=== PATIENT | male | born 1955 | race African-American/Black ===

== ENCOUNTER 2017-08-31 12:36 | Inpatient (IN) | payer MEDICARE, MEDICAID ==
[2017-08-31] MEDS ORDERED: Azithromycin 500 MG VIAL ONE (13:26)
[2017-08-31 13:29] LABS: #Lymphocytes 1.6 thou/uL (1.20-3.40); #Monocytes 0.4 thou/uL (0.11-0.59); #Neutrophils 2.7 thou/uL (1.40-6.50); %Eosinophils 0.8 % (0.0-10.0); %Lymphocytes 33.8 % (21.0-51.0); %Neutrophils 56.4 % (42.0-75.0); Hemoglobin 14.1 g/dL (14.0-18.0); Mean Corpuscular HGB CONC 33.1 g/dL (32.0-36.0); Mean Corpuscular Hemoglobin 27.5 pg (27.0-31.0); Mean Platelet Volume 7.3 fL (7.4-10.4); Platelet Count 216 thou/uL (130-400); RBC Distribution Width 12.9 % (11.5-14.5); Red Blood Cell (RBC) Count 5.12 mill/uL (4.70-6.10); White Blood Cell (WBC) Count 4.7 thou/uL (4.8-10.8)
[2017-08-31 13:46] LABS: ALT (SGPT) 8 U/L (8-55); AST (SGOT) 11 U/L (5-34); Alkaline Phosphatase 78 U/L (40-150); Anion Gap 12 mmol/L (10-20); BUN (Urea Nitrogen) 9 mg/dL (8.4-25.7); Bilirubin, Total 0.9 mg/dL (0.2-1.2); CK (CPK) 142 U/L (30-200); Calc. Creatinine Clearance 0 mL/min (70-130); Carbon Dioxide 27 mmol/L (23-31); Chloride 104 mmol/L (98-107); Estimated GFR-MDRD 77; Globulin 3.3 g/dL (2.4-3.5); Glucose 271 mg/dL (80-115); Potassium 3.8 mmol/L (3.5-5.1); Protein, Total 7.3 g/dL (5.8-8.1); Sodium 139 mmol/L (136-145)
[2017-08-31 13:48] LABS: CKMB 0.9 ng/mL (0-6.6); Troponin I Less than 0.010 ng/mL (< 0.028)
--- NOTE | 2017-08-31 13:55 | RAD ---
PORTABLE CHEST: Date: 08/31/17 HISTORY: Cough. Dyspnea. FINDINGS: Lungs appear well aerated and clear on portable projection. No infiltrate identified. Heart and media stinum unremarkable. No evidence of vascular congestion. IMPRESSION: No acute abnormality identified. POS: [facility]
[2017-08-31] MEDS ORDERED: Acetaminophen 325 MG TAB ONE (14:24)
[2017-08-31] MEDS ORDERED: methylPREDNISolone Sod Succ/PF 125 MG/2 ML VIAL ONE (14:24)
[2017-08-31] MEDS ORDERED: Calcium Carbonate 500 MG ChewTAB PO PRN (14:29)
[2017-08-31] MEDS ORDERED: Loratadine 10 MG TAB PO PRN (14:29)
[2017-08-31] MEDS ORDERED: Acetaminophen 325 MG TAB PO PRN (14:29)
[2017-08-31] MEDS ORDERED: Benzonatate 100 MG CAP PO PRN (14:29)
[2017-08-31] MEDS ORDERED: Mag-Al 1200 mg/1200 mg/30 ML UDCUP PO PRN (14:29)
[2017-08-31] MEDS ORDERED: Ondansetron HCl/PF 4 MG/2 ML Vial IVP PRN ×2 (14:29)
[2017-08-31] MEDS ORDERED: Nitroglycerin 0.4 MG TAB (25 Tab Bottle) SL PRN (14:29)
[2017-08-31] MEDS ORDERED: Bisacodyl 5 MG TAB PO PRN (14:29)
[2017-08-31] MEDS ORDERED: Senokot 8.6 MG TAB PO PRN (14:29)
[2017-08-31] MEDS ORDERED: hydrALAZINE 20 MG/ML VIAL SLOW IVP PRN (14:29)
[2017-08-31] MEDS ORDERED: cloNIDine 0.1 MG TAB PO PRN (14:29)
[2017-08-31] MEDS ORDERED: Dextrose 5% in Water 1,000 ML IV PRN (14:32)
[2017-08-31] MEDS ORDERED: Dextrose 50% Abboject 50 ML SYRINGE SLOW IVP PRN (14:32)
--- NOTE | 2017-08-31 16:03 | HP ---
DATE OF ADMISSION: 08/31/2017 PRIMARY CARE PHYSICIAN: Javier Mishra M.D. CHIEF COMPLAINT: Fever, chills, cough, shortness of breath, and malaise. HISTORY OF PRESENT ILLNESS: Mr. Mercado is a 61-year-old male with past medical history of diabetes m ellitus, tobacco abuse, as well as lower extremity DVT on chronic anticoagulation and hypertension, w ho presented to the ER with above-mentioned complaint. History is mainly obtained by the patient him self and case has been discussed with the admitting ER physician. Electronic medical records have be en reviewed. Mr. Mercado reports that he recently moved to the area about 1 month ago from [place] and has establis hed care with Dr. Mishra 1 month ago. He has been compliant with his medication, but continues to sm [place] a pack of cigarettes per day. He started to feel bad about 2 weeks ago with the above-mentioned symptoms. His nephew was sick around him. He has been having episodes of subjective fever with wors ening symptoms. He had 2 episodes of vomiting last night and got short of breath with fever, chills, and worsening cough, so he decided to present to the ER this morning. Upon presentation to the ER, he was tachycardic with heart rate of 115 and somewhat hypoxic with oxyg en saturation in low 90s on room air. Initial workup included a chest x-ray, which showed right lowe r lobe pneumonia, otherwise unremarkable. He received empiric IV antibiotics in the ER in the form o f Rocephin and azithromycin. He was also found to have significant wheezing for emergency room physi ricardo and was given IV steroids and nebulizers with improvement in his symptoms. He is now being admitted for pneumonia and acute COPD exacerbation. PAST MEDICAL HISTORY: 1. Multiple cerebrovascular accidents. According to the patient, he has had 4 strokes. 2. Diabetes mellitus type 2. 3. History of asthma versus chronic obstructive pulmonary disease. 4. Tobacco abuse. 5. Hypertension. 6. Lower extremity DVT, on anticoagulation for multiple years. 7. Dyslipidemia. 8. Gastroesophageal reflux disease. PAST SURGICAL HISTORY: 1. Lumbar spinal surgery. 2. IVC filter placement 4 years ago in [place]. ALLERGIES: No known medication allergies. CURRENT MEDICATIONS: As per the ER records: Xarelto 20 mg daily, Levemir 25 units b.i.d., amlodipin e 10 mg daily, and gabapentin 1200 mg b.i.d. SOCIAL HISTORY: He recently moved here from [place]. He needs a cane to ambulate. He continues to smoke a pack of cigarettes per day for multiple years. No history of alcohol or drug abuse. FAMILY HISTORY: Significant for stroke and diabetes in his brother. REVIEW OF SYSTEMS: The following complete review of systems was negative, unless otherwise mentioned in the HPI or below: Constitutional: Weight loss or gain, ability to conduct usual activities. Skin: Rash, itching. Eyes: Double vision, pain. ENT/Mouth: Nose bleeding, neck stiffness, pain, tenderness. Cardiovascular: Palpitations, dyspnea on exertion, orthopnea. Respiratory: Shortness of breath, wheezing, cough, hemoptysis, fever or night sweats. Gastrointestinal: Poor appetite, abdominal pain, heartburn, nausea, vomiting, constipation, or diarr hea. Genitourinary: Urgency, frequency, dysuria, nocturia. Musculoskeletal: Pain, swelling. Neurologic/Psychiatric: Anxiety, depression. Allergy/Immunologic: Skin rash, bleeding tendency. It is negative except for those mentioned in the history and physical. LABORATORY DATA: His CBC shows WBCs of 4.7, otherwise unremarkable. Serum chemistries are unremarka ble. Blood sugar is 271. Cardiac enzymes are normal. BNP is normal. Chest x-ray by my review has no evidence to suggest pleural edema. It is concerning for right lower lobe infiltrate. A 12-lead EKG by my review does not have any acute ST or T-wave changes. It shows normal sinus rhyth m at 111 beats per minute. PHYSICAL EXAMINATION: VITAL SIGNS: Upon presentation, blood pressure 131/81, pulse of 115, saturating 94% on room air, res pirations 20, temperature 99.9 with T-max of 100. GENERAL: No acute distress, awake, alert, oriented x3. He does appear somewhat ill and sweaty. HEENT: Mucous membrane is moist and pink. No oropharyngeal exudate or erythema. Head is normocepha lic, atraumatic. Pupils are equal, reactive to light and accommodation. Extraocular movements are i ntact. NECK: Supple without any lymphadenopathy, JVD or bruit. CHEST: Clear to auscultation except for faint wheezes bilaterally. CARDIOVASCULAR: Rate and rhythm is regular without any murmur, rubs or gallops. ABDOMEN: Soft, nontender, nondistended with positive bowel sounds. EXTREMITIES: Free of any cyanosis, clubbing, or edema. NEUROLOGIC: Nonfocal. SKIN: Free of any rashes or bruises. I feel warm and dry to touch. PSYCHIATRIC: Normal affect. IMPRESSION AND PLAN: 1. Right lower lobe pneumonia. The patient will be admitted and started on IV antibiotics and IV fl uids. Cultures have been obtained in the emergency room and we will follow the results. Add p.r.n. medications in the form of Mucinex, nebulizers, etc. Continue oxygen supplementation. 2. Acute chronic obstructive pulmonary disease exacerbation. We will continue with nebulizer schedu led and p.r.n. as well as IV steroids. Add Dulera scheduled basis until he is in the hospital. Cont inue oxygen supplementation to maintain sats above 95 at this time. 3. History of hypertension. We will restart his home medications of amlodipine at this time and add p.r.n. medications for further blood pressure control. 4. Diabetes mellitus type 2. Resume Levemir and add insulin sliding scale for further control with frequent Accu-Cheks. Continue his gabapentin for now. 5. History of deep venous thrombosis. The patient reports that he was told that he needs to take th e Xarelto for the rest of his life, so for this reason, we will resume his home medications. He is r eportedly status post inferior vena cava filter placement. 6. Add gastrointestinal prophylaxis. 7. Code status: FULL CODE. Discussed with the patient. DISPOSITION: Mr. Mercado is currently being admitted to the hospital for acute COPD exacerbation and right lower lobe pneumonia. He is hemodynamically stable and will be admitted to medical floor. Est imated length of stay at this time is 2-3 midnight. Further management will depend upon his clinical course.
[2017-08-31] MEDS ORDERED: traZODone HCl 50 MG TAB PO PRN (16:06)
[2017-08-31 17:04] VITALS: BMI 37.7
[2017-08-31 17:10] LABS: Troponin I Less than 0.010 ng/mL (< 0.028)
[2017-08-31] MEDS: Sodium Chloride 0.9% 1,000 ML IV SCH (17:20)
[2017-08-31] MEDS: Rivaroxaban 10 MG TAB PO SCH (17:23)
[2017-08-31] MEDS: HumaLOG 300 UNITS/3 ML VIAL SC PRN ×2 (17:27→21:07)
[2017-08-31] MEDS ORDERED: Insulin Detemir 100 UNITS/ML 25 UNITS in Pre-Filled Syringe 1 EACH SC SCH (21:00)
[2017-08-31] MEDS: Gabapentin 400 MG CAP PO SCH (21:02)
[2017-08-31] MEDS: Famotidine 20 MG TAB PO SCH (21:03)
[2017-08-31] MEDS: guaiFENesin ER 600 MG TAB PO SCH (21:03)
[2017-08-31] MEDS: Mometasone/Formoterol 120 PUFF INHALER INH SCH (21:09)
[2017-08-31 23:08] LABS: Troponin I Less than 0.010 ng/mL (< 0.028)
[2017-09-01] MEDS: HumaLOG 300 UNITS/3 ML VIAL SC PRN ×4 (05:22→21:39)
[2017-09-01 05:39] LABS: #Lymphocytes 1.4 thou/uL (1.20-3.40); #Monocytes 0.1 thou/uL (0.11-0.59); #Neutrophils 3.5 thou/uL (1.40-6.50); %Basophils 0.2 % (0.0-1.0); %Eosinophils 0.1 % (0.0-10.0); %Lymphocytes 27.7 % (21.0-51.0); %Monocytes 2.7 % (0.0-10.0); %Neutrophils 69.3 % (42.0-75.0); Hemoglobin 13.2 g/dL (14.0-18.0); Mean Corpuscular HGB CONC 31.9 g/dL (32.0-36.0); Mean Corpuscular Hemoglobin 26.5 pg (27.0-31.0); Mean Corpuscular Volume 82.9 fl (80.0-94.0); Mean Platelet Volume 7.5 fL (7.4-10.4); Platelet Count 219 thou/uL (130-400); RBC Distribution Width 12.9 % (11.5-14.5); Red Blood Cell (RBC) Count 4.98 mill/uL (4.70-6.10)
[2017-09-01 05:50] LABS: Anion Gap 12 mmol/L (10-20); BUN (Urea Nitrogen) 13 mg/dL (8.4-25.7); Calc. Creatinine Clearance 95 mL/min (70-130); Calcium 9.2 mg/dL (7.8-10.44); Carbon Dioxide 26 mmol/L (23-31); Chloride 104 mmol/L (98-107); Estimated GFR-MDRD 81; Glucose 416 mg/dL (80-115); Potassium 3.9 mmol/L (3.5-5.1); Sodium 138 mmol/L (136-145)
[2017-09-01] MEDS: Mometasone/Formoterol 120 PUFF INHALER INH SCH ×2 (06:58→19:00)
[2017-09-01] MEDS ORDERED: Spiriva 18 MCG CAP (Box of 5 Caps) INH SCH (07:00)
[2017-09-01] MEDS: Nicotine 21 MG PATCH TD SCH (07:56)
[2017-09-01] MEDS: Amlodipine 10 MG TAB PO SCH ×2 (07:57)
[2017-09-01] MEDS: Famotidine 20 MG TAB PO SCH ×2 (07:57→21:37)
[2017-09-01] MEDS: Gabapentin 400 MG CAP PO SCH ×3 (07:57→21:37)
[2017-09-01] MEDS: guaiFENesin ER 600 MG TAB PO SCH ×2 (08:02→21:37)
[2017-09-01] MEDS ORDERED: Enoxaparin Sodium 40 MG/0.4 ML SYRINGE SC SCH (09:00)
[2017-09-01] MEDS ORDERED: Insulin Detemir 100 UNITS/ML 25 UNITS in Pre-Filled Syringe 1 EACH SC SCH (09:00)
[2017-09-01] MEDS ORDERED: Dextrose 5% in Water 1,000 ML IV PRN (11:46)
[2017-09-01] MEDS ORDERED: Dextrose 50% Abboject 50 ML SYRINGE SLOW IVP PRN (11:46)
[2017-09-01] MEDS: Sodium Chloride 0.9% 1,000 ML IV SCH (11:51)
[2017-09-01] MEDS ORDERED: Azithromycin 500 MG in Sodium Chloride 0.9% 250 ML 250 ML IVPB SCH (13:00)
--- NOTE | 2017-09-01 13:58 | PDOC.PN ---
- Subjective Encounter Start Date: 09/01/17 Encounter Start Time: 13:56 Subjective: feels much better ,still some cough but much better -: no more fever/chills/SOB - Objective MAR Reviewed: Yes Vital Signs & Weight: Vital Signs (12 hours) Temp Pulse Resp BP BP Pulse Ox 09/01/17 11:11 97.5 F L 93 16 146/77 H 97 09/01/17 08:00 97.8 F 94 16 94 L 09/01/17 07:57 94 138/81 09/01/17 07:27 97.8 F 94 16 138/81 94 L 09/01/17 06:56 86 20 96 09/01/17 04:00 98.0 F 86 20 130/76 96 I&O: 08/31/17 09/01/17 09/02/17 06:59 06:59 06:59 Intake Total 1800 240 Output Total 800 Balance 1000 240 Result Diagrams: 09/01/17 04:53 09/01/17 04:53 Additional Labs: Accuchecks 09/01/17 09/01/17 08/31/17 11:12 04:03 16:32 POC Glucose 406 H 389 H 242 H Microbiology 08/31/17 13:25 Venous blood - Right Hand Blood Culture - Preliminary Specimen has been received and culture in progress. No Growth to date. 08/31/17 13:16 Venous blood - Left Arm Blood Culture - Preliminary Specimen has been received and culture in progress. No Growth to date. Phys Exam - Physical Examination Constitutional: NAD HEENT: PERRLA, moist MMs, sclera anicteric, oral pharynx no lesions Neck: no nodes, no JVD, supple, full ROM Respiratory: no wheezing, no rales, no rhonchi, clear to auscultation bilateral Cardiovascular: RRR, no significant murmur, no rub, gallop Gastrointestinal: soft, non-tender, no distention, positive bowel sounds Musculoskeletal: no edema, pulses present Neurological: non-focal, normal sensation, moves all 4 limbs Psychiatric: normal affect, A&O x 3 Dx/Plan (1) PNA (pneumonia) Code(s): J18.9 - PNEUMONIA, UNSPECIFIED ORGANISM Status: Acute (2) Acute exacerbation of chronic obstructive pulmonary disease (COPD) Code(s): J44.1 - CHRONIC OBSTRUCTIVE PULMONARY DISEASE W (ACUTE) EXACERBATION Status: Acute Comment: Cont IV steroids,nebs,mucinex,abx,dulera (3) H/O: CVA (cerebrovascular accident) Code(s): Z86.73 - PRSNL HX OF TIA (TIA), AND CEREB INFRC W/O RESID DEFICITS Status: Chronic (4) History of VT (myocardial infarction) Code(s): I25.2 - OLD MYOCARDIAL INFARCTION Status: Chronic (5) Type II diabetes mellitus Status: Chronic Qualifiers: Diabetes mellitus complication status: with hyperglycemia (6) Anticoagulant long-term use Code(s): Z79.01 - CARE HOME (CURRENT) USE OF ANTICOAGULANTS Status: Chronic (7) Diabetes type 2, uncontrolled Code(s): E11.65 - TYPE 2 DIABETES MELLITUS WITH HYPERGLYCEMIA Status: Chronic (8) History of DVT (deep vein thrombosis) Code(s): Z86.718 - PERSONAL HISTORY OF OTHER VENOUS THROMBOSIS AND EMBOLISM Status: Chronic Comment: on xarelto (9) Hyperlipidemia Code(s): E78.5 - HYPERLIPIDEMIA, UNSPECIFIED Status: Chronic (10) Hypertension Code(s): I10 - ESSENTIAL (PRIMARY) HYPERTENSION Status: Chronic - Plan continue antibiotics, PT/OT, out of bed/ambulate, DVT proph w/SCDs cont empiric ABx.following blood Cx results & clinically.supportive care -: add OT/PT.HH on DC -: cont home meds as below. -: HD stable.Likley DC home in am if continues to do better -: am labs.WBC back to normal today.Increase ISS as BS very high * . Review of Systems - Review of Systems Constitutional: weakness, malaise. negative: fever, chills, sweats, other ENT: negative: Ear Pain, Ear Discharge, Nose Pain, Nose Discharge, Nose Congestion, Mouth Pain, Mouth Swelling, Throat Pain, Throat Swelling, Other Respiratory: Cough, SOB with Excertion Cardiovascular: negative: chest pain, palpitations, orthopnea, paroxysmal nocturnal dyspnea, edema, light headedness, other Gastrointestinal: negative: Nausea, Vomiting, Abdominal Pain, Diarrhea, Constipation, Melena, Hematochezia, Other Genitourinary: negative: Dysuria, Frequency, Incontinence, Hematuria, Retention , Other Musculoskeletal: negative: Neck Pain, Shoulder Pain, Arm Pain, Back Pain, Hand Pain, Leg Pain, Foot Pain, Other Skin: negative: Rash, Lesions, Aguilar, Bruising, Other Neurological: negative: Weakness, Numbness, Incoordination, Change in Speech, Confusion, Seizures, Other - Medications/Allergies Allergies/Adverse Reactions: Allergies Allergy/AdvReac Type Severity Reaction Status Date / Time No Known Allergies Allergy Verified 07/11/14 04:24 Medications: Current Medications Acetaminophen (Tylenol) 650 mg PO Q4H PRN PRN Reason: Headache/Fever or Pain Al Hydroxide/Mg Hydroxide (Maalox) 30 ml PO Q6H PRN PRN Reason: Heartburn or Indigestion Albuterol/Ipratropium (Duoneb) 3 ml NEB Q4H PRN PRN Reason: SOB &/or Wheezing Albuterol/Ipratropium (Duoneb) 3 ml NEB [id number] [facility] Last Admin: 09/01/17 06:56 Dose: 3 ml Amlodipine Besylate (Norvasc) 10 mg PO DAILY [facility] Last Admin: 09/01/17 07:57 Dose: 10 mg Aspirin (Ecotrin) 81 mg PO DAILY [facility] Atorvastatin Calcium (Lipitor) 80 mg PO HS [facility] Benzonatate (Tessalon) 100 mg PO Q4H PRN PRN Reason: Cough Last Admin: 09/01/17 12:03 Dose: 100 mg Bisacodyl (Dulcolax) 10 mg PO DAILYPRN PRN PRN Reason: Constipation Calcium Carbonate (Tums) 1,000 mg PO Q4H PRN PRN Reason: Heartburn or Indigestion Clonidine (Catapres) 0.1 mg PO Q4H PRN PRN Reason: Systolic BP > 160 Dextrose/Water (Dextrose 50%) 25 gm SLOW IVP PRN PRN PRN Reason: Hypoglycemia Famotidine (Pepcid) 20 mg PO BID [facility] Last Admin: 09/01/17 07:57 Dose: 20 mg Gabapentin (Neurontin) 1,200 mg PO BID [facility] Last Admin: 09/01/17 09:50 Dose: Not Given Glucagon (Glucagon) 1 mg IM PRN PRN PRN Reason: Hypoglycemia Guaifenesin (Robitussin Sf) 200 mg PO Q4H PRN PRN Reason: Cough Guaifenesin (Mucinex) 1,200 mg PO Q12HR [facility] Last Admin: 09/01/17 08:02 Dose: 1,200 mg Hydralazine HCl (Apresoline) 10 mg SLOW IVP Q4H PRN PRN Reason: Systolic BP > 170 Azithromycin 500 mg/ Sodium (Chloride) 250 mls @ 250 mls/hr IVPB 1300 [facility] Ceftriaxone Sodium 1 gm/ (Sodium Chloride) 100 mls @ 200 mls/hr IVPB 1400 [facility] Sodium Chloride (Normal Saline 0.9%) 1,000 mls @ 50 mls/hr IV .Q20H [facility] Last Admin: 09/01/17 11:51 Dose: 1,000 mls Dextrose/Water (D5w) 1,000 mls @ 0 mls/hr IV .Q0M PRN; As Directed PRN Reason: Hypoglycemia Insulin Detemir 25 units/ (Miscellaneous Medication) 0.25 mls @ 0 mls/hr SC BID [facility] Insulin Human Lispro (Humalog) 0 units SC .BEDTIME SLIDING SC PRN PRN Reason: Bedtime Correctional Scale Last Admin: 08/31/17 21:07 Dose: 5 unit Insulin Human Lispro (Humalog) 0 units SC .AGGRESSIVE SLIDING PRN PRN Reason: Aggressive Correctional Scale Last Admin: 09/01/17 12:43 Dose: 13 unit Lactulose (Lactulose) 20 gm PO DAILYPRN PRN PRN Reason: Constipation Lisinopril (Zestril) 20 mg PO BID [facility] Loratadine (Claritin) 10 mg PO DAILYPRN PRN PRN Reason: Sinus Symptoms Methylprednisolone Sodium Succinate (Solu-Medrol) 40 mg IVP Q6HR [facility] Last Admin: 09/01/17 11:51 Dose: 40 mg Metoprolol Succinate (Toprol Xl) 50 mg PO DAILY [facility] Mometasone Furoate/Formoterol Fumar (Dulera 200 Mcg/5 Mcg Inhaler) 1 puff INH BID-RT [facility] Last Admin: 09/01/17 06:58 Dose: 1 puff Nicotine (Nicoderm Patch) 21 mg TD DAILY [facility] Last Admin: 09/01/17 07:56 Dose: 21 mg Nitroglycerin (Nitrostat) 0.4 mg SL Q5MIN PRN PRN Reason: Chest Pain Ondansetron HCl (Zofran) 4 mg IVP Q6H PRN PRN Reason: Nausea/Vomiting Rivaroxaban (Xarelto) 20 mg PO 1800 [facility] Last Admin: 08/31/17 17:23 Dose: 20 mg Senna (Senokot) 2 tab PO HSPRN PRN PRN Reason: Constipation Sodium Chloride (Flush - Normal Saline) 10 ml IVF Q12HR [facility] Last Admin: 09/01/17 08:20 Dose: Not Given Sodium Chloride (Flush - Normal Saline) 10 ml IVF PRN PRN PRN Reason: Saline Flush Trazodone HCl (Desyrel) 50 mg PO HS PRN PRN Reason: Insomnia
[2017-09-01] MEDS ORDERED: cefTRIAXone\\ROCEPHIN 1 GM in Sodium Chloride 0.9% 100 ML IVPB SCH (14:00)
[2017-09-01] MEDS: Diabetic Tussin 200 MG/10 ML UDCUP PO PRN ×2 (14:14→21:45)
[2017-09-01] MEDS ORDERED: Nicotine 21 MG PATCH TD SCH (16:15)
[2017-09-01] MEDS: Rivaroxaban 10 MG TAB PO SCH (17:14)
[2017-09-01] MEDS ORDERED: Atorvastatin Calcium 40 MG TAB PO SCH (21:00)
[2017-09-01] MEDS ORDERED: Non-Formulary Item 1 EACH (Insulin Detemir 100 Units/Ml [Levemir] 25 UNIT) SC SCH (21:00)
[2017-09-01] MEDS: Lisinopril 20 MG TAB PO SCH (21:38)
[2017-09-01] MEDS: Insulin Detemir 100 UNITS/ML 25 UNITS in Pre-Filled Syringe 1 EACH SC SCH (21:39)
[2017-09-01] MEDS ORDERED: Nicotine 14 MG PATCH TOP SCH (22:30)
[2017-09-02] MEDS: Diabetic Tussin 200 MG/10 ML UDCUP PO PRN (05:17)
[2017-09-02] MEDS: HumaLOG 300 UNITS/3 ML VIAL SC PRN (05:26)
[2017-09-02] MEDS: Mometasone/Formoterol 120 PUFF INHALER INH SCH (07:08)
[2017-09-02 07:54] VITALS: BP 144/90; TEMP 97.5
[2017-09-02] MEDS ORDERED: Aspirin 81 mg Enteric Coated Tablet PO SCH (09:00)
[2017-09-02] MEDS: Famotidine 20 MG TAB PO SCH (09:48)
[2017-09-02] MEDS: guaiFENesin ER 600 MG TAB PO SCH (09:48)
[2017-09-02] MEDS: Lisinopril 20 MG TAB PO SCH (09:48)
[2017-09-02] MEDS: Amlodipine 10 MG TAB PO SCH (09:48)
[2017-09-02] MEDS: Insulin Detemir 100 UNITS/ML 25 UNITS in Pre-Filled Syringe 1 EACH SC SCH (09:49)
[2017-09-02] MEDS: Gabapentin 400 MG CAP PO SCH (09:49)
[2017-09-02] MEDS: Nicotine 21 MG PATCH TD SCH (10:35)
[2017-09-02] MEDS ORDERED: FLUOCINOLONE ACETONIDE TOP PRN (10:59)
[2017-09-02] MEDS: Sodium Chloride 0.9% 1,000 ML IV SCH (11:15)
--- NOTE | 2017-09-02 13:18 | DIS ---
DATE OF ADMISSION: 08/31/2017 DATE OF DISCHARGE: 09/02/2017 DISCHARGE DIAGNOSES: 1. Community-acquired pneumonia. 2. Acute exacerbation of chronic obstructive pulmonary disease. 3. History of multiple cerebrovascular accidents in the past. 4. History of coronary artery disease and myocardial infarction. 5. Type 2 diabetes mellitus. 6. History of deep venous thrombosis, on chronic anticoagulation. 7. Dyslipidemia. 8. Hypertension. DISCHARGE MEDICATIONS: As follows. Augmentin 875 mg every 12 hours for 7 more days, albuterol inhal er q.i.d. p.r.n., Tessalon Perles 100 mg every 4 hours p.r.n., DuoNeb q.i.d. p.r.n. nebulizer accesso [place], nicotine patch 21 mg daily, Mucinex 1200 mg p.o. q.12 hours for 3 more days, Medrol Dosepak. Resume home medications as follows. Norvasc 10 mg daily, Xarelto 20 mg daily, metoprolol succinate 5 0 mg daily, gabapentin 1200 mg b.i.d., Levemir 25 units at bedtime, Lipitor 40 mg daily, glimepiride 2 mg daily, losartan/hydrochlorothiazide 50/12.5 mg daily and Protonix 40 mg daily. PRIMARY CARE PHYSICIAN: Dr. Aníbal Bender at [facility]. HISTORY OF PRESENTING ILLNESS: Mr. Mercado is a pleasant 61-year-old male with past medical history o f multiple CVAs, coronary artery disease and DVT, on chronic Xarelto as well as tobacco abuse and pos sibly a diagnosed COPD who presented to the emergency room with complaints of fever, chills, cough, s hortness of breath and malaise. In the emergency room, he was somewhat tachycardic and hypoxic and a chest x-ray showed right lower lobe pneumonia. He was admitted after receiving supportive care with empiric IV antibiotics and fluids. He was also found to be in acute COPD exacerbation with wheezing and required IV steroids and nebulizers upon presentation. Please see admission history and physica l for further detail. HOSPITAL COURSE: The patient was continued on IV antibiotics and IV steroids along with addition of long-acting inhaled bronchodilators and steroids as well as nebulizers. He had a quick resolution of his symptoms. He still has some persistent cough for which he was given Mucinex, Tessalon and inhal ers as well as nebulizers. His blood cultures were obtained and remained negative until date. By the time of discharge, he is back to his baseline and is not on any supplemental oxygen, walking u p and down the [place]. Home health has been arranged for him. He was seen and examined prior to discharge. PHYSICAL EXAMINATION: This morning include, VITAL SIGNS: Temperature 97.5, pulse of 98, respirations 18, saturating 96% on room air, blood press ure 144/90. GENERAL: No acute distress, awake, alert and oriented x3. CHEST: Clear to auscultation without any wheezing, rales or rhonchi bilaterally. Rate and rhythm is regular without any murmur, rubs or gallops. NEUROLOGICAL: Nonfocal. Discharge plan was discussed with the patient and his son and [id number] present in the room. M edications were reconciled. There was a lot of discrepancies in his home medication list that were c hecked and modified. His primary care physician is Dr. Bender over at [facility]. The patient is instructed to follow up with his primary care physician in 1 week. At this time, he is hemodynam ically stable and will be discharged home.
[2017-09-02] MEDS ORDERED: cefTRIAXone\\ROCEPHIN 1 GM, Syringe 0.4 ML in Sterile Water 9.6 ML SLOW IVP SCH (14:00)
[2017-09-02] MEDS ORDERED: GABAPENTIN 1200 MG PO SCH (21:00)
[2017-09-02] MEDS ORDERED: Gabapentin 400 MG CAP PO SCH (21:00)
[2017-09-03] MEDS ORDERED: Glimepiride 2 MG TAB PO SCH (08:00)
[2017-09-03] MEDS ORDERED: Amlodipine 10 MG TAB PO SCH (09:00)
[2017-09-03] MEDS ORDERED: Rivaroxaban 10 MG TAB PO SCH ×2 (09:00)
[2017-09-03] MEDS ORDERED: Atorvastatin Calcium 40 MG TAB PO SCH (09:00)
[2017-09-03] MEDS ORDERED: Nicotine 21 MG PATCH TD SCH (09:00)
== END 2017-09-02 12:10 | disposition home health service (06) | DRG 194 ==
LOC: ERS 12:36 → T4-A 14:36
PROVIDERS: ADMIT Internal Medicine; ATTEND Internal Medicine
DX: J18.9 Pneumonia, unspecified organism (principal); J44.1 Chronic obstructive pulmonary disease with (acute) exacerbation; J44.0 Chronic obstructive pulmonary disease with (acute) lower respiratory infection; E11.9 Type 2 diabetes mellitus without complications; I10 Essential (primary) hypertension; E78.5 Hyperlipidemia, unspecified; K21.9 Gastro-esophageal reflux disease without esophagitis; Z86.73 Personal history of transient ischemic attack (TIA), and cerebral infarction without residual deficits; Z79.01 Long term (current) use of anticoagulants; I25.2 Old myocardial infarction; Z86.718 Personal history of other venous thrombosis and embolism
CPT/HCPCS: 36415; 36416; 71045; 80048; 80053; 82553; 83605; 83880; 84484; 85025; 87040; 93005; 94640; 96365; 96375; 99406; A4216; G8978-GP-CI; G8979-GP-CI; G8980-GP-CI; G8987-GO-CJ; G8988-GO-CJ; G8989-GO-CJ; J0456; J0696; J1815; J2920; J2930; J7050; J7620

== ENCOUNTER 2018-11-30 21:58 | Inpatient (IN) | payer MEDICAID, MEDICARE ==
[~2018-11-30 21:58] MED LIST: ISOVUE-370 76%-LOCM 1 ML ONE
--- NOTE | 2018-11-30 22:30 | RAD ---
CHEST ONE VIEW PORTABLE: History: Right chest wall pain when he coughs. Comparison: 08-31-17 FINDINGS: Heart size is normal. The lungs are clear. There is no pneumothorax or pleural effusion. No pulmonary parenchymal process. Loop recorder overlies the left chest. IMPRESSION: No significant acute intrathoracic disease. Stable from prior study. POS: [facility]
[2018-11-30 22:36] LABS: Hemoglobin 13.9 g/dL (14.0-18.0); Mean Corpuscular Hemoglobin 28.7 pg (27.0-31.0); Mean Corpuscular Volume 86.8 fL (78.0-98.0); Mean Platelet Volume 7.6 fL (7.4-10.4); Platelet Count 237 thou/uL (130-400); RBC Distribution Width 12.9 % (11.5-14.5); Red Blood Cell (RBC) Count 4.84 mill/uL (4.70-6.10); White Blood Cell (WBC) Count 4.8 thou/uL (4.8-10.8)
[2018-11-30 22:53] LABS: ALT (SGPT) 9 U/L (8-55); AST (SGOT) 8 U/L (5-34); Albumin 4.3 g/dL (3.4-4.8); Alkaline Phosphatase 105 U/L (40-150); Anion Gap 13 mmol/L (10-20); BUN (Urea Nitrogen) 10 mg/dL (8.4-25.7); Bilirubin, Total 0.4 mg/dL (0.2-1.2); Calc. Creatinine Clearance 0 mL/min (70-130); Calcium 9.8 mg/dL (7.8-10.44); Carbon Dioxide 26 mmol/L (23-31); Chloride 102 mmol/L (98-107); Estimated GFR-MDRD 72; Glucose 451 mg/dL (80-115); Lipase 75 U/L (8-78); Potassium 3.8 mmol/L (3.5-5.1); Protein, Total 7.3 g/dL (5.8-8.1); Sodium 137 mmol/L (136-145)
[2018-11-30 23:04] LABS: Band 1 % (5-11); Eosinophils 2 % (0-10); Lymphocytes 58 % (21-51); MDiff Complete? YES; Monocytes 5 % (0-10); Neutrophil 31 % (42-75); Reactive Lymphocytes 3 % (0-10)
[2018-12-01] MEDS ORDERED: Acetaminophen 500 MG TAB ONE (00:13)
[2018-12-01] MEDS ORDERED: Ondansetron PF 4 MG/2 ML Vial ONE (00:13)
[2018-12-01 00:40] LABS: Bacteria/HPF None Seen HPF (None Seen); Bilirubin Negative (Negative); Blood, Urine Trace (Negative); Clarity Clear (Clear); Glucose, Urine (Dipstick) Greater than 1000 mg/dL (Negative); Leukocyte Negative Leu/uL (Negative); Nitrite Negative (Negative); Protein, Urine (Dipstick) 20 mg/dL (Neg-Trace); Squamous Epithelial 0-3 HPF (0-3); Urobilinogen Normal mg/dL (Less than 2); WBC/HPF 0-3 HPF (0-3); Yeast-Budding 2+ HPF (None Seen)
[2018-12-01 01:03] LABS: INR-International Normal Ratio 1.1; PTT 22.1 SEC (22.9-36.1); Prothrombin Time 13.8 SEC (12.0-14.7)
[2018-12-01 02:08] LABS: Troponin I 0.016 ng/mL (< 0.028)
[2018-12-01] MEDS ORDERED: Aspirin 325 MG TAB ONE (02:37)
[2018-12-01 05:28] LABS: Troponin I Less than 0.010 ng/mL (< 0.028)
--- NOTE | 2018-12-01 08:14 | CT ---
PRELIMINARY REPORT/[facility]/EMERGENCY AFTER HOURS PROCEDURE: EXAM: CT Angiography Chest With Contrast EXAM DATE/TIME: 12/01/2018 12:09 AM CLINICAL HISTORY: 62 years old, male; Chest wall pain; Patient HX: 62yom with a pmh significant for mix5 w/ cad S/P victor m nt placement, HTN, iddmii, and h/o CVA w/ residual r-sided deficits who presented to the ED with a cc of r-sided chest pain that began yesterday around noon. The patient stated that he felt the pain [place] rtly after waking up while sitting at home and states it is sharp and non-radiating in character. He reports exacerbation with coughing and taking a deep breath and says the pain only lasts a few second during these activities. Denies any associated fever/chills, n/v or wheezing. States cough is non-productive. Denies any known chf history. Reports le edema. TECHNIQUE: Imaging protocol: Axial computed tomographic angiography images of the chest with intravenous contras t using CT angiography protocol. Coronal and sagittal reformatted images were created and reviewed. 3D rendering: MIP reconstructed images were created and reviewed. COMPARISON: No relevant prior studies available. FINDINGS: Pulmonary arteries: Normal. No pulmonary emboli. Aorta: Unremarkable. No aortic aneurysm. No aortic dissection. Lungs: Unremarkable. No consolidation. No masses. Pleural space: A 1.6 cm pleural-based nodule is seen in the right middle lobe. No pneumothorax. No pl eural effusion. Heart: Unremarkable. No cardiomegaly. No pericardial effusion. Lymph nodes: Unremarkable. No enlarged lymph nodes. Bones/joints: Unremarkable. No acute fracture. Lumbar spine degenerative changes are noted. Soft tissues: Unremarkable. IMPRESSION: 1. 1.6 cm pleural-based nodule is seen in the right middle lobe. 2. No evidence of pulmonary embolism. Thank you for allowing us to participate in the care of your patient. Dictated and Authenticated by: Onelia Vegas MD 12/01/2018 12:30 AM Central Time ([place] & [place]) FINAL REPORT CT ANGIOGRAM OF CHEST: Date: 11/30/18 COMPARISON: 10/09/12. HISTORY: Chest pain. COMPARISON: 10/09/14. TECHNIQUE: CT angiogram of the chest is performed in the axial plane. Three-dimensional reformatted images are s ubmitted for interpretation. FINDINGS: No mediastinal mass, lymphadenopathy, or hematoma. No evidence of cardiomegaly. No significant perica rdial fluid. There are coronary artery calcifications. Visualized solid organs are grossly unremarkable. Trachea and central bronchi are patent. Stable pleural based opacity along the middle lobe. Adequate contrast opacification of the pulmonary arterial system to the level of the segmental arteri es. No filling defect to suggest thromboembolism. Normal caliber aorta. No aneurysm or dissection. IMPRESSION: This report is in agreement with the preliminary report by [facility]. No evidence of pulmonary artery embo lism to the level of the segmental arteries. The 1.6 cm pleural based nodule is unchanged from September 28. POS: [facility]
[2018-12-01] MEDS ORDERED: Dextrose 5% in Water 1,000 ML IV PRN (10:14)
[2018-12-01] MEDS ORDERED: Acetaminophen 325 MG TAB PO PRN (10:14)
[2018-12-01] MEDS ORDERED: Ondansetron PF 4 MG/2 ML Vial IVP PRN (10:14)
[2018-12-01] MEDS ORDERED: Dextrose 50% Abboject 50 ML SYRINGE SLOW IVP PRN (10:14)
[2018-12-01] MEDS ORDERED: Guaifenesin DM 100-10/5 ML UDCUP PO PRN (10:14)
[2018-12-01] MEDS ORDERED: HumaLOG 300 UNITS/3 ML VIAL SC PRN (10:14)
[2018-12-01] MEDS ORDERED: Bisacodyl 10 MG SUPP PR PRN (10:14)
[2018-12-01] MEDS ORDERED: Sodium Chloride 0.9% 1,000 ML IV SCH (10:15)
--- NOTE | 2018-12-01 11:58 | ULT ---
EXAM: Abdominal ultrasound complete: HISTORY: Abdominal pain, right upper quadrant pain, concern for cholecystitis COMPARISON: None FINDINGS: The liver appears unremarkable. The gallbladder is partially contracted with some diffuse gallbladder wall thickening but no overt pe richolecystic fluid. Appearance is not significantly changed from 07/11/2014 study. No evidence of gallstones. The common bile duct is dilated at 1 cm without significant intrahepatic ductal dilatation. Visualized pancreas: Unremarkable. Visualized abdominal aorta: Unremarkable. Visualized IVC: Unremarkable. Visualized spleen: Unremarkable. Visualized kidneys: No evidence for hydronephrosis or solid or cystic mass. No mass, abscess, adenopathy, or abnormal fluid collection or other acute process. IMPRESSION: No evidence for gallstones although the gallbladder is partially contracted with diffuse wall thicken ing. Given concern for acute cholecystitis, follow-up nuclear medicine hepatobiliary scan. Dilated common bile duct at 1.0 cm without significant intrahepatic ductal dilatation.
[2018-12-01 13:26] LABS: ALT (SGPT) 7 U/L (8-55); AST (SGOT) 9 U/L (5-34); Albumin 3.9 g/dL (3.4-4.8); Alkaline Phosphatase 92 U/L (40-150); Anion Gap 8 mmol/L (10-20); BUN (Urea Nitrogen) 8 mg/dL (8.4-25.7); Bilirubin, Total 0.4 mg/dL (0.2-1.2); Calc. Creatinine Clearance 110 mL/min (70-130); Calcium 9.1 mg/dL (7.8-10.44); Carbon Dioxide 28 mmol/L (23-31); Chloride 105 mmol/L (98-107); Estimated GFR-MDRD Greater than 90; Globulin 3.2 g/dL (2.4-3.5); Glucose 288 mg/dL (80-115); Potassium 3.7 mmol/L (3.5-5.1); Protein, Total 7.1 g/dL (5.8-8.1); Sodium 137 mmol/L (136-145)
--- NOTE | 2018-12-01 15:33 | CT ---
CT ABDOMEN AND PELVIS WITHOUT CONTRAST: Date: 12/01/18 Axial tomograms obtained. Oral contrast was given. IV contrast had been given earlier today for a CTA of chest. INDICATION: Right abdominal pain. FINDINGS: Liver, spleen, and pancreas are unremarkable. Left adrenal gland is mildly prominent, possibly repres enting hyperplasia or slight nodularity. Kidneys show faint contrast in the calices and pyramid regions, probably due to recent contrast admin istration. Papillary calcifications cannot be excluded. No hydronephrosis. Ureters are normal caliber . Urinary bladder shows a thickened wall. Prostate is mildly enlarged, impinging on the floor of the bl adder. Cystitis should be considered. Small bowel loops are normal caliber. The appendix shows gaseous distention and appears unremarkable. Stool is seen throughout the colon. Aorta normal caliber. No adenopathy apparent. IMPRESSION: 1. Medullary nephrocalcinosis cannot be excluded, although some of the density seen in the region of the papilla of both kidneys may be due to recent contrast injection. There is no hydronephrosis or u rinary calculus identified. 2. The urinary bladder shows abnormal wall thickening. Cystitis should be considered. POS: [facility]
--- NOTE | 2018-12-01 15:37 | HP ---
REASON FOR ADMISSION: Abdominal pain likely acute cholecystitis. HISTORY OF PRESENTING ILLNESS: The patient gives history of abdominal pain in the right upper quadrant from 3 p.m. yesterday. This started out as 10/10 in intensity, and currently, it is around 2/10. It is colicky pain. Initial pain woke him up from his afternoon nap. It got worse with moving. No radiation of this pain. No complaints of chest pain, shortness of breath, palpitation, PND, or orthopnea. No fever at home. PAST MEDICAL AND SURGICAL HISTORY: History of coronary artery disease with prior stenting. Diabetes mellitus type 2. History of CVA with right hemiparesis with right upper extremity being affected more than lower, he is a right-handed person. History of [place]. Likely COPD. CURRENT MEDICATIONS: The patient is on, 1. Xarelto 20 mg daily. 2. Levemir 25 units subcu twice daily. 3. Norvasc 10 mg daily. 4. Gabapentin 1200 mg p.o. twice daily. ALLERGIES: NO KNOWN DRUG ALLERGIES. PERSONAL HISTORY: He smokes 1 pack a day. Does not abuse alcohol or drugs. He lives with his son, Mr. Shin Mercado. FAMILY HISTORY: Mother in her 50s from she had massive CVA. Father had unknown cancer and at the age of 76. CODE STATUS: Full. Power of patent attorney is his son, Mr. Shin Mercado. REVIEW OF SYSTEMS: CONSTITUTIONAL: Negative for weight loss or gain, ability to conduct usual activities. SKIN: Negative for rash, itching. EYES: Negative for double vision, pain. ENT/MOUTH: Negative for nose bleeding, neck stiffness, pain, tenderness. CARDIOVASCULAR: Negative for palpitations, dyspnea on exertion, orthopnea. RESPIRATORY: Negative for shortness of breath, wheezing, cough, hemoptysis, fever or night sweats. GASTROINTESTINAL: Negative for poor appetite, abdominal pain, heartburn, nausea , vomiting, constipation, or diarrhea. GENITOURINARY: Negative for urgency, frequency, dysuria, nocturia. MUSCULOSKELETAL: Negative for pain, swelling. NEUROLOGIC/PSYCHIATRIC: Negative for anxiety, depression. ALLERGY/IMMUNOLOGIC: Negative for skin rash, bleeding tendency. PHYSICAL EXAMINATION: GENERAL: The patient is a 62-year-old male, who is currently not in any acute distress. VITAL SIGNS: Blood pressure 150/86, pulse 84 per minute, respiratory rate 18 per minute, temperature 97.5 degrees Fahrenheit, and saturating 92% on room air. NECK: Supple. No elevated JVD. HEENT: Eyes; extraocular muscles intact. Pupils reacting to light. Oral cavity, mucous membranes are moist. No exudates or congestion. CARDIOVASCULAR: S1 and S2 heard. Regular rhythm. RESPIRATORY: Air entry 1+ bilateral. Scattered rhonchi plus no rales or wheezes. ABDOMEN: Soft. There is mild tenderness on deep palpation in right upper quadrant. No rigidity or guarding. Bowel sounds are heard. EXTREMITIES: There is 1+ peripheral edema. No calf tenderness. VASCULAR: Peripheral pulses 1+ bilateral. No ischemic ulcerations or gangrene. CENTRAL NERVOUS SYSTEM: The patient has right upper extremity strength of 2 to 3/5, right lower extremity strength of 4 to 5/5. Left upper and lower extremity 5/5 strength. Right-sided weakness is due to prior CVA. No new gross focal deficits noted. PSYCHIATRIC: No obvious hallucinations or delusions. IMAGING STUDIES: EKG done shows normal sinus rhythm at 95 beats per minute. There is Q-wave seen in lead II, III, aVF. Poor R-wave progression. CT angio chest done shows no evidence of PE. There is a 1.6 cm pleural-based nodule in the right middle lobe. Right upper quadrant ultrasound done shows no evidence of gallstones, although gallbladder is partially contracted with diffuse wall thickening. HIDA scan is pending at present. Dilated CBD at 1 cm without significant intrahepatic dilatation. A CT of the abdomen and pelvis is done. The official results are pending at present. LABORATORY DATA: White count of 5, H and H 13 and 42, platelet count 237, MCV 86 with 31% neutrophils, 58% lymphocytes. BUN 8, creatinine 0.9, serum glucose 288. Liver enzymes are within normal limits. Troponin x3 negative. BNP less than 10. Albumin is 3.9. CLINICAL IMPRESSION AND PLAN: The patient will be under observation on telemetry for right upper quadrant pain. We will await on HIDA scan. If HIDA scan is negative, the patient likely will be going home. His right upper quadrant pain is slowly receding as well at present. We will continue his Norvasc, Lipitor, gabapentin, Lantus, DuoNeb's, Toprol-XL as before. He will be on Pepcid 20 mg IV q.12 hourly until he is kept n.p.o. Gentle hydration until the patient gets all his workup done and is cleared by General Surgery. I have spoken to Dr. Payne over telephone regarding the patient's workup, and we are waiting on HIDA scan results to proceed with surgery if needed or home if it is negative. Job ID: [id number] MTDD
--- NOTE | 2018-12-01 16:32 | NM ---
Radionucleotide hepatobiliary scan with gallbladder ejection fraction HISTORY: Cholecystitis. Abdominal pain. FINDINGS: Early images show physiologic uptake of radiotracer within the hepatic parenchyma. Gallblad lencho first imaged at 10 minutes. Uptake evident within the small bowel at 17 minutes. After administration of CCK. There is limited excretion of radiotracer from the gallbladder to the sm all bowel. Ejection fraction calculated at 18%. IMPRESSION: Biliary system is patent. Abnormal gallbladder ejection fraction, consistent with chronic gallbladder dyskinesis..
[2018-12-01] MEDS ORDERED: GABAPENTIN 1200 MG PO SCH (21:00)
[2018-12-01] MEDS ORDERED: Insulin Glargine 25 UNITS in Pre-Filled Syringe 1 EACH SC SCH (21:00)
[2018-12-01] MEDS ORDERED: Non-Formulary Item 1 EACH (Insulin Detemir 100 Units/Ml [Levemir] 25 UNIT) SC SCH (21:00)
[2018-12-01] MEDS: Gabapentin 400 MG CAP PO SCH (22:00)
[2018-12-01] MEDS: Famotidine/PF 20 mg/2ml Vial SLOW IVP SCH (22:01)
[2018-12-02] MEDS: HumaLOG 300 UNITS/3 ML VIAL SC PRN ×2 (05:14→17:31)
[2018-12-02 05:31] LABS: Band 2 % (5-11); Hemoglobin 12.4 g/dL (14.0-18.0); Lymphocytes 51 % (21-51); MDiff Complete? YES; Mean Corpuscular HGB CONC 32.6 g/dL (32.0-36.0); Mean Corpuscular Hemoglobin 28.2 pg (27.0-31.0); Mean Corpuscular Volume 86.5 fL (78.0-98.0); Mean Platelet Volume 7.7 fL (7.4-10.4); Monocytes 4 % (0-10); Neutrophil 43 % (42-75); Platelet Count 218 thou/uL (130-400); RBC Distribution Width 12.9 % (11.5-14.5); Red Blood Cell (RBC) Count 4.41 mill/uL (4.70-6.10); White Blood Cell (WBC) Count 4.8 thou/uL (4.8-10.8)
[2018-12-02] MEDS: Atorvastatin Calcium 40 MG TAB PO SCH (10:16)
[2018-12-02] MEDS: Amlodipine 10 MG TAB PO SCH (10:16)
[2018-12-02] MEDS: Famotidine/PF 20 mg/2ml Vial SLOW IVP SCH ×2 (10:16→20:24)
[2018-12-02] MEDS: Sodium Chloride 0.9% 1,000 ML IV SCH ×2 (10:17→20:24)
[2018-12-02] MEDS: Gabapentin 400 MG CAP PO SCH ×2 (10:17→20:23)
[2018-12-02] MEDS: Insulin Glargine 10 UNITS in Pre-Filled Syringe 1 EACH SC SCH (13:26)
[2018-12-02] MEDS: Glimepiride 2 MG TAB PO SCH (13:26)
[2018-12-02] MEDS: Nicotine 14 MG PATCH TD SCH (13:51)
[2018-12-02] MEDS ORDERED: Magnesium Citrate 300 ML BOT PO SCH (15:15)
--- NOTE | 2018-12-02 15:38 | CON ---
DATE OF CONSULTATION: HISTORY OF PRESENT ILLNESS: Shin Mercado is a 62-year-old black male who I am seeing at the request of the hospitalist for the patient's admission complaint of right upper quadrant pain. The patient complains of intermittent pain in his right upper quadrant of about 2 days duration. He did not have this pain previously. He does complain of some right flank component. He has not had any nausea or vomiting. He has had a previous stroke and is weak on his right side and is nonambulatory. Independently, he does use a walker and his family helps him at home with his activities. He continues to smoke a pack a day. He had a myocardial infarction 8 years ago in [place] and reports having at least 2 coronary stents placed. He has not seen a bio medical technician or had any followup or stress testing since that time. On 1 occasion, he underwent a bowel prep in preparation for a colonoscopy, but apparently there was some n.p.o. issues and never had that procedure performed. In the hospital, the patient was admitted and noted to have normal liver function tests and normal white count. He underwent CTA, which is unremarkable suggesting some nephrocalcinosis, possibly his calcium level is normal. He underwent ultrasound of the gallbladder, which was unremarkable. He had HIDA scan ejection fraction revealed an 18% gallbladder ejection fraction. His gallbladder did fill. There was no evidence of acute cholecystitis. Followup CT scan of the abdomen and pelvis was unremarkable. He was noted to have mild to moderate constipation. The patient reports that his pain present on admission is somewhat improved, although not resolved by this time. He describes pain in his right subcostal area and anterior axillary line. ALLERGIES: NONE. SOCIAL HISTORY: Tobacco, 1 pack per day. Alcohol, none. MEDICATIONS: At home, glimepiride, Tessalon, Lipitor, Norvasc, DuoNeb, Levemir, Medrol Dosepak, Xarelto, Nicoderm, Mucinex, Aeroneb, metoprolol, losartan, hydrochlorothiazide, gabapentin, and albuterol inhaler. PAST SURGICAL HISTORY: Lumbar surgery, appendectomy, and coronary stenting. PAST MEDICAL HISTORY: Diabetes mellitus, hypertension, tobacco abuse, history of stroke with right hemiparesis involving his upper and lower extremity. He is nonambulatory except with the aid of a walker. He requires the help of family for daily activities. History of coronary artery disease with myocardial infarction in [place] 7-8 years ago requiring coronary stenting. No followup since that time. REVIEW OF SYSTEMS: [place] otherwise noncontributory. PHYSICAL EXAMINATION: VITAL SIGNS: Height 5 feet six inches, weight 209 pounds, 33 BMI. HEAD, EARS, EYES, NOSE AND THROAT: Unremarkable. LUNGS: No wheezing. CARDIAC: Regular rate and rhythm without murmur or gallop. ABDOMEN: Soft, nontender. Minimal tenderness in his right lateral abdomen anterior axillary line. EXTREMITIES: Right hemiparesis, upper extremity more than lower. NEURO: Alert and oriented x3. LABORATORY DATA: BUN 8, creatinine 0.94. Liver function tests are normal. Lipase is normal. White count 4, hemoglobin 12. ASSESSMENT/PLAN: 1. Biliary dyskinesia. He has not had symptoms prior to this. His tenderness is limited to his right lateral subcostal area anterior axillary line. His symptoms could be consistent with biliary dyskinesia, and laparoscopic cholecystectomy could be performed. I would not subject the patient to a general anesthetic with his known coronary artery disease, ongoing tobacco abuse and other risk factors of hypertension and diabetes without coronary evaluation. We will obtain a cardiac stress test and echocardiogram and if his pain persists tomorrow, could consider laparoscopic cholecystectomy tomorrow and have rescheduled that for tomorrow pending his decision and outcome of the stress test. If, however, his pain is improved and resolved, we could observe that. There is nothing life-threatening about his biliary dyskinesia. We will await the cardiac stress test results. The cardiac stress test nuclear medicine cannot be performed today since he had his HIDA scan yesterday and stress test will therefore have to be performed tomorrow because of radioactive nuclear pharmaceutical half-life. 2. Diabetes mellitus. 3. Hypertension. 4. History of stroke. 5. History of coronary artery disease. 6. Ongoing tobacco abuse. 7. In need of future colonoscopy, not anemic, asymptomatic, but needs a screening colonoscopy at some point. 8. Encouraged tobacco cessation. Job ID: [id number]
--- NOTE | 2018-12-02 18:16 | PDOC.HOSPP ---
- Subjective Subjective: Mr. Mercado was seen today in follow-up of Abdominal pain.. He was seen at approximately 11:45AM He says the pain has improved some. He is anxiously awaiting surgery. - Objective Vital Signs & Weight: Vital Signs (12 hours) Temp Pulse Pulse Pulse Resp BP BP 12/02/18 15:48 97.8 F 77 20 12/02/18 11:38 97.5 F L 78 18 12/02/18 09:35 77 77 136/85 162/83 H 12/02/18 08:00 97.3 F L 74 18 BP Pulse Ox 12/02/18 15:48 123/76 93 L 12/02/18 11:38 159/87 H 95 12/02/18 09:35 12/02/18 08:00 127/80 94 L Weight Admit Weight 209 lb 8 oz Weight 209 lb 14.4 oz I&O: 12/01/18 12/02/18 12/03/18 06:59 06:59 06:59 Intake Total 1606 Output Total 350 860 Balance -350 746 Result Diagrams: 12/02/18 04:41 12/01/18 12:21 Additional Labs: Accuchecks 12/02/18 12/02/18 12/02/18 16:57 10:45 05:05 POC Glucose 301 H 159 H 300 H 12/01/18 22:04 POC Glucose 312 H ROS - Review of Systems All systems: All other ROS were reviewed and found negative. - Medication Medications: Active Medications Generic Name Dose Route Start Last Admin Trade Name Freq PRN Reason Stop Dose Admin Acetaminophen 650 mg 12/01/18 10:14 12/01/18 22:00 Tylenol PO 650 mg Q4H PRN Administration Headache/Fever/Mild Pain (1-3) Amlodipine Besylate 10 mg 12/02/18 09:00 12/02/18 10:16 Norvasc PO 10 mg DAILY ARTHUR Administration Atorvastatin Calcium 40 mg 12/02/18 09:00 12/02/18 10:16 Lipitor PO 40 mg DAILY ARTHUR Administration Famotidine 20 mg 12/01/18 21:00 12/02/18 10:16 Pepcid SLOW IVP 20 mg Q12HR ARTHUR Administration Gabapentin 1,200 mg 12/01/18 21:00 12/02/18 10:17 Neurontin PO 1,200 mg BID ARTHUR Administration Glimepiride 2 mg 12/02/18 08:00 12/02/18 13:26 Amaryl PO Not Given QAM-WM ARTHUR Insulin Glargine 25 units/ 0.25 mls @ 0 mls/hr 12/01/18 21:00 12/02/18 01:00 Miscellaneous Medication SC Not Given HS ARTHUR Sodium Chloride 1,000 mls @ 100 mls/hr 12/02/18 07:45 12/02/18 10:17 Normal Saline 0.9% IV 1,000 mls .Q10H ARTHUR Administration Insulin Glargine 10 units/ 0.1 mls @ 0 mls/hr 12/02/18 09:00 12/02/18 13:26 Miscellaneous Medication SC Not Given QAM ARTHUR Insulin Human Lispro 0 units 12/01/18 10:14 12/02/18 17:31 Humalog SC 8 unit .MODERATE SLIDING SC PRN Administration Moderate Correctional Scale Insulin Human Lispro 0 units 12/01/18 10:14 12/01/18 22:32 Humalog SC 4 unit .BEDTIME SLIDING SC PRN Administration Bedtime Correctional Scale Metoprolol Succinate 50 mg 12/02/18 09:00 12/02/18 10:16 Toprol Xl PO 50 mg DAILY ARTHUR Administration Nicotine 14 mg 12/02/18 14:00 12/02/18 13:51 Nicoderm Patch TD 14 mg Q24HR ARTHUR Administration Sodium Chloride 10 ml 12/01/18 21:00 12/02/18 10:18 Flush - Normal Saline IVF 10 ml Q12HR ARTHUR Administration - Exam Eye: PERRL, anicteric sclera ENT: normocephalic atraumatic, no oropharyngeal lesions, moist mucosa Heart: RRR, no murmur, no gallops, no rubs, normal peripheral pulses Respiratory: CTAB, no wheezes, no rales, no ronchi, normal chest expansion Gastrointestinal: soft, non-tender, non-distended, normal bowel sounds, no palpable masses, no hepatomegaly, no splenomegaly Extremities: 1+ LE edema Hosp A/P (1) Biliary colic Code(s): K80.50 - CALCULUS OF BILE DUCT W/O CHOLANGITIS OR CHOLECYST W/O OBST Status: Acute (2) Hyperlipidemia Code(s): E78.5 - HYPERLIPIDEMIA, UNSPECIFIED Status: Chronic (3) Hypertension Code(s): I10 - ESSENTIAL (PRIMARY) HYPERTENSION Status: Chronic (4) Tobacco abuse Code(s): Z72.0 - TOBACCO USE Status: Chronic (5) Type II diabetes mellitus Status: Chronic Qualifiers: Diabetes mellitus complication status: with hyperglycemia - Plan * Biliary Colic- his HIDA scan demonstrated a low EF. Surgery has been consulted * When discussing plans for surgery, He denies any symptoms of heart failure, nor has he had a recent SC. He admits to some dyspnea on exertion, and poor exercise tolerance ( however this is affected by his previous stroke). * HTN- blood pressure is stable * Tobacco Abuse- discussed- will add a nicotine patch * DM- blood glucose is a bit labile- will continue Lantus and SSI, and will titrate as needed
[2018-12-02] MEDS: Polyethylene Glycol 3350 17 GM Packet PO SCH (20:25)
[2018-12-02] MEDS: Insulin Glargine 30 UNITS in Pre-Filled Syringe 1 EACH SC SCH (21:39)
[2018-12-02] MEDS: Morphine 2 MG/ML SYRINGE SLOW IVP PRN (23:15)
[2018-12-03] MEDS: Sodium Chloride 0.9% 1,000 ML IV SCH ×2 (03:48→15:19)
[2018-12-03] MEDS: Morphine 2 MG/ML SYRINGE SLOW IVP PRN (05:27)
[2018-12-03] MEDS: Amlodipine 10 MG TAB PO SCH (09:51)
[2018-12-03] MEDS: Famotidine/PF 20 mg/2ml Vial SLOW IVP SCH (09:52)
[2018-12-03] MEDS: Atorvastatin Calcium 40 MG TAB PO SCH (09:52)
[2018-12-03] MEDS: Gabapentin 400 MG CAP PO SCH ×2 (09:52→20:29)
[2018-12-03] MEDS: Glimepiride 2 MG TAB PO SCH (10:46)
[2018-12-03] MEDS: Insulin Glargine 10 UNITS in Pre-Filled Syringe 1 EACH SC SCH (10:46)
[2018-12-03] MEDS: Polyethylene Glycol 3350 17 GM Packet PO SCH ×2 (10:47→20:29)
--- NOTE | 2018-12-03 11:59 | NM ---
EXAM: CARDIAC SPECT HISTORY: Preoperative clearance. Coronary artery disease, stent, diabetes, CVA, myocardial infarction TECHNIQUE: A myocardial perfusion scan was performed using the single isotope 1 day protocol with carmen hnetium 99m sestamibi. [10 mCi] was injected intravenously for the rest exam followed by 30 mCi for the stress study. Pharmacologic stress with adenosine was monitored and interpreted by Dr. Curry FINDINGS: Homogeneous tracer distribution is seen in the myocardial segments on stress and rest image s without fixed or reversible defects. Gated SPECT LVEF: 44% Wall motion exam: Global hypokinesis IMPRESSION: No evidence of reversible ischemia
[2018-12-03] MEDS ORDERED: Ondansetron PF 4 MG/2 ML Vial ONE (13:02)
[2018-12-03] MEDS ORDERED: Rocuronium Bromide 10 MG/ML (10ML VIAL) ONE (13:02)
[2018-12-03] MEDS ORDERED: Lidocaine 1% PF 5 ML VIAL ONE (13:02)
[2018-12-03] MEDS ORDERED: Glycopyrrolate 0.2 MG/ML 5 ML SYRINGE ONE (13:02)
[2018-12-03] MEDS ORDERED: ADENOSINE 60 MG/20 ML VIAL ONE (13:29)
[2018-12-03] MEDS ORDERED: Bupivacaine/Epinephrine 0.25% 30 ML VIAL ONE (13:59)
[2018-12-03] MEDS ORDERED: Iothalamate Meglumine 60% 50 ML VIAL FS ONE ×2 (13:59→15:34)
[2018-12-03] MEDS ORDERED: ceFAZolin Sodium (SDC) 2 GM/100 ML BAG ONE (14:26)
--- NOTE | 2018-12-03 14:34 | PRG ---
DATE OF SERVICE: 12/03/2018 Shin Mercado continues to have pain in his right abdomen. His HIDA scan revealed abnormal ejection fraction. Due to coronary stents placed 12 years ago in [place] with ongoing tobacco abuse and diagnosis of diabetes and hypertension and occurrence of previous stroke, please note he is asymptomatic from cardiac standpoint. The patient has undergone echocardiogram yesterday, read by Dr. Cortez revealing ejection fraction of 60%, trace mitral regurg, trace tricuspid regurg. Stress nuclear cardiac test obtained today revealed no reversible ischemia. Ejection fraction on the stress test was 40%. He was noted to have some global hypokinesis, but there were no fixed or reversible defects. I have given the patient option of following the pain and told him he does not have to have his gallbladder out, but in the hope that he will relieve his pain. He was admitted for and since he has abnormal ejection fraction, gallbladder on HIDA scan. We will plan laparoscopic cholecystectomy. He wishes to proceed. I have recommended to him that he stop smoking. I have recommended that he see Dr. Sky Abad as an outpatient to assume his coronary care and that he find a local primary care doctor. I have also recommended that he seek a colonoscopy screening as an outpatient due to his ongoing constipation. He was given magnesium citrate 2 days ago without a bowel movement. We will proceed with laparoscopic video cholecystectomy today. He can be discharged home or transferred to rehab as appropriate. Risks and benefits discussed, questions answered. Job ID: [id number]
[2018-12-03] MEDS: Nicotine 14 MG PATCH TD SCH (15:10)
[2018-12-03] MEDS ORDERED: Bupivacaine HCl 0.5%/Epinephrine 1:200,000/PF 30 ml Vial ONE (15:34)
[2018-12-03] MEDS ORDERED: Acetaminophen 500 MG TAB PO PRN (16:17)
[2018-12-03] MEDS ORDERED: traMADol HCl 50 MG TAB PO PRN ×2 (16:17)
[2018-12-03] MEDS ORDERED: Fentanyl 100 MCG/2 ML VIAL ONE ×2 (16:25→18:45)
[2018-12-03] MEDS ORDERED: Phenylephrine HCL 10 MG/ML VIAL ONE (16:26)
[2018-12-03] MEDS ORDERED: Magnesium Citrate 300 ML BOT PO SCH (16:30)
[2018-12-03] MEDS ORDERED: Morphine Sulfate 2 MG/ML SYRINGE SLOW IVP PRN (17:10)
[2018-12-03] MEDS ORDERED: Promethazine HCl 25 MG/ML VIAL SLOW IVP PRN (17:10)
[2018-12-03] MEDS ORDERED: Promethazine HCl 25 MG/ML VIAL IM PRN (17:10)
[2018-12-03] MEDS ORDERED: hydrALAZINE 20 MG/ML VIAL ONE (17:51)
--- NOTE | 2018-12-03 19:36 | OP ---
DATE OF PROCEDURE: 12/03/2018 PREOPERATIVE DIAGNOSES: Chronic cholecystitis, biliary dyskinesia. POSTOPERATIVE DIAGNOSIS: Chronic cholecystitis, biliary dyskinesia. PROCEDURE PERFORMED: Laparoscopic video cholecystectomy (could not thread the cholangiocatheter, cholangiogram and indication as there were no gallstones. Bile duct was upper limits of normal without intrahepatic ductal dilatations). ANESTHESIA: General, local 0.5% Marcaine with epinephrine 30 mL. DESCRIPTION OF PROCEDURE: The patient was taken to the operating room. Under general anesthesia, abdomen was clipped of hair, prepared with ChloraPrep and draped in routine fashion. Local anesthetic 0.5% Marcaine with epinephrine was infiltrated in the skin and subcutaneous tissue about each port site. Infraumbilical incision was made, pneumoperitoneum to 15 mmHg was obtained with a Veress needle, replaced with a 5 port, and video laparoscope was inserted. Right subxiphoid incision was made and 11 port placed, right subcostal incision was made at midclavicular entrance line and 5 port was placed. The fundus of the gallbladder was grasped at cephalad. Infundibulum was grasped and reflected laterally. Cystic artery and duct dissected free. Critical view obtained. Cystic artery doubly clipped proximally and cystic duct singly clipped on the gallbladder side. Opening was made in the cystic duct. I attempted to place a cholangiocatheter, but it would not thread after multiple attempts and one attempt at cholangiography with extravasation of contrast the cholangiocatheter was removed. Cystic duct stump doubly clipped. Cystic artery and duct divided. Gallbladder was dissected free from liver bed, obtaining good hemostasis prior to division of the final peritoneal attachments. Gallbladder and contents removed, submitted to Pathology. Liver appeared to be normal. Good hemostasis ensured as pneumoperitoneum irrigant evacuated. All instruments were removed, and all skin incisions were approximated with interrupted subdermal 4-0 Monocryl and [place] glue applied. Job ID: [id number]
[2018-12-03] MEDS: Insulin Glargine 30 UNITS in Pre-Filled Syringe 1 EACH SC SCH (21:20)
[2018-12-03] MEDS: Enoxaparin Sodium 40 MG/0.4 ML SYRINGE SC SCH (21:20)
[2018-12-04 04:59] LABS: #Lymphocytes 1.3 thou/uL (1.20-3.40); #Monocytes 0.4 thou/uL (0.11-0.59); #Neutrophils 7.1 thou/uL (1.40-6.50); %Basophils 0.1 % (0.0-1.0); %Eosinophils 0.1 % (0.0-10.0); %Lymphocytes 14.7 % (21.0-51.0); %Monocytes 4.6 % (0.0-10.0); %Neutrophils 80.5 % (42.0-75.0); Hemoglobin 13.3 g/dL (14.0-18.0); Mean Corpuscular Volume 84.9 fL (78.0-98.0); Mean Platelet Volume 7.8 fL (7.4-10.4); Platelet Count 240 thou/uL (130-400); Red Blood Cell (RBC) Count 4.77 mill/uL (4.70-6.10); White Blood Cell (WBC) Count 8.8 thou/uL (4.8-10.8)
[2018-12-04 05:20] LABS: ALT (SGPT) 37 U/L (8-55); AST (SGOT) 49 U/L (5-34); Albumin 3.6 g/dL (3.4-4.8); Alkaline Phosphatase 78 U/L (40-150); Anion Gap 10 mmol/L (10-20); BUN (Urea Nitrogen) 6 mg/dL (8.4-25.7); Bilirubin, Total 0.5 mg/dL (0.2-1.2); Calc. Creatinine Clearance 126 mL/min (70-130); Carbon Dioxide 25 mmol/L (23-31); Chloride 107 mmol/L (98-107); Estimated GFR-MDRD Greater than 90; Globulin 2.9 g/dL (2.4-3.5); Glucose 140 mg/dL (80-115); Potassium 3.6 mmol/L (3.5-5.1); Protein, Total 6.5 g/dL (5.8-8.1); Sodium 138 mmol/L (136-145)
[2018-12-04 06:01] VITALS: BMI 32.9
[2018-12-04] MEDS: Insulin Glargine 10 UNITS in Pre-Filled Syringe 1 EACH SC SCH (08:54)
[2018-12-04] MEDS: Atorvastatin Calcium 40 MG TAB PO SCH (08:55)
[2018-12-04] MEDS: Glimepiride 2 MG TAB PO SCH (08:55)
[2018-12-04] MEDS: Gabapentin 400 MG CAP PO SCH ×2 (08:55→21:48)
[2018-12-04] MEDS: Amlodipine 10 MG TAB PO SCH (08:56)
[2018-12-04] MEDS: Polyethylene Glycol 3350 17 GM Packet PO SCH ×2 (08:56→21:48)
[2018-12-04] MEDS: Nicotine 14 MG PATCH TD SCH (12:20)
--- NOTE | 2018-12-04 17:59 | PDOC.HOSPP ---
- Subjective Encounter Date: 12/04/18 Encounter Time: 11:00 Subjective: Mr. Mercado was seen today in follow-up of cholecystitis. He is post Lap real, and does not have any complaints. He notes some abdominal soreness. - Objective Vital Signs & Weight: Vital Signs (12 hours) Temp Pulse Pulse Pulse Resp BP BP 12/04/18 11:11 88 87 114/75 102/59 L 12/04/18 10:02 88 93/58 L 12/04/18 08:47 98.3 F 92 19 BP Pulse Ox 12/04/18 11:11 12/04/18 10:02 12/04/18 08:47 101/55 L 95 Weight Admit Weight 209 lb 8 oz Weight 204 lb 3.2 oz I&O: 12/03/18 12/04/18 12/05/18 06:59 06:59 06:59 Intake Total 2794 250 Output Total 500 400 Balance 2294 -150 Result Diagrams: 12/04/18 04:17 12/04/18 04:17 Additional Labs: Accuchecks 12/04/18 12/04/18 12/04/18 16:47 11:08 05:42 POC Glucose 146 H 143 H 124 H 12/03/18 12/03/18 20:40 19:32 POC Glucose 186 H 238 H ROS - Medication Medications: Active Medications Generic Name Dose Route Start Last Admin Trade Name Freq PRN Reason Stop Dose Admin Amlodipine Besylate 10 mg 12/02/18 09:00 12/04/18 08:56 Norvasc PO Not Given DAILY ARTHUR Atorvastatin Calcium 40 mg 12/02/18 09:00 12/04/18 08:55 Lipitor PO 40 mg DAILY ARTHUR Administration Enoxaparin Sodium 40 mg 12/03/18 21:00 12/03/18 21:20 Lovenox SC 40 mg 2100 ARTHUR Administration Gabapentin 1,200 mg 12/01/18 21:00 12/04/18 08:55 Neurontin PO 1,200 mg BID ARTHUR Administration Glimepiride 2 mg 12/02/18 08:00 12/04/18 08:55 Amaryl PO 2 mg QAM-WM ARTHUR Administration Insulin Glargine 10 units/ 0.1 mls @ 0 mls/hr 12/02/18 09:00 12/04/18 08:54 Miscellaneous Medication SC 0.1 mls QAM ARTHUR Administration Insulin Glargine 30 units/ 0.3 mls @ 0 mls/hr 12/02/18 21:00 12/03/18 21:20 Miscellaneous Medication SC 0.3 mls HS ARTHUR Administration Insulin Human Lispro 0 units 12/01/18 10:14 12/02/18 17:31 Humalog SC 8 unit .MODERATE SLIDING SC PRN Administration Moderate Correctional Scale Insulin Human Lispro 0 units 12/01/18 10:14 12/01/18 22:32 Humalog SC 4 unit .BEDTIME SLIDING SC PRN Administration Bedtime Correctional Scale Metoprolol Succinate 50 mg 12/02/18 09:00 12/04/18 08:56 Toprol Xl PO Not Given DAILY [facility] Morphine Sulfate 2 mg 12/02/18 22:57 12/03/18 05:27 Morphine SLOW IVP 2 mg Q4H PRN Administration Moderate to Severe Pain (4-10) Nicotine 14 mg 12/04/18 12:00 12/04/18 12:20 Nicoderm Patch TD 14 mg 1200 ARTHUR Administration Polyethylene Glycol 17 gm 12/02/18 21:00 12/04/18 08:56 Miralax PO Not Given BID ARTHUR Sodium Chloride 10 ml 12/01/18 21:00 12/04/18 08:56 Flush - Normal Saline IVF 10 ml Q12HR ARTHUR Administration - Exam Eye: PERRL, anicteric sclera Heart: RRR, no murmur, no gallops, no rubs, normal peripheral pulses Respiratory: CTAB, no wheezes, no rales, no ronchi, normal chest expansion Gastrointestinal: soft, non-tender, non-distended, normal bowel sounds, no palpable masses, no hepatomegaly Extremities: no cyanosis, no clubbing, no edema Neurological: no new deficit (+ weakness on the left side) Hosp A/P (1) Biliary colic Code(s): K80.50 - CALCULUS OF BILE DUCT W/O CHOLANGITIS OR CHOLECYST W/O OBST Status: Acute (2) Hyperlipidemia Code(s): E78.5 - HYPERLIPIDEMIA, UNSPECIFIED Status: Chronic (3) Hypertension Code(s): I10 - ESSENTIAL (PRIMARY) HYPERTENSION Status: Chronic (4) Tobacco abuse Code(s): Z72.0 - TOBACCO USE Status: Chronic (5) Type II diabetes mellitus Status: Chronic Qualifiers: Diabetes mellitus complication status: with hyperglycemia - Plan * Biliary Colic- with Chronic cholecystitis- he is post lap-real, and tolerating a solid diet * HTN- blood pressure is stable * DM- blood glucose is stable * Tobacco abuse- continue the nicotine patch * Balance difficulty following a prior CVA- plan is for Rehab placement
--- NOTE | 2018-12-04 20:15 | PRG ---
DATE OF SERVICE: 12/04/2018 Shin Mercado is doing well today. His right upper quadrant pain present prior to cholecystectomy has resolved postoperatively. He is not having complaints. He is tolerating his diet. His abdomen is soft, nontender. Surgical wounds look good. Liver function test and hemoglobin are normal. At this point, I will see him as needed. He can follow up with me on an as needed basis. I will see him as needed in this hospitalization, please call if necessary. Job ID: [id number]
[2018-12-04] MEDS: Ibuprofen 600 MG TAB PO PRN (21:48)
[2018-12-04] MEDS: Insulin Glargine 30 UNITS in Pre-Filled Syringe 1 EACH SC SCH (21:49)
[2018-12-04] MEDS: Enoxaparin Sodium 40 MG/0.4 ML SYRINGE SC SCH (21:50)
[2018-12-04] MEDS: Morphine 2 MG/ML SYRINGE SLOW IVP PRN (21:55)
[2018-12-05] MEDS: Ibuprofen 600 MG TAB PO PRN (03:42)
[2018-12-05] MEDS: Morphine 2 MG/ML SYRINGE SLOW IVP PRN ×2 (03:43→20:42)
[2018-12-05] MEDS: Gabapentin 400 MG CAP PO SCH ×2 (10:06→20:49)
[2018-12-05] MEDS: Insulin Glargine 10 UNITS in Pre-Filled Syringe 1 EACH SC SCH (10:06)
[2018-12-05] MEDS: Amlodipine 10 MG TAB PO SCH (10:07)
[2018-12-05] MEDS: Atorvastatin Calcium 40 MG TAB PO SCH (10:07)
[2018-12-05] MEDS: Glimepiride 2 MG TAB PO SCH (10:07)
[2018-12-05] MEDS: Polyethylene Glycol 3350 17 GM Packet PO SCH ×2 (10:08→20:59)
[2018-12-05] MEDS: HumaLOG 300 UNITS/3 ML VIAL SC PRN (12:23)
[2018-12-05] MEDS: Nicotine 14 MG PATCH TD SCH (12:24)
--- NOTE | 2018-12-05 12:54 | PDOC.HOSPP ---
- Subjective Encounter Date: 12/05/18 Encounter Time: 11:45 Subjective: Mr. Mercado was seen today in follow-up of Cholecystitis. He does not have any complaints. He is eating well. He denies abdominal pain. - Objective Vital Signs & Weight: Vital Signs (12 hours) Temp Pulse Resp BP Pulse Ox 12/05/18 12:30 99.9 F H 70 16 133/81 97 12/05/18 10:07 90 12/05/18 07:44 99.9 F H 90 18 136/77 100 12/05/18 03:51 97.8 F 89 20 100/60 97 Weight Admit Weight 209 lb 8 oz Weight 208 lb 1 oz I&O: 12/04/18 12/05/18 12/06/18 06:59 06:59 06:59 Intake Total 250 1430 240 Output Total 400 Balance -150 1430 240 Result Diagrams: 12/04/18 04:17 12/04/18 04:17 Additional Labs: Accuchecks 12/05/18 12/05/18 12/04/18 11:16 05:20 20:39 POC Glucose 282 H 246 H 181 H 12/04/18 16:47 POC Glucose 146 H ROS - Medication Medications: Active Medications Generic Name Dose Route Start Last Admin Trade Name Freq PRN Reason Stop Dose Admin Amlodipine Besylate 10 mg 12/02/18 09:00 12/05/18 10:07 Norvasc PO 10 mg DAILY ARTHUR Administration Atorvastatin Calcium 40 mg 12/02/18 09:00 12/05/18 10:07 Lipitor PO 40 mg DAILY ARTHUR Administration Enoxaparin Sodium 40 mg 12/03/18 21:00 12/04/18 21:50 Lovenox SC 40 mg 2100 ARTHUR Administration Gabapentin 1,200 mg 12/01/18 21:00 12/05/18 10:06 Neurontin PO 1,200 mg BID ARTHUR Administration Glimepiride 2 mg 12/02/18 08:00 12/05/18 10:07 Amaryl PO 2 mg QAM-WM ARTHUR Administration Insulin Glargine 10 units/ 0.1 mls @ 0 mls/hr 12/02/18 09:00 12/05/18 10:06 Miscellaneous Medication SC 0.1 mls QAM ARTHUR Administration Insulin Glargine 30 units/ 0.3 mls @ 0 mls/hr 08/06/19 21:00 12/04/18 21:49 Miscellaneous Medication SC 0.3 mls HS ARTHUR Administration Ibuprofen 600 mg 12/03/18 16:17 12/05/18 03:42 Motrin PO 600 mg Q6H PRN Administration Pain Insulin Human Lispro 0 units 12/01/18 10:14 12/05/18 12:23 Humalog SC 6 unit .MODERATE SLIDING SC PRN Administration Moderate Correctional Scale Insulin Human Lispro 0 units 12/01/18 10:14 12/01/18 22:32 Humalog SC 4 unit .BEDTIME SLIDING SC PRN Administration Bedtime Correctional Scale Metoprolol Succinate 50 mg 12/02/18 09:00 12/05/18 10:07 Toprol Xl PO 50 mg DAILY ARTHUR Administration Morphine Sulfate 2 mg 12/02/18 22:57 12/05/18 03:43 Morphine SLOW IVP 2 mg Q4H PRN Administration Moderate to Severe Pain (4-10) Nicotine 14 mg 12/04/18 12:00 12/05/18 12:24 Nicoderm Patch TD 14 mg 1200 ARTHUR Administration Polyethylene Glycol 17 gm 12/02/18 21:00 12/05/18 10:08 Miralax PO Not Given BID ARTHUR Sodium Chloride 10 ml 12/01/18 21:00 12/05/18 10:08 Flush - Normal Saline IVF 10 ml Q12HR ARTHUR Administration Tramadol HCl 100 mg 12/03/18 16:17 12/04/18 22:27 Ultram PO 100 mg Q6H PRN Administration Severe Pain (7-10) - Exam Eye: PERRL, anicteric sclera Heart: RRR, no murmur, no gallops, no rubs, normal peripheral pulses Respiratory: CTAB, no wheezes, no rales, no ronchi, normal chest expansion Gastrointestinal: soft, non-tender, non-distended, normal bowel sounds Extremities: no edema Neurological: no new deficit (+ residual right sided weakness) Hosp A/P (1) Biliary colic Code(s): K80.50 - CALCULUS OF BILE DUCT W/O CHOLANGITIS OR CHOLECYST W/O OBST Status: Acute (2) Hyperlipidemia Code(s): E78.5 - HYPERLIPIDEMIA, UNSPECIFIED Status: Chronic (3) Hypertension Code(s): I10 - ESSENTIAL (PRIMARY) HYPERTENSION Status: Chronic (4) Tobacco abuse Code(s): Z72.0 - TOBACCO USE Status: Chronic (5) Type II diabetes mellitus Status: Chronic Qualifiers: Diabetes mellitus complication status: with hyperglycemia - Plan * Cholecystitis- he is post lap-real, and tolerating a solid diet * HTN- blood pressure is stable * DM- blood glucose is stable * Tobacco abuse- continue the nicotine patch and continue daily brief counseling * Awaiting Rehab placement
[2018-12-05] MEDS: Enoxaparin Sodium 40 MG/0.4 ML SYRINGE SC SCH (20:49)
[2018-12-05] MEDS: Insulin Glargine 30 UNITS in Pre-Filled Syringe 1 EACH SC SCH (20:50)
[2018-12-06] MEDS: Morphine 2 MG/ML SYRINGE SLOW IVP PRN ×3 (03:56→21:22)
[2018-12-06] MEDS: Insulin Glargine 10 UNITS in Pre-Filled Syringe 1 EACH SC SCH (08:49)
[2018-12-06] MEDS: Gabapentin 400 MG CAP PO SCH ×2 (08:50→20:21)
[2018-12-06] MEDS: Glimepiride 2 MG TAB PO SCH (08:51)
[2018-12-06] MEDS: Atorvastatin Calcium 40 MG TAB PO SCH (08:51)
[2018-12-06] MEDS: Amlodipine 10 MG TAB PO SCH (08:51)
[2018-12-06] MEDS: Polyethylene Glycol 3350 17 GM Packet PO SCH ×2 (08:52→20:21)
[2018-12-06] MEDS: Nicotine 14 MG PATCH TD SCH ×2 (12:25→12:26)
--- NOTE | 2018-12-06 18:22 | PDOC.HOSPP ---
- Subjective Encounter Date: 12/06/18 Encounter Time: 11:00 Subjective: Mr. Mercado was seen today in follow-up of Cholecystitis. He does not have any new complaints. He has been tolerating an oral diet well. - Objective Vital Signs & Weight: Vital Signs (12 hours) Temp Pulse Resp BP BP Pulse Ox 12/06/18 17:35 98.9 F 90 20 112/61 94 L 12/06/18 12:21 98.1 F 80 20 142/81 H 100 12/06/18 08:51 92 12/06/18 08:47 99.4 F 92 18 123/65 98 Weight Admit Weight 209 lb 8 oz Weight 202 lb 8 oz I&O: 12/05/18 12/06/18 12/07/18 06:59 06:59 06:59 Intake Total 1430 1730 480 Output Total 1275 Balance 1430 455 480 Result Diagrams: 12/04/18 04:17 12/04/18 04:17 Additional Labs: Accuchecks 12/06/18 12/06/18 12/06/18 16:52 11:08 05:13 POC Glucose 145 H 131 H 164 H 12/05/18 20:32 POC Glucose 146 H ROS - Medication Medications: Active Medications Generic Name Dose Route Start Last Admin Trade Name Freq PRN Reason Stop Dose Admin Amlodipine Besylate 10 mg 12/02/18 09:00 12/06/18 08:51 Norvasc PO 10 mg DAILY ARTHUR Administration Atorvastatin Calcium 40 mg 12/02/18 09:00 12/06/18 08:51 Lipitor PO 40 mg DAILY ARTHUR Administration Enoxaparin Sodium 40 mg 12/03/18 21:00 12/05/18 20:49 Lovenox SC 40 mg 2100 ARTHUR Administration Gabapentin 1,200 mg 12/01/18 21:00 12/06/18 08:50 Neurontin PO 1,200 mg BID ARTHUR Administration Glimepiride 2 mg 12/02/18 08:00 12/06/18 08:51 Amaryl PO 2 mg QAM-WM ARTHUR Administration Insulin Glargine 10 units/ 0.1 mls @ 0 mls/hr 12/02/18 09:00 12/06/18 08:49 Miscellaneous Medication SC 0.1 mls QAM ARTHUR Administration Insulin Glargine 30 units/ 0.3 mls @ 0 mls/hr 12/02/18 21:00 12/05/18 20:50 Miscellaneous Medication SC 0.3 mls HS ARTHUR Administration Ibuprofen 600 mg 12/03/18 16:17 12/05/18 03:42 Motrin PO 600 mg Q6H PRN Administration Pain Insulin Human Lispro 0 units 12/01/18 10:14 12/05/18 12:23 Humalog SC 6 unit .MODERATE SLIDING SC PRN Administration Moderate Correctional Scale Insulin Human Lispro 0 units 12/01/18 10:14 12/01/18 22:32 Humalog SC 4 unit .BEDTIME SLIDING SC PRN Administration Bedtime Correctional Scale Metoprolol Succinate 50 mg 12/02/18 09:00 12/06/18 08:51 Toprol Xl PO 50 mg DAILY ARTHUR Administration Morphine Sulfate 2 mg 12/02/18 22:57 12/06/18 12:25 Morphine SLOW IVP 2 mg Q4H PRN Administration Moderate to Severe Pain (4-10) Nicotine 14 mg 12/06/18 12:00 12/06/18 12:25 Nicoderm Patch TD 14 mg 1200 ARTHUR Administration Polyethylene Glycol 17 gm 12/02/18 21:00 12/06/18 08:52 Miralax PO Not Given BID ARTHUR Sodium Chloride 10 ml 12/01/18 21:00 12/06/18 08:52 Flush - Normal Saline IVF 10 ml Q12HR ARTHUR Administration Tramadol HCl 100 mg 12/03/18 16:17 12/04/18 22:27 Ultram PO 100 mg Q6H PRN Administration Severe Pain (7-10) - Exam Eye: PERRL, anicteric sclera Heart: RRR, no murmur, no gallops, no rubs, normal peripheral pulses Respiratory: CTAB, no wheezes, no rales, no ronchi, normal chest expansion, no tachypnea, normal percussion Gastrointestinal: soft, non-distended, normal bowel sounds, tender to palpation (Mild mid- to right upper quadrant tenderness , no rebound or gaurding) Extremities: no cyanosis, no clubbing, no edema Hosp A/P (1) Biliary colic Code(s): K80.50 - CALCULUS OF BILE DUCT W/O CHOLANGITIS OR CHOLECYST W/O OBST Status: Acute (2) Hyperlipidemia Code(s): E78.5 - HYPERLIPIDEMIA, UNSPECIFIED Status: Chronic (3) Hypertension Code(s): I10 - ESSENTIAL (PRIMARY) HYPERTENSION Status: Chronic (4) Tobacco abuse Code(s): Z72.0 - TOBACCO USE Status: Chronic (5) Type II diabetes mellitus Status: Chronic Qualifiers: Diabetes mellitus complication status: with hyperglycemia - Plan * Cholecystitis- he is post lap real, clinically stable * HTN- blood pressure is stable * DM- blood glucose is stable * Prior CVA with right sided weakness, and poor balance- continue PT/OT * Tobacco abuse- continue the nicotine patch * Awaiting Rehab placement
[2018-12-06] MEDS: Enoxaparin Sodium 40 MG/0.4 ML SYRINGE SC SCH (20:20)
[2018-12-06] MEDS: Insulin Glargine 30 UNITS in Pre-Filled Syringe 1 EACH SC SCH (21:21)
[2018-12-07] MEDS: Glimepiride 2 MG TAB PO SCH (08:47)
[2018-12-07] MEDS: Gabapentin 400 MG CAP PO SCH ×2 (08:47→20:10)
[2018-12-07] MEDS: Polyethylene Glycol 3350 17 GM Packet PO SCH ×2 (08:48→20:11)
[2018-12-07] MEDS: Atorvastatin Calcium 40 MG TAB PO SCH (08:48)
[2018-12-07] MEDS: Amlodipine 10 MG TAB PO SCH (08:48)
[2018-12-07] MEDS: Insulin Glargine 10 UNITS in Pre-Filled Syringe 1 EACH SC SCH (08:49)
[2018-12-07] MEDS: Nicotine 14 MG PATCH TD SCH ×2 (09:05→09:06)
--- NOTE | 2018-12-07 13:27 | PDOC.HOSPP ---
- Subjective Encounter Date: 12/07/18 Encounter Time: 13:20 Subjective: f/u s/p lap cholecystectomy POD #4 with some residual abd pain. No BM since before the surgery. Tolerating po intake, no N/V/D. - Objective Vital Signs & Weight: Vital Signs (12 hours) Temp Pulse Resp BP BP Pulse Ox 12/07/18 12:00 98.4 F 81 14 129/74 93 L 12/07/18 08:48 89 12/07/18 08:43 97.6 F 89 18 119/72 96 12/07/18 03:12 99.0 F 79 19 135/78 94 L Weight Admit Weight 209 lb 8 oz Weight 203 lb 6.4 oz I&O: 12/06/18 12/07/18 12/08/18 06:59 06:59 06:59 Intake Total 1730 1630 240 Output Total 1275 650 Balance 455 980 240 Result Diagrams: 12/04/18 04:17 12/04/18 04:17 Additional Labs: Accuchecks 12/07/18 12/07/18 12/06/18 11:46 05:36 20:19 POC Glucose 203 H 203 H 192 H 12/06/18 16:52 POC Glucose 145 H EKG Reviewed by me: Yes (Tele - SR) ROS - Medication Medications: Active Medications Generic Name Dose Route Start Last Admin Trade Name Freq PRN Reason Stop Dose Admin Amlodipine Besylate 10 mg 12/02/18 09:00 12/07/18 08:48 Norvasc PO 10 mg DAILY ARTHUR Administration Atorvastatin Calcium 40 mg 12/02/18 09:00 12/07/18 08:48 Lipitor PO 40 mg DAILY ARTHUR Administration Enoxaparin Sodium 40 mg 12/03/18 21:00 12/06/18 20:20 Lovenox SC 40 mg 2100 ARTHUR Administration Gabapentin 1,200 mg 12/01/18 21:00 12/07/18 08:47 Neurontin PO 1,200 mg BID ARTHUR Administration Glimepiride 2 mg 12/02/18 08:00 12/07/18 08:47 Amaryl PO 2 mg QAM-WM ARTHUR Administration Insulin Glargine 10 units/ 0.1 mls @ 0 mls/hr 12/02/18 09:00 12/07/18 08:49 Miscellaneous Medication SC 0.1 mls QAM ARTHUR Administration Insulin Glargine 30 units/ 0.3 mls @ 0 mls/hr 12/02/18 21:00 12/06/18 21:21 Miscellaneous Medication SC 0.3 mls HS ARTHUR Administration Ibuprofen 600 mg 12/03/18 16:17 12/05/18 03:42 Motrin PO 600 mg Q6H PRN Administration Pain Insulin Human Lispro 0 units 12/01/18 10:14 12/05/18 12:23 Humalog SC 6 unit .MODERATE SLIDING SC PRN Administration Moderate Correctional Scale Insulin Human Lispro 0 units 12/01/18 10:14 12/01/18 22:32 Humalog SC 4 unit .BEDTIME SLIDING SC PRN Administration Bedtime Correctional Scale Metoprolol Succinate 50 mg 12/02/18 09:00 12/07/18 08:48 Toprol Xl PO 50 mg DAILY ARTHUR Administration Morphine Sulfate 2 mg 12/02/18 22:57 12/06/18 21:22 Morphine SLOW IVP 2 mg Q4H PRN Administration Moderate to Severe Pain (4-10) Nicotine 14 mg 12/07/18 09:00 12/07/18 09:06 Nicoderm Patch TD Not Given 0900 ARTHUR Polyethylene Glycol 17 gm 12/02/18 21:00 12/07/18 08:48 Miralax PO 17 gm BID ARTHUR Administration Sodium Chloride 10 ml 12/01/18 21:00 12/07/18 08:49 Flush - Normal Saline IVF 10 ml Q12HR ARTHUR Administration Tramadol HCl 100 mg 12/03/18 16:17 12/04/18 22:27 Ultram PO 100 mg Q6H PRN Administration Severe Pain (7-10) - Exam NAD, awake alert Eye: PERRL, anicteric sclera ENT: normocephalic atraumatic, no oropharyngeal lesions Neck: supple, symmetric, no JVD, no thyromegaly, no lymphadenopathy Heart: RRR, no murmur, no gallops, no rubs, normal peripheral pulses Respiratory: CTAB, no wheezes, no rales, no ronchi, normal chest expansion Gastrointestinal: soft, non-distended, normal bowel sounds, no palpable masses Extremities: no cyanosis, no clubbing, no edema Skin: normal turgor, no rashes Neurological: CN's grossly intact, no new deficit Neurological - other findings: RUE paralysis Musculoskeletal: normal tone Psychiatric: A&O x 3 Hosp A/P (1) Acute cholecystitis Code(s): K81.0 - ACUTE CHOLECYSTITIS Status: Acute Plan: s/p laparoscopic cholecystectomy POD #4, pain control, mobilization (2) Diabetes type 2, uncontrolled Code(s): E11.65 - TYPE 2 DIABETES MELLITUS WITH HYPERGLYCEMIA Status: Chronic Qualifiers: Glycemic state: with hyperglycemia Qualified Code(s): E11.65 - Type 2 diabetes mellitus with hyperglycemia Plan: ISS, check A1C, continue Amaryl and Lantus 10u qam, 30u qhs (3) Hypertension Code(s): I10 - ESSENTIAL (PRIMARY) HYPERTENSION Status: Chronic Qualifiers: Hypertension type: essential hypertension Qualified Code(s): I10 - Essential (primary) hypertension Plan: Stable, continue Metoprolol/Amlodipine (4) Tobacco abuse Code(s): Z72.0 - TOBACCO USE Status: Chronic Plan: Nicotine patch, smoking cessation resources - Plan PT/OT, social insurance adviser, DVT proph w/SCDs Stable currently PT/OT for mobilization Await final approval from Rehab Pain control as clinically indicated Magnesium Citrate today AM lab: A1C Likely to inpt rehab in 24h
[2018-12-07] MEDS ORDERED: Magnesium Citrate 300 ML BOT PO SCH (13:45)
[2018-12-07] MEDS: Morphine 2 MG/ML SYRINGE SLOW IVP PRN ×2 (13:55→23:44)
[2018-12-07] MEDS: HumaLOG 300 UNITS/3 ML VIAL SC PRN (13:57)
[2018-12-07] MEDS: Enoxaparin Sodium 40 MG/0.4 ML SYRINGE SC SCH (20:11)
[2018-12-07] MEDS: Insulin Glargine 30 UNITS in Pre-Filled Syringe 1 EACH SC SCH (20:16)
[2018-12-08 05:37] LABS: Hemoglobin A1c 11.3 % (4.0-6.0)
[2018-12-08] MEDS: Polyethylene Glycol 3350 17 GM Packet PO SCH ×2 (09:01→20:40)
[2018-12-08] MEDS: Gabapentin 400 MG CAP PO SCH ×2 (09:01→20:39)
[2018-12-08] MEDS: Nicotine 14 MG PATCH TD SCH (09:01)
[2018-12-08] MEDS: Atorvastatin Calcium 40 MG TAB PO SCH (09:01)
[2018-12-08] MEDS: Insulin Glargine 10 UNITS in Pre-Filled Syringe 1 EACH SC SCH (09:06)
[2018-12-08] MEDS: Glimepiride 2 MG TAB PO SCH (09:12)
[2018-12-08] MEDS: Amlodipine 10 MG TAB PO SCH (09:12)
[2018-12-08] MEDS: Senokot S 8.6-50 MG TAB PO PRN ×2 (09:17→20:39)
[2018-12-08] MEDS: Morphine 2 MG/ML SYRINGE SLOW IVP PRN (10:04)
--- NOTE | 2018-12-08 16:08 | PDOC.HOSPP ---
- Subjective Encounter Date: 12/08/18 Encounter Time: 16:00 Subjective: f/u s/p lap real POD #5. Feels ok overall. + BM and tolerating po intake. - Objective Vital Signs & Weight: Vital Signs (12 hours) Temp Pulse Pulse Resp BP BP BP 12/08/18 15:56 98.6 F 84 16 121/63 12/08/18 14:35 86 125/75 12/08/18 11:52 98.4 F 74 16 123/72 12/08/18 09:12 76 12/08/18 08:00 98.3 F 86 16 120/78 Pulse Ox 12/08/18 15:56 96 12/08/18 14:35 12/08/18 11:52 98 12/08/18 09:12 12/08/18 08:00 97 Weight Admit Weight 209 lb 8 oz Weight 205 lb I&O: 12/07/18 12/08/18 12/09/18 06:59 06:59 06:59 Intake Total 1630 1940 Output Total 650 1725 Balance 980 215 Result Diagrams: 12/04/18 04:17 12/04/18 04:17 Additional Labs: Accuchecks 12/08/18 12/08/18 12/07/18 10:52 05:58 20:18 POC Glucose 133 H 193 H 176 H 12/07/18 17:03 POC Glucose 85 EKG Reviewed by me: Yes (Tele - SR) ROS - Medication Medications: Active Medications Generic Name Dose Route Start Last Admin Trade Name Freq PRN Reason Stop Dose Admin Amlodipine Besylate 10 mg 12/02/18 09:00 12/08/18 09:12 Norvasc PO 10 mg DAILY ARTHUR Administration Atorvastatin Calcium 40 mg 12/02/18 09:00 12/08/18 09:01 Lipitor PO 40 mg DAILY ARTHUR Administration Enoxaparin Sodium 40 mg 12/03/18 21:00 12/07/18 20:11 Lovenox SC 40 mg 2100 ARTHUR Administration Gabapentin 1,200 mg 12/01/18 21:00 12/08/18 09:01 Neurontin PO 1,200 mg BID ARTHUR Administration Glimepiride 2 mg 12/02/18 08:00 12/08/18 09:12 Amaryl PO 2 mg QAM-WM ARTHUR Administration Insulin Glargine 10 units/ 0.1 mls @ 0 mls/hr 12/02/18 09:00 12/08/18 09:06 Miscellaneous Medication SC 0.1 mls QAM ARTHUR Administration Insulin Glargine 30 units/ 0.3 mls @ 0 mls/hr 12/02/18 21:00 12/07/18 20:16 Miscellaneous Medication SC 0.3 mls HS ARTHUR Administration Ibuprofen 600 mg 12/03/18 16:17 12/05/18 03:42 Motrin PO 600 mg Q6H PRN Administration Pain Insulin Human Lispro 0 units 12/01/18 10:14 12/07/18 13:57 Humalog SC 4 unit .MODERATE SLIDING SC PRN Administration Moderate Correctional Scale Insulin Human Lispro 0 units 12/01/18 10:14 12/01/18 22:32 Humalog SC 4 unit .BEDTIME SLIDING SC PRN Administration Bedtime Correctional Scale Metoprolol Succinate 50 mg 12/02/18 09:00 12/08/18 09:02 Toprol Xl PO 50 mg DAILY ARTHUR Administration Morphine Sulfate 2 mg 12/02/18 22:57 12/08/18 10:04 Morphine SLOW IVP 2 mg Q4H PRN Administration Moderate to Severe Pain (4-10) Nicotine 14 mg 12/07/18 09:00 12/08/18 09:01 Nicoderm Patch TD 14 mg 09 ARTHUR Administration Polyethylene Glycol 17 gm 12/02/18 21:00 12/08/18 09:01 Miralax PO 17 gm BID ARTHUR Administration Senna/Docusate Sodium 2 tab 12/01/18 10:14 12/08/18 09:17 Senokot S PO 2 tab BID PRN Administration Constipation Sodium Chloride 10 ml 12/01/18 21:00 12/08/18 09:12 Flush - Normal Saline IVF 10 ml Q12HR ARTHUR Administration Tramadol HCl 100 mg 12/03/18 16:17 12/04/18 22:27 Ultram PO 100 mg Q6H PRN Administration Severe Pain (7-10) - Exam NAD, awake alert Eye: PERRL, anicteric sclera ENT: normocephalic atraumatic, no oropharyngeal lesions Neck: supple, symmetric, no JVD, no thyromegaly, no lymphadenopathy Heart: RRR, no murmur, no gallops, no rubs, normal peripheral pulses Respiratory: CTAB, no wheezes, no rales, no ronchi, normal chest expansion Gastrointestinal: soft, non-tender, non-distended, normal bowel sounds, no palpable masses Extremities: no cyanosis, no edema Skin: normal turgor, no lesions Neurological: CN's grossly intact, no new deficit, hemiplegia Neurological - other findings: R hemiplegia Psychiatric: normal affect, A&O x 3 Hosp A/P (1) Acute cholecystitis Code(s): K81.0 - ACUTE CHOLECYSTITIS Status: Acute Plan: POD #5, continue supportive mgmt (2) Diabetes type 2, uncontrolled Code(s): E11.65 - TYPE 2 DIABETES MELLITUS WITH HYPERGLYCEMIA Status: Chronic Qualifiers: Glycemic state: with hyperglycemia Qualified Code(s): E11.65 - Type 2 diabetes mellitus with hyperglycemia Plan: Stable, A1C 11.3, ISS, ADA (3) Hypertension Code(s): I10 - ESSENTIAL (PRIMARY) HYPERTENSION Status: Chronic Qualifiers: Hypertension type: essential hypertension Qualified Code(s): I10 - Essential (primary) hypertension Plan: Stable, continue BP regimen (4) Tobacco abuse Code(s): Z72.0 - TOBACCO USE Status: Chronic - Plan PT/OT, social research assistant, out of bed/ambulate Stable currently PT/OT for mobilization Await final approval from Rehab Pain control as clinically indicated Magnesium Citrate today Likely to inpt rehab in 24h
[2018-12-08] MEDS: HumaLOG 300 UNITS/3 ML VIAL SC PRN (17:55)
[2018-12-08] MEDS: Enoxaparin Sodium 40 MG/0.4 ML SYRINGE SC SCH (20:40)
[2018-12-08] MEDS: Insulin Glargine 30 UNITS in Pre-Filled Syringe 1 EACH SC SCH (20:40)
[2018-12-09] MEDS ORDERED: Fleet Enema 133 ML BOT PR PRN (02:30)
[2018-12-09] MEDS: Morphine 2 MG/ML SYRINGE SLOW IVP PRN (03:00)
[2018-12-09] MEDS: Gabapentin 400 MG CAP PO SCH ×2 (09:34→22:24)
[2018-12-09] MEDS: Nicotine 14 MG PATCH TD SCH (09:34)
[2018-12-09] MEDS: Insulin Glargine 10 UNITS in Pre-Filled Syringe 1 EACH SC SCH (09:34)
[2018-12-09] MEDS: Glimepiride 2 MG TAB PO SCH (09:34)
[2018-12-09] MEDS: Amlodipine 10 MG TAB PO SCH (09:34)
[2018-12-09] MEDS: Senokot S 8.6-50 MG TAB PO SCH ×2 (09:34→22:25)
[2018-12-09] MEDS: Atorvastatin Calcium 40 MG TAB PO SCH (09:34)
[2018-12-09] MEDS: Polyethylene Glycol 3350 17 GM Packet PO SCH ×2 (09:45→22:25)
--- NOTE | 2018-12-09 19:38 | PDOC.HOSPP ---
- Subjective Encounter Date: 12/09/18 Encounter Time: 19:40 Subjective: f/u s/p laparoscopic cholecystectomy POD #6. Feels ok overall. Awaiting inpt rehab approval. - Objective Vital Signs & Weight: Vital Signs (12 hours) Temp Pulse Pulse Resp BP BP Pulse Ox 12/09/18 15:22 97.6 F 80 18 108/76 98 12/09/18 14:46 80 129/68 12/09/18 11:25 97.8 F 75 18 124/68 95 12/09/18 07:40 98.5 F 78 19 120/72 96 Weight Admit Weight 209 lb 8 oz Weight 208 lb I&O: 12/08/18 12/09/18 12/10/18 06:59 06:59 06:59 Intake Total 1940 1540 720 Output Total 1725 600 Balance 215 940 720 Result Diagrams: 12/04/18 04:17 12/04/18 04:17 Additional Labs: Accuchecks 12/09/18 12/09/18 12/09/18 17:25 11:06 05:26 POC Glucose 142 H 139 H 148 H 12/08/18 20:47 POC Glucose 168 H ROS - Medication Medications: Active Medications Generic Name Dose Route Start Last Admin Trade Name Freq PRN Reason Stop Dose Admin Amlodipine Besylate 10 mg 12/02/18 09:00 12/09/18 09:34 Norvasc PO 10 mg DAILY ARTHUR Administration Atorvastatin Calcium 40 mg 12/02/18 09:00 12/09/18 09:34 Lipitor PO 40 mg DAILY ARTHUR Administration Enoxaparin Sodium 40 mg 12/03/18 21:00 12/08/18 20:40 Lovenox SC 40 mg 2100 ARTHUR Administration Gabapentin 1,200 mg 12/01/18 21:00 12/09/18 09:34 Neurontin PO 1,200 mg BID ARTHUR Administration Glimepiride 2 mg 12/02/18 08:00 12/09/18 09:34 Amaryl PO 2 mg QAM-WM ARTHUR Administration Insulin Glargine 10 units/ 0.1 mls @ 0 mls/hr 12/02/18 09:00 12/09/18 09:34 Miscellaneous Medication SC 0.1 mls QAM ARTHUR Administration Insulin Glargine 30 units/ 0.3 mls @ 0 mls/hr 12/02/18 21:00 12/08/18 20:40 Miscellaneous Medication SC 0.3 mls HS ARTHUR Administration Ibuprofen 600 mg 12/03/18 16:17 12/05/18 03:42 Motrin PO 600 mg Q6H PRN Administration Pain Insulin Human Lispro 0 units 12/01/18 10:14 12/08/18 17:55 Humalog SC 2 unit .MODERATE SLIDING SC PRN Administration Moderate Correctional Scale Insulin Human Lispro 0 units 12/01/18 10:14 12/01/18 22:32 Humalog SC 4 unit .BEDTIME SLIDING SC PRN Administration Bedtime Correctional Scale Metoprolol Succinate 50 mg 12/02/18 09:00 12/09/18 09:34 Toprol Xl PO 50 mg DAILY ARTHUR Administration Morphine Sulfate 2 mg 12/02/18 22:57 12/09/18 03:00 Morphine SLOW IVP 2 mg Q4H PRN Administration Moderate to Severe Pain (4-10) Nicotine 14 mg 12/07/18 09:00 12/09/18 09:34 Nicoderm Patch TD 14 mg 0900 ARTHUR Administration Polyethylene Glycol 17 gm 12/02/18 21:00 12/09/18 09:45 Miralax PO Not Given BID ARTHUR Senna/Docusate Sodium 2 tab 12/01/18 10:14 12/08/18 20:39 Senokot S PO 2 tab BID PRN Administration Constipation Senna/Docusate Sodium 2 tab 12/09/18 09:00 12/09/18 09:34 Senokot S PO 2 tab BID ARTHUR Administration Sodium Chloride 10 ml 12/01/18 21:00 12/09/18 09:44 Flush - Normal Saline IVF 10 ml Q12HR ARTHUR Administration Tramadol HCl 100 mg 12/03/18 16:17 12/04/18 22:27 Ultram PO 100 mg Q6H PRN Administration Severe Pain (7-10) - Exam NAD, awake alert Eye: PERRL, anicteric sclera ENT: normocephalic atraumatic, no oropharyngeal lesions Neck: supple, symmetric, no JVD, no thyromegaly, no lymphadenopathy Heart: RRR, no murmur, no gallops, no rubs Respiratory: CTAB, no wheezes, no rales, no ronchi, normal chest expansion Gastrointestinal: soft, non-tender, non-distended, normal bowel sounds, no palpable masses Extremities: no cyanosis, no clubbing Skin: normal turgor, no lesions Neurological: no new deficit Neurological - other findings: R hemiplegia Musculoskeletal: normal tone, generalized weakness Psychiatric: normal affect, A&O x 3 Hosp A/P (1) Acute cholecystitis Code(s): K81.0 - ACUTE CHOLECYSTITIS Status: Acute Plan: s/p lap real POD #6, supportive mgmt (2) Diabetes type 2, uncontrolled Code(s): E11.65 - TYPE 2 DIABETES MELLITUS WITH HYPERGLYCEMIA Status: Chronic Qualifiers: Glycemic state: with hyperglycemia Qualified Code(s): E11.65 - Type 2 diabetes mellitus with hyperglycemia Plan: Continue Amaryl, ISS, ADA (3) Hypertension Code(s): I10 - ESSENTIAL (PRIMARY) HYPERTENSION Status: Chronic Qualifiers: Hypertension type: essential hypertension Qualified Code(s): I10 - Essential (primary) hypertension Plan: Stable, controlled (4) Tobacco abuse Code(s): Z72.0 - TOBACCO USE Status: Chronic Plan: Smoking cessation resources - Plan Stable currently PT/OT for mobilization Await final approval from Rehab Pain control as clinically indicated Likely to inpt rehab in 24h
[2018-12-09] MEDS: Enoxaparin Sodium 40 MG/0.4 ML SYRINGE SC SCH (22:24)
[2018-12-09] MEDS: Insulin Glargine 30 UNITS in Pre-Filled Syringe 1 EACH SC SCH (22:25)
[2018-12-10] MEDS: Nicotine 14 MG PATCH TD SCH (09:18)
[2018-12-10] MEDS: Gabapentin 400 MG CAP PO SCH (09:18)
[2018-12-10] MEDS: Amlodipine 10 MG TAB PO SCH (09:18)
[2018-12-10] MEDS: Polyethylene Glycol 3350 17 GM Packet PO SCH (09:19)
[2018-12-10] MEDS: Glimepiride 2 MG TAB PO SCH (09:19)
[2018-12-10] MEDS: Insulin Glargine 10 UNITS in Pre-Filled Syringe 1 EACH SC SCH (09:19)
[2018-12-10] MEDS: Senokot S 8.6-50 MG TAB PO SCH (09:20)
[2018-12-10] MEDS: Atorvastatin Calcium 40 MG TAB PO SCH (10:31)
[2018-12-10 11:42] VITALS: BP 123/73; TEMP 97.7
[2018-12-10] MEDS: HumaLOG 300 UNITS/3 ML VIAL SC PRN (12:50)
--- NOTE | 2018-12-10 13:21 | DIS ---
DATE OF ADMISSION: 12/03/2018 DATE OF DISCHARGE: 12/10/2018 PRIMARY CARE PHYSICIAN: [facility] Call admission. DISCHARGE DISPOSITION: Home with Home Health. PRIMARY DISCHARGE DIAGNOSES: Acute cholecystitis, biliary colic, status post laparoscopic cholecystectomy. SECONDARY DISCHARGE DIAGNOSES: Diabetes type 2, tobacco abuse disorder, hypertension, dyslipidemia, coronary artery disease, history of deep vein thrombosis, chronic anticoagulation, history of CVA, chronic obstructive pulmonary disease, obesity with BMI 34. PRIMARY PROCEDURE/OPERATION: Cholecystectomy was performed by Dr. Deras. RADIOLOGICAL INVESTIGATION: Chest x-ray, CT angiography, abdomen and pelvis CT scan, abdomen ultrasound, HIDA scan, echocardiography, stress test. SIGNIFICANT LABORATORY DATA: WBC 8.8, hemoglobin 13.3, platelet 240. INR 1.1. Hemoglobin A1c 11.3. Creatinine 0.81. LFT normal. Urine culture grew beta-hemolytic Streptococcus. DISCHARGE MEDICATIONS: 1. Amlodipine 10 mg daily. 2. Lipitor 40 mg p.o. daily. 3. Gabapentin 1200 mg p.o. b.i.d. 4. Glimepiride 2 mg p.o. daily. 5. Levemir insulin 25 units subcu at bedtime. 6. Losartan with hydrochlorothiazide 1 tablet daily. 7. Toprol-XL 50 mg daily. 8. Xarelto 20 mg p.o. daily. 9. Proventil inhaler q.i.d. p.r.n. 10. Tessalon 100 mg q.4 hourly p.r.n. 11. DuoNeb q.4 hourly p.r.n. CONTRAINDICATION: None. CODE STATUS: Full code. INPATIENT AGRICULTURAL SERVICE TECHNICIAN: Dr. Deras, did cholecystectomy. TEST RESULT PENDING ON DISCHARGE: None. ALLERGIES: NO KNOWN DRUG ALLERGIES. DISCHARGE PLAN: Posthospital, the patient will follow up with Dr. Scott, Dr. Abad, Dr. Deras as instructed. HOSPITAL COURSE: A 63-year-old male who was admitted by Dr. Callahan. Please see his H and P for further details. The patient was admitted for abdominal pain. The patient was suspected for acute cholecystitis. In the emergency room, CT angiography was negative for PE. Ultrasound showed no evidence of gallstone. The patient had CT abdomen and pelvis, which showed medullary nephrocalcinosis. HIDA scan was consistent with chronic gallbladder dyskinesis. The patient had echocardiography and stress test as a preoperative evaluation. The patient underwent cholecystectomy by Dr. Deras and postoperatively, the patient remained stable. The patient stayed in the hospital for several days because he was waiting for rehab evaluation and rehab authorization from insurance. Finally, the patient was declined from his insurance for rehab as per our shelter case manager and that is why we are discharging him home with Home Health. He will continue above-mentioned medication. I have seen and examined the patient at bedside today. Plan of care discussed with the patient in detail. His examination is normal. Job ID: [id number]
== END 2018-12-10 15:20 | disposition home health service (06) | DRG 418 ==
LOC: ERS 21:58 → 2SW 12-01 01:06 → OBSVTOIN 12-03 13:58 → 2NO 12-03 20:16
PROVIDERS: ADMIT Hospitalist; ATTEND Hospitalist
PROC: 0FT44ZZ Resection of Gallbladder, Percutaneous Endoscopic Approach (ICD-10-PCS; principal; 2018-12-03)
DX: K80.46 Calculus of bile duct with acute and chronic cholecystitis without obstruction (principal); I69.354 Hemiplegia and hemiparesis following cerebral infarction affecting left non-dominant side; F17.210 Nicotine dependence, cigarettes, uncomplicated; I10 Essential (primary) hypertension; E78.5 Hyperlipidemia, unspecified; I25.10 Atherosclerotic heart disease of native coronary artery without angina pectoris; J44.9 Chronic obstructive pulmonary disease, unspecified; E66.9 Obesity, unspecified; K82.8 Other specified diseases of gallbladder; E11.65 Type 2 diabetes mellitus with hyperglycemia; Z86.718 Personal history of other venous thrombosis and embolism; Z79.01 Long term (current) use of anticoagulants; Z68.34 Body mass index [BMI] 34.0-34.9, adult
CPT/HCPCS: 36415; 36416; 47532; 71045; 71275; 74176; 76700; 78227; 78452; 80053; 81003; 81015; 83036; 83690; 83880; 84484; 85025; 85610; 85730; 87086; 88304; 90471; 90732; 93005; 93017; 93306; 96361; 96374; A9500; A9537; G0009; J0153; J0360; J0670; J0690; J1610; J1650; J1815; J2001; J2270; J2370; J2405; J3010; Q9966; S0028

== ENCOUNTER 2018-12-11 20:38 | Emergency (ER) | payer MEDICARE, MEDICAID ==
[2018-12-11 22:05] LABS: #Basophils 0.1 thou/uL (0.0-0.2); #Eosinphils 0.1 thou/uL (0.0-0.7); #Monocytes 0.4 thou/uL (0.11-0.59); #Neutrophils 2.9 thou/uL (1.40-6.50); %Basophils 1.2 % (0.0-1.0); %Eosinophils 1.4 % (0.0-10.0); %Lymphocytes 36.2 % (21.0-51.0); %Monocytes 7.7 % (0.0-10.0); %Neutrophils 53.5 % (42.0-75.0); Hemoglobin 13.3 g/dL (14.0-18.0); Mean Corpuscular HGB CONC 32.5 g/dL (32.0-36.0); Mean Corpuscular Volume 86.1 fL (78.0-98.0); Mean Platelet Volume 7.1 fL (7.4-10.4); Platelet Count 318 thou/uL (130-400); RBC Distribution Width 12.8 % (11.5-14.5); Red Blood Cell (RBC) Count 4.74 mill/uL (4.70-6.10); White Blood Cell (WBC) Count 5.5 thou/uL (4.8-10.8)
[2018-12-11 22:23] LABS: ALT (SGPT) 23 U/L (8-55); AST (SGOT) 11 U/L (5-34); Albumin 4.1 g/dL (3.4-4.8); Alkaline Phosphatase 93 U/L (40-150); Anion Gap 14 mmol/L (10-20); BUN (Urea Nitrogen) 12 mg/dL (8.4-25.7); Bilirubin, Total 0.2 mg/dL (0.2-1.2); Calc. Creatinine Clearance 0 mL/min (70-130); Carbon Dioxide 27 mmol/L (23-31); Chloride 102 mmol/L (98-107); Estimated GFR-MDRD 64; Globulin 3.6 g/dL (2.4-3.5); Glucose 385 mg/dL (80-115); Lipase 84 U/L (8-78); Potassium 4.1 mmol/L (3.5-5.1); Protein, Total 7.7 g/dL (5.8-8.1); Sodium 139 mmol/L (136-145)
[2018-12-11] MEDS ORDERED: Ondansetron PF 4 MG/2 ML Vial ONE ×2 (22:44→22:45)
--- NOTE | 2018-12-11 23:50 | CT ---
CT Abdomen Pelvis W Con HISTORY: Recent cholecystectomy. Returns with vomiting. COMPARISON: 12/01/2018 study. FINDINGS: The lung bases are clear of infiltrative process is linear atelectasis reticular scarring p resent. The liver spleen and pancreas regions are unremarkable. The gallbladder has been removed there is elsie e minimal fluid within the gallbladder fossa, this could just represent some postoperative fluid. No fluid elsewhere within the abdomen and no air density seen associated with this. Right and left adrenal glands and right and left kidneys are normal in size a hypodensity involving t he left kidney is statistically most likely a cyst. An IVC filter is present. No significant periaortic or mesenteric lymphadenopathy. There is a moderate amount of stool in the right and transv erse colon. CT of pelvis performed with contrast enhancement: Prostate is mildly prominent suggestion of some sli ght bladder wall thickening. The appendix is normal. IMPRESSION: Postcholecystectomy change. No signs of abscess. Other incidental findings as noted above .
[2018-12-12] MEDS ORDERED: Amlodipine 5 MG TAB ONE (00:45)
== END 2018-12-12 00:59 | disposition home or self-care (01) ==
LOC: ERS 20:38
DX: A08.4 Viral intestinal infection, unspecified (principal); J45.909 Unspecified asthma, uncomplicated; I25.2 Old myocardial infarction; E11.9 Type 2 diabetes mellitus without complications; I10 Essential (primary) hypertension; F17.210 Nicotine dependence, cigarettes, uncomplicated; Z79.899 Other long term (current) drug therapy; Z79.4 Long term (current) use of insulin; Z86.718 Personal history of other venous thrombosis and embolism
CPT/HCPCS: 36415; 74177; 80053; 83690; 85025; 96361; 96374; J2405; Q9966

== ENCOUNTER 2019-11-02 13:33 | Emergency (ER) | payer MEDICARE, MEDICAID | END 2019-11-02 14:25 | disposition home or self-care (01) | LOC: ERS 13:33 | DX: B35.1 Tinea unguium (principal); B35.3 Tinea pedis; J45.909 Unspecified asthma, uncomplicated; I25.2 Old myocardial infarction; F17.210 Nicotine dependence, cigarettes, uncomplicated; Z79.899 Other long term (current) drug therapy | CPT/HCPCS: 99283 ==

== ENCOUNTER 2020-02-06 18:16 | Emergency (ER) | payer MEDICAID, MEDICARE ==
[2020-02-06 19:32] LABS: #Basophils 0.1 thou/uL (0.0-0.2); #Lymphocytes 2.2 thou/uL (1.20-3.40); #Monocytes 0.3 thou/uL (0.11-0.59); #Neutrophils 2.9 thou/uL (1.40-6.50); %Basophils 1.7 % (0.0-1.0); %Eosinophils 0.9 % (0.0-10.0); %Lymphocytes 39.7 % (21.0-51.0); %Monocytes 5.5 % (0.0-10.0); %Neutrophils 52.2 % (42.0-75.0); Hemoglobin 14.1 g/dL (14.0-18.0); Mean Corpuscular Hemoglobin 28.3 pg (27.0-31.0); Mean Corpuscular Volume 85.8 fL (78.0-98.0); Mean Platelet Volume 7.9 fL (7.4-10.4); Platelet Count 234 thou/uL (130-400); RBC Distribution Width 13.2 % (11.5-14.5); Red Blood Cell (RBC) Count 4.97 mill/uL (4.70-6.10); White Blood Cell (WBC) Count 5.5 thou/uL (4.8-10.8)
[2020-02-06 19:51] LABS: ALT (SGPT) 8 U/L (8-55); AST (SGOT) 11 U/L (5-34); Alkaline Phosphatase 82 U/L (40-110); Anion Gap 12 mmol/L (10-20); BUN (Urea Nitrogen) 9 mg/dL (8.4-25.7); Bilirubin, Total 0.7 mg/dL (0.2-1.2); Calc. Creatinine Clearance 0 mL/min (70-130); Calcium 9.3 mg/dL (7.8-10.44); Carbon Dioxide 28 mmol/L (23-31); Chloride 105 mmol/L (98-107); Estimated GFR-MDRD 77; Globulin 3.3 g/dL (2.4-3.5); Glucose 153 mg/dL (80-115); Potassium 3.5 mmol/L (3.5-5.1); Protein, Total 7.3 g/dL (5.8-8.1); Sodium 141 mmol/L (136-145)
--- NOTE | 2020-02-06 19:57 | RAD ---
XR Chest 1 View Portable History: Cough Comparison: Radiograph November Findings: Cardiac device projects over the left lateral hemithorax. Lungs are clear. No pneumothorax. No effusion. Cardiac silhouette and mediastinal contours are within normal limits. Impression: No acute intrathoracic abnormality.
[2020-02-06 20:34] LABS: Bilirubin Negative (Negative); Blood, Urine Negative (Negative); Clarity Clear (Clear); Glucose, Urine (Dipstick) 50 mg/dL (Negative); Ketone, Urine Negative (Negative); Leukocyte Negative Leu/uL (Negative); Nitrite Negative (Negative); Protein, Urine (Dipstick) 200 mg/dL (Neg-Trace); RBC/HPF 0-3 HPF (0-3); Specific Gravity, Urine 1.016 (1.002-1.036); Squamous Epithelial 0-3 HPF (0-3); Urobilinogen Normal mg/dL (Less than 2); WBC/HPF 0-3 HPF (0-3)
[2020-02-06 20:35] LABS: Bacteria/HPF Rare-Few HPF (None Seen)
== END 2020-02-06 22:11 | disposition home or self-care (01) ==
LOC: ERS 18:16
DX: R53.1 Weakness (principal); Z91.81 History of falling; J45.909 Unspecified asthma, uncomplicated; E11.9 Type 2 diabetes mellitus without complications; I25.2 Old myocardial infarction; F17.210 Nicotine dependence, cigarettes, uncomplicated; I10 Essential (primary) hypertension; Z79.4 Long term (current) use of insulin; Z79.899 Other long term (current) drug therapy; Z86.73 Personal history of transient ischemic attack (TIA), and cerebral infarction without residual deficits; W19.XXXA Unspecified fall, initial encounter; Z71.6 Tobacco abuse counseling
CPT/HCPCS: 36415; 71045; 80053; 81003; 81015; 85025; 93005

== ENCOUNTER 2020-02-10 15:28 | Emergency (ER) | payer MEDICARE ==
[2020-02-10 16:47] LABS: Hemoglobin 13.4 g/dL (14.0-18.0); Mean Corpuscular HGB CONC 33.4 g/dL (32.0-36.0); Mean Corpuscular Hemoglobin 28.8 pg (27.0-31.0); Mean Corpuscular Volume 86.1 fL (78.0-98.0); Mean Platelet Volume 8.2 fL (7.4-10.4); Platelet Count 207 thou/uL (130-400); RBC Distribution Width 13.3 % (11.5-14.5); Red Blood Cell (RBC) Count 4.67 mill/uL (4.70-6.10); White Blood Cell (WBC) Count 4.2 thou/uL (4.8-10.8)
[2020-02-10 17:07] LABS: ALT (SGPT) Less than 7 U/L (8-55); AST (SGOT) 10 U/L (5-34); Albumin 3.6 g/dL (3.4-4.8); Alkaline Phosphatase 81 U/L (40-110); Anion Gap 10 mmol/L (10-20); BUN (Urea Nitrogen) 7 mg/dL (8.4-25.7); Bilirubin, Total 0.5 mg/dL (0.2-1.2); Calc. Creatinine Clearance 0 mL/min (70-130); Calcium 8.8 mg/dL (7.8-10.44); Carbon Dioxide 27 mmol/L (23-31); Chloride 105 mmol/L (98-107); Estimated GFR-MDRD Greater than 90; Globulin 3.3 g/dL (2.4-3.5); Glucose 131 mg/dL (80-115); Potassium 3.6 mmol/L (3.5-5.1); Protein, Total 6.9 g/dL (5.8-8.1); Sodium 138 mmol/L (136-145)
[2020-02-10 17:40] LABS: Band 4 % (5-11); Eosinophils 4 % (0-10); Lymphocytes 42 % (21-51); MDiff Complete? YES; Monocytes 7 % (0-10); Neutrophil 37 % (42-75); Platelet Morphology Comment Appears Adequate; Polychromasia SLIGHT = 2-3 cells (100X) (0-2/hpf); Reactive Lymphocytes 6 % (0-10)
== END 2020-02-10 17:50 | disposition home or self-care (01) ==
LOC: ERS 15:28
DX: I69.359 Hemiplegia and hemiparesis following cerebral infarction affecting unspecified side (principal); R53.1 Weakness; J45.909 Unspecified asthma, uncomplicated; I25.2 Old myocardial infarction; I10 Essential (primary) hypertension; E11.9 Type 2 diabetes mellitus without complications; F17.210 Nicotine dependence, cigarettes, uncomplicated; Z79.01 Long term (current) use of anticoagulants; Z79.4 Long term (current) use of insulin
CPT/HCPCS: 36415; 80053; 85025; 99285

== ENCOUNTER 2020-03-14 05:40 | Emergency (ER) | payer MEDICARE ==
[2020-03-14] MEDS ORDERED: Ondansetron PF 4 MG/2 ML Vial ONE (05:48)
[2020-03-14 06:01] LABS: #Eosinphils 0.1 thou/uL (0.0-0.7); #Lymphocytes 3.3 thou/uL (1.20-3.40); #Monocytes 0.4 thou/uL (0.11-0.59); #Neutrophils 6.5 thou/uL (1.40-6.50); %Basophils 0.4 % (0.0-1.0); %Eosinophils 0.8 % (0.0-10.0); %Lymphocytes 32.4 % (21.0-51.0); %Monocytes 3.4 % (0.0-10.0); Hemoglobin 13.4 g/dL (14.0-18.0); Mean Corpuscular HGB CONC 30.7 g/dL (32.0-36.0); Mean Corpuscular Hemoglobin 26.3 pg (27.0-31.0); Mean Corpuscular Volume 85.9 fL (78.0-98.0); Mean Platelet Volume 7.7 fL (7.4-10.4); Platelet Count 247 thou/uL (130-400); RBC Distribution Width 13.1 % (11.5-14.5); White Blood Cell (WBC) Count 10.3 thou/uL (4.8-10.8)
[2020-03-14 06:14] LABS: Anion Gap 14 mmol/L (10-20); BUN (Urea Nitrogen) 12 mg/dL (8.4-25.7); Bilirubin, Total 0.2 mg/dL (0.2-1.2); Calc. Creatinine Clearance 0 mL/min (70-130); Calcium 9.2 mg/dL (7.8-10.44); Carbon Dioxide 26 mmol/L (23-31); Chloride 105 mmol/L (98-107); Estimated GFR-MDRD 80; Glucose 286 mg/dL (80-115); Potassium 3.5 mmol/L (3.5-5.1); Sodium 141 mmol/L (136-145)
[2020-03-14 06:15] LABS: ALT (SGPT) 9 U/L (8-55); AST (SGOT) 12 U/L (5-34); Albumin 3.9 g/dL (3.4-4.8); Alkaline Phosphatase 86 U/L (40-110); Globulin 3.5 g/dL (2.4-3.5); Protein, Total 7.4 g/dL (5.8-8.1)
[2020-03-14] MEDS ORDERED: Promethazine HCl 25 MG/ML VIAL ONE (07:31)
--- NOTE | 2020-03-19 16:17 | EKG ---
Test Reason : Blood Pressure : / mmHG Vent. Rate : 083 BPM Atrial Rate : 083 BPM P-R Int : 146 ms QRS Dur : 096 ms QT Int : 394 ms P-R-T Axes : 056 -10 002 degrees QTc Int : 462 ms Sinus rhythm with occasional Premature ventricular complexes Otherwise normal ECG Confirmed by MELLY DE LA ROSA M.D. ([id number]), state editor JUAN F HENSON ([id number] on 03/19/2020 4:16:37 PM Referred By: Confirmed By:MELLY DE LA ROSA M.D.
== END 2020-03-14 08:48 | disposition home or self-care (01) ==
LOC: ERS 05:40
DX: R11.2 Nausea with vomiting, unspecified (principal); J45.909 Unspecified asthma, uncomplicated; Z86.73 Personal history of transient ischemic attack (TIA), and cerebral infarction without residual deficits; E11.9 Type 2 diabetes mellitus without complications; F17.210 Nicotine dependence, cigarettes, uncomplicated; I25.2 Old myocardial infarction; I10 Essential (primary) hypertension; Z79.4 Long term (current) use of insulin; Z79.899 Other long term (current) drug therapy
CPT/HCPCS: 36416; 80053; 85025; 93005; 96365; 96375; J2405; J2550

== ENCOUNTER 2020-03-24 12:37 | Emergency (ER) | payer MEDICARE ==
[~2020-03-24 12:37] MED LIST changes: -ISOVUE-370 76%-LOCM 1 ML ONE; +Iopamidol-370 76% 500 ML 1 ML ONE
[2020-03-24] MEDS ORDERED: Ondansetron PF 4 MG/2 ML Vial ONE (13:25)
[2020-03-24] MEDS ORDERED: Pantoprazole 40 MG VIAL ONE (13:25)
--- NOTE | 2020-03-24 13:44 | RAD ---
EXAM: Single view of the chest HISTORY: Cough. Positive Covid test one month ago COMPARISON: 02/06/2020 FINDINGS: Single view of the chest shows a normal sized cardiomediastinal silhouette. A cardiac sunil toring device projects of the left chest wall. There is no evidence of consolidation, mass, or pleural effusion. Degenerative changes are seen in the spine. IMPRESSION: No evidence of acute cardiopulmonary disease
[2020-03-24 13:53] LABS: #Basophils 0.1 thou/uL (0.0-0.2); #Lymphocytes 1.6 thou/uL (1.20-3.40); #Monocytes 0.2 thou/uL (0.11-0.59); #Neutrophils 2.7 thou/uL (1.40-6.50); %Basophils 1.7 % (0.0-1.0); %Eosinophils 0.2 % (0.0-10.0); %Lymphocytes 34.8 % (21.0-51.0); %Monocytes 4.7 % (0.0-10.0); %Neutrophils 58.6 % (42.0-75.0); Hemoglobin 14.1 g/dL (14.0-18.0); Mean Corpuscular HGB CONC 32.3 g/dL (32.0-36.0); Mean Corpuscular Hemoglobin 27.8 pg (27.0-31.0); Mean Platelet Volume 7.9 fL (7.4-10.4); Platelet Count 247 thou/uL (130-400); Red Blood Cell (RBC) Count 5.07 mill/uL (4.70-6.10); White Blood Cell (WBC) Count 4.7 thou/uL (4.8-10.8)
[2020-03-24 14:05] LABS: Bacteria/HPF None Seen HPF (None Seen); Bilirubin Negative (Negative); Blood, Urine Negative (Negative); Clarity Clear (Clear); Glucose, Urine (Dipstick) Greater than 1000 mg/dL (Negative); Ketone, Urine Trace mg/dL (Negative); Leukocyte Negative Leu/uL (Negative); Nitrite Negative (Negative); Protein, Urine (Dipstick) 300 mg/dL (Neg-Trace); RBC/HPF 0-3 HPF (0-3); Specific Gravity, Urine 1.034 (1.002-1.036); Squamous Epithelial 0-3 HPF (0-3); WBC/HPF 0-3 HPF (0-3)
[2020-03-24 14:13] LABS: ALT (SGPT) 9 U/L (8-55); AST (SGOT) 10 U/L (5-34); Albumin 3.8 g/dL (3.4-4.8); Alkaline Phosphatase 105 U/L (40-110); Anion Gap 16 mmol/L (10-20); BUN (Urea Nitrogen) 15 mg/dL (8.4-25.7); Bilirubin, Total 0.7 mg/dL (0.2-1.2); Calc. Creatinine Clearance 0 mL/min (70-130); Calcium 9.2 mg/dL (7.8-10.44); Carbon Dioxide 29 mmol/L (23-31); Chloride 100 mmol/L (98-107); Estimated GFR-MDRD 60; Globulin 3.9 g/dL (2.4-3.5); Glucose 361 mg/dL (80-115); Lipase 25 U/L (8-78); Potassium 3.7 mmol/L (3.5-5.1); Protein, Total 7.7 g/dL (5.8-8.1); Sodium 141 mmol/L (136-145)
--- NOTE | 2020-03-24 14:17 | CT ---
CT Abdomen Pelvis W Con: 03/24/2020 1:40 PM CLINICAL INFORMATION: Vomiting and nausea for 2 weeks COMPARISON: 12/11/2018 TECHNIQUE: Multiple contiguous axial images were obtained and a CT of the abdomen and pelvis with IV contrast. C oronal and sagittal reformats were performed. FINDINGS: Lower Chest: within normal limits. Abdomen: Liver: within normal limits. Bile Ducts: Mild enlargement is likely a reservoir effect from prior cholecystectomy and is stable Gallbladder: Removed Pancreas: within normal limits. Spleen: within normal limits. Adrenals: within normal limits. Kidneys: 2.5 cm left renal cyst. Pelvis: Reproductive Organs: No pelvic masses. Ureters: within normal limits. Bladder: within normal limits. Peritoneum: No ascites or free air, no fluid collection. Bowel: Normal caliber. Normal appendix. Mesentery and Retroperitoneum: No enlarged mesenteric or retroperitoneal lymph nodes. Vessels: Atherosclerotic calcifications. The patient has an inferior vena cava filter. Abdominal Wall: within normal limits. Bones: Degenerative changes in the spine. There is a stable bony excrescence projecting off the anter ior aspect of the right superior pubic ramus. IMPRESSION: 1. No evidence of acute intraabdominal or pelvic abnormality. 2. Left renal cyst 3. 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
== END 2020-03-24 16:48 | disposition home or self-care (01) ==
LOC: ERS 12:37
DX: N28.1 Cyst of kidney, acquired (principal); R11.2 Nausea with vomiting, unspecified; J45.909 Unspecified asthma, uncomplicated; I25.2 Old myocardial infarction; E11.9 Type 2 diabetes mellitus without complications; I10 Essential (primary) hypertension; F17.210 Nicotine dependence, cigarettes, uncomplicated; Z79.899 Other long term (current) drug therapy
CPT/HCPCS: 36415; 36416; 51701; 71045; 74177; 80053; 81003; 81015; 83690; 83735; 84484; 85025; 93005; 96374; 96375; C9113; J2405

== ENCOUNTER 2020-08-24 11:25 | Emergency (ER) | payer MEDICARE ==
[2020-08-24 12:44] LABS: #Eosinphils 0.1 thou/uL (0.0-0.7); #Lymphocytes 1.6 thou/uL (1.20-3.40); #Monocytes 0.5 thou/uL (0.11-0.59); %Basophils 0.5 % (0.0-1.0); %Eosinophils 1.5 % (0.0-10.0); %Lymphocytes 26.4 % (21.0-51.0); %Monocytes 7.4 % (0.0-10.0); %Neutrophils 64.2 % (42.0-75.0); Hemoglobin 14.6 g/dL (14.0-18.0); Mean Corpuscular HGB CONC 32.5 g/dL (32.0-36.0); Mean Corpuscular Hemoglobin 27.3 pg (27.0-31.0); Mean Platelet Volume 7.6 fL (7.4-10.4); Platelet Count 232 thou/uL (130-400); RBC Distribution Width 12.6 % (11.5-14.5); Red Blood Cell (RBC) Count 5.35 mill/uL (4.70-6.10); White Blood Cell (WBC) Count 6.2 thou/uL (4.8-10.8)
[2020-08-24 13:10] LABS: ALT (SGPT) 9 U/L (8-55); AST (SGOT) 12 U/L (5-34); Albumin 3.7 g/dL (3.4-4.8); Alkaline Phosphatase 101 U/L (40-110); Anion Gap 16 mmol/L (10-20); BUN (Urea Nitrogen) 8 mg/dL (8.4-25.7); Bilirubin, Total 0.7 mg/dL (0.2-1.2); Calc. Creatinine Clearance 0 mL/min (70-130); Calcium 9.5 mg/dL (7.8-10.44); Carbon Dioxide 23 mmol/L (23-31); Chloride 101 mmol/L (98-107); Globulin 4.1 g/dL (2.4-3.5); Glucose 324 mg/dL (80-115); Potassium 3.6 mmol/L (3.5-5.1); Protein, Total 7.8 g/dL (5.8-8.1); Sodium 136 mmol/L (136-145)
== END 2020-08-24 14:18 | disposition home or self-care (01) ==
LOC: ERS 11:25
DX: S91.312A Laceration without foreign body, left foot, initial encounter (principal); S90.822A Blister (nonthermal), left foot, initial encounter; I25.2 Old myocardial infarction; E11.9 Type 2 diabetes mellitus without complications; I10 Essential (primary) hypertension; F17.210 Nicotine dependence, cigarettes, uncomplicated; X58.XXXA Exposure to other specified factors, initial encounter
CPT/HCPCS: 36415; 71045; 80053; 83605; 83880; 84484; 85025; 87040

== ENCOUNTER 2020-11-10 18:28 | Inpatient (IN) | payer MEDICARE ==
[2020-11-10 19:08] LABS: Hemoglobin 10.6 g/dL (14.0-18.0); Mean Corpuscular HGB CONC 32.5 g/dL (32.0-36.0); Mean Corpuscular Volume 83.1 fL (78.0-98.0); Mean Platelet Volume 7.7 fL (7.4-10.4); Platelet Count 347 thou/uL (130-400); RBC Distribution Width 13.4 % (11.5-14.5); Red Blood Cell (RBC) Count 3.93 mill/uL (4.70-6.10); White Blood Cell (WBC) Count 22.7 thou/uL (4.8-10.8)
[2020-11-10] MEDS ORDERED: Cefepime 2 GM VIAL ONE (19:13)
[2020-11-10 19:27] LABS: ALT (SGPT) 23 U/L (8-55); AST (SGOT) 29 U/L (5-34); Albumin 2.9 g/dL (3.4-4.8); Alkaline Phosphatase 117 U/L (40-110); Anion Gap 17 mmol/L (10-20); BUN (Urea Nitrogen) 19 mg/dL (8.4-25.7); Bilirubin, Total 0.8 mg/dL (0.2-1.2); Calc. Creatinine Clearance 0 mL/min (70-130); Calcium 9.4 mg/dL (7.8-10.44); Carbon Dioxide 35 mmol/L (23-31); Chloride 94 mmol/L (98-107); Globulin 5.7 g/dL (2.4-3.5); Glucose 405 mg/dL (80-115); Protein, Total 8.6 g/dL (5.8-8.1); Sodium 143 mmol/L (136-145)
[2020-11-10 19:34] LABS: Band 10 % (5-11); Lymphocytes 15 % (21-51); MDiff Complete? YES; Monocytes 4 % (0-10); Neutrophil 65 % (42-75); Platelet Morphology Comment Appears Adequate; Polychromasia SLIGHT = 2-3 cells (100X) (0-2/hpf); Reactive Lymphocytes 6 % (0-10)
[2020-11-10] MEDS ORDERED: Clindamycin/D5W 900 mg/50 ml Premix Bag ONE (20:11)
[2020-11-10 20:19] LABS: Bilirubin Negative (Negative); Blood, Urine 2+ (Negative); Glucose, Urine (Dipstick) Greater than 1000 mg/dL (Negative); Ketone, Urine Negative (Negative); Leukocyte Negative Leu/uL (Negative); Nitrite Negative (Negative); Protein, Urine (Dipstick) 300 mg/dL (Neg-Trace); Specific Gravity, Urine 1.032 (1.002-1.036); Squamous Epithelial 0-3 HPF (0-3); Urobilinogen 3 mg/dL (Less than 2)
[2020-11-10 20:20] LABS: Bacteria/HPF 1+ HPF (None Seen); Clarity Cloudy (Clear)
[2020-11-10] MEDS ORDERED: Vancomycin 1 GM/200 ML BAG ONE (20:41)
[2020-11-10] MEDS ORDERED: Ondansetron PF 4 MG/2 ML Vial IVP PRN (21:28)
[2020-11-10] MEDS ORDERED: Dextrose 50% Abboject 50 ML SYRINGE SLOW IVP PRN (21:39)
[2020-11-10] MEDS ORDERED: Dextrose 5% in Water 1,000 ML IV PRN (21:39)
[2020-11-10] MEDS ORDERED: Potassium Chloride 20 MEQ TAB PO SCH (21:45)
[2020-11-10 21:56] VITALS: BMI 30.9
[2020-11-10] MEDS: Sodium Chloride 0.9% 1,000 ML IV SCH (22:02)
[2020-11-10 22:23] LABS: Lactic Acid 1.7 mmol/L (0.5-2.2)
[2020-11-11] MEDS ORDERED: MEROPENEM 1 GM/50 ML 1 GM in Premix Bag 1 BAG IVPB SCH (00:30)
[2020-11-11] MEDS: HumaLOG 300 UNITS/3 ML VIAL SC PRN ×4 (00:44→16:32)
[2020-11-11] MEDS: Acetaminophen 325 MG TAB PO PRN (01:03)
[2020-11-11 05:40] LABS: Hemoglobin 9.8 g/dL (14.0-18.0); Mean Corpuscular HGB CONC 30.9 g/dL (32.0-36.0); Mean Corpuscular Hemoglobin 25.7 pg (27.0-31.0); Mean Corpuscular Volume 83.2 fL (78.0-98.0); Mean Platelet Volume 7.8 fL (7.4-10.4); Platelet Count 319 thou/uL (130-400); RBC Distribution Width 13.2 % (11.5-14.5); Red Blood Cell (RBC) Count 3.81 mill/uL (4.70-6.10)
[2020-11-11 05:52] LABS: Anion Gap 13 mmol/L (10-20); BUN (Urea Nitrogen) 18 mg/dL (8.4-25.7); Calc. Creatinine Clearance 77 mL/min (70-130); Calcium 8.7 mg/dL (7.8-10.44); Carbon Dioxide 31 mmol/L (23-31); Chloride 99 mmol/L (98-107); Glucose 361 mg/dL (80-115); Sodium 140 mmol/L (136-145)
[2020-11-11 06:22] LABS: Band 17 % (5-11); Lymphocytes 10 % (21-51); MDiff Complete? YES; Monocytes 6 % (0-10); Neutrophil 66 % (42-75); Reactive Lymphocytes 1 % (0-10)
[2020-11-11 06:32] LABS: Potassium 2.9 mmol/L (3.5-5.1)
[2020-11-11] MEDS ORDERED: Potassium Chloride 10 MEQ in Premix Bag 1 BAG IVPB SCH (06:45)
[2020-11-11] MEDS ORDERED: Potassium Chloride 20 MEQ TAB PO SCH (06:45)
[2020-11-11 08:44] LABS: Phosphorus 1.8 mg/dL (2.3-4.7)
[2020-11-11 08:44] LABS: INR-International Normal Ratio 1.2; PTT 32.3 sec (22.9-36.1)
[2020-11-11] MEDS ORDERED: Lantus 1000 UNITS/10 ML VIAL SC SCH ×2 (08:45→21:00)
[2020-11-11] MEDS: Potassium Chloride 10 MEQ in Premix Bag 1 BAG IVPB SCH ×3 (08:55→11:42)
[2020-11-11] MEDS: Sodium Chloride 0.9% 1,000 ML IV SCH (11:42)
[2020-11-11] MEDS: MEROPENEM 1 GM/50 ML 1 GM in Premix Bag 1 BAG IVPB SCH (12:57)
[2020-11-11] MEDS: PHOS-NAK 1 PKT PACK PO SCH ×2 (14:38→20:46)
[2020-11-11] MEDS: Lantus 1000 UNITS/10 ML VIAL SC SCH (20:46)
[2020-11-11] MEDS: Vancomycin 1 GM in Premix Bag 1 BAG IVPB SCH (20:46)
[2020-11-11] MEDS ORDERED: Enoxaparin Sodium 80 MG/0.8 ML SYRINGE SC SCH (21:00)
[2020-11-12] MEDS: Acetaminophen 325 MG TAB PO PRN ×2 (00:18→20:46)
[2020-11-12] MEDS: MEROPENEM 1 GM/50 ML 1 GM in Premix Bag 1 BAG IVPB SCH ×2 (00:19→13:26)
[2020-11-12] MEDS: Sodium Chloride 0.9% 1,000 ML IV SCH ×2 (05:25→13:26)
[2020-11-12 06:03] LABS: Hemoglobin 10.6 g/dL (14.0-18.0); Mean Corpuscular HGB CONC 31.7 g/dL (32.0-36.0); Mean Corpuscular Hemoglobin 26.5 pg (27.0-31.0); Mean Corpuscular Volume 83.6 fL (78.0-98.0); Mean Platelet Volume 7.8 fL (7.4-10.4); Platelet Count 330 thou/uL (130-400); RBC Distribution Width 13.4 % (11.5-14.5); White Blood Cell (WBC) Count 25.1 thou/uL (4.8-10.8)
[2020-11-12 06:10] LABS: Hemoglobin A1c Greater than 14.0 % (4.0-6.0)
[2020-11-12 06:15] LABS: Anion Gap 11 mmol/L (10-20); BUN (Urea Nitrogen) 6 mg/dL (8.4-25.7); Calc. Creatinine Clearance 109 mL/min (70-130); Calcium 8.8 mg/dL (7.8-10.44); Carbon Dioxide 34 mmol/L (23-31); Chloride 98 mmol/L (98-107); Glucose 122 mg/dL (80-115); Magnesium 1.7 mg/dL (1.6-2.6); Sodium 140 mmol/L (136-145)
[2020-11-12 06:18] LABS: Potassium 2.7 mmol/L (3.5-5.1)
[2020-11-12 06:45] LABS: Band 21 % (5-11); Lymphocytes 20 % (21-51); MDiff Complete? YES; Monocytes 6 % (0-10); Neutrophil 51 % (42-75); Reactive Lymphocytes 2 % (0-10)
[2020-11-12] MEDS ORDERED: Fentanyl 100 MCG/2 ML VIAL ONE ×2 (07:24→08:07)
[2020-11-12] MEDS ORDERED: Morphine Sulfate 2 MG/ML SYRINGE SLOW IVP PRN (07:53)
[2020-11-12] MEDS ORDERED: Promethazine HCl 25 MG/ML VIAL IVPB PRN (07:53)
[2020-11-12] MEDS ORDERED: Ondansetron HCl/PF 4 MG/2 ML Vial IVP PRN (07:53)
[2020-11-12] MEDS ORDERED: Promethazine HCl 25 MG/ML VIAL IM PRN (07:53)
[2020-11-12] MEDS: Amlodipine 5 MG TAB PO SCH (08:04)
[2020-11-12] MEDS: Hydrochlorothiazide 25 MG TAB PO SCH (08:04)
[2020-11-12] MEDS: PHOS-NAK 1 PKT PACK PO SCH (08:04)
[2020-11-12] MEDS ORDERED: Ondansetron PF 4 MG/2 ML Vial ONE (08:20)
[2020-11-12] MEDS ORDERED: PROPOFOL 200 MG/20 ML VIAL ONE (08:20)
[2020-11-12] MEDS ORDERED: Lidocaine 1% PF 5 ML VIAL ONE (08:20)
[2020-11-12] MEDS ORDERED: Sodium Hypochlorite 0.5% 473 ML BOT TOP SCH (09:15)
[2020-11-12] MEDS: HumaLOG 300 UNITS/3 ML VIAL SC PRN ×2 (15:16→17:03)
[2020-11-12] MEDS: Nicotine 14 MG PATCH TD SCH (17:01)
[2020-11-12] MEDS ORDERED: Potassium Bicarbonate/Cit Ac 20 MEQ TAB PO SCH (18:00)
[2020-11-12] MEDS: Lantus 1000 UNITS/10 ML VIAL SC SCH (20:45)
[2020-11-12] MEDS: Vancomycin 1 GM in Premix Bag 1 BAG IVPB SCH (20:45)
[2020-11-12 20:57] LABS: Vancomycin, Trough 3.2 ug/mL
[2020-11-13] MEDS: MEROPENEM 1 GM/50 ML 1 GM in Premix Bag 1 BAG IVPB SCH ×2 (00:31→15:08)
[2020-11-13] MEDS: Acetaminophen 325 MG TAB PO PRN (00:31)
[2020-11-13] MEDS: Sodium Chloride 0.9% 1,000 ML IV SCH ×2 (04:44→18:42)
[2020-11-13 08:14] LABS: Anion Gap 12 mmol/L (10-20); BUN (Urea Nitrogen) 10 mg/dL (8.4-25.7); Calc. Creatinine Clearance 106 mL/min (70-130); Calcium 8.2 mg/dL (7.8-10.44); Carbon Dioxide 33 mmol/L (23-31); Chloride 98 mmol/L (98-107); Glucose 194 mg/dL (80-115); Magnesium 1.8 mg/dL (1.6-2.6); Sodium 140 mmol/L (136-145)
[2020-11-13 08:15] LABS: Band 21 % (5-11); Lymphocytes 10 % (21-51); MDiff Complete? YES; Mean Corpuscular HGB CONC 30.2 g/dL (32.0-36.0); Mean Platelet Volume 7.9 fL (7.4-10.4); Metamyelocyte 1 % (0-0); Monocytes 5 % (0-10); Neutrophil 63 % (42-75); Platelet Count 338 thou/uL (130-400); RBC Distribution Width 13.6 % (11.5-14.5); Red Blood Cell (RBC) Count 3.98 mill/uL (4.70-6.10); White Blood Cell (WBC) Count 23.7 thou/uL (4.8-10.8)
[2020-11-13 08:23] LABS: Potassium 2.6 mmol/L (3.5-5.1)
[2020-11-13] MEDS: Amlodipine 5 MG TAB PO SCH (09:17)
[2020-11-13] MEDS: Hydrochlorothiazide 25 MG TAB PO SCH (09:18)
[2020-11-13] MEDS: VANCOMYCIN 1.25 GM/250 ML BAG 1.25 GM in Premix Bag 1 BAG IVPB SCH ×2 (09:19→23:03)
[2020-11-13] MEDS ORDERED: Iopamidol-370 76% 500 ML 1 ML ONE (09:21)
[2020-11-13] MEDS ORDERED: HYDROcodone/Acetaminophen 5/325 mg Tablet PO PRN (10:59)
[2020-11-13] MEDS ORDERED: Morphine 4 MG/ML VIAL SLOW IVP PRN (11:01)
[2020-11-13] MEDS ORDERED: HYDROcodone/Acetaminophen 10/325 mg Tablet PO SCH ×2 (11:15)
[2020-11-13] MEDS ORDERED: Potassium Chloride 20 MEQ TAB PO SCH (11:30)
[2020-11-13] MEDS: HumaLOG 300 UNITS/3 ML VIAL SC PRN ×2 (17:30→22:11)
[2020-11-13] MEDS: Nicotine 14 MG PATCH TD SCH (17:30)
[2020-11-13] MEDS: Gabapentin 100 MG CAP PO SCH (22:10)
[2020-11-13] MEDS: Lantus 1000 UNITS/10 ML VIAL SC SCH (22:10)
[2020-11-13] MEDS: Vancomycin 1 GM in Premix Bag 1 BAG IVPB SCH (22:11)
[2020-11-14] MEDS: MEROPENEM 1 GM/50 ML 1 GM in Premix Bag 1 BAG IVPB SCH ×3 (02:46→21:52)
[2020-11-14 06:01] LABS: Anion Gap 9 mmol/L (10-20); BUN (Urea Nitrogen) 8 mg/dL (8.4-25.7); Calc. Creatinine Clearance 106 mL/min (70-130); Carbon Dioxide 35 mmol/L (23-31); Chloride 99 mmol/L (98-107); Glucose 161 mg/dL (80-115); Magnesium 1.7 mg/dL (1.6-2.6); Sodium 140 mmol/L (136-145)
[2020-11-14 06:17] LABS: Hemoglobin 8.7 g/dL (14.0-18.0); Mean Corpuscular HGB CONC 30.5 g/dL (32.0-36.0); Mean Corpuscular Hemoglobin 25.1 pg (27.0-31.0); Mean Corpuscular Volume 82.3 fL (78.0-98.0); Mean Platelet Volume 7.5 fL (7.4-10.4); Platelet Count 355 thou/uL (130-400); RBC Distribution Width 13.4 % (11.5-14.5); Red Blood Cell (RBC) Count 3.46 mill/uL (4.70-6.10); White Blood Cell (WBC) Count 16.4 thou/uL (4.8-10.8)
[2020-11-14 06:18] LABS: Potassium 2.7 mmol/L (3.5-5.1)
[2020-11-14] MEDS: Sodium Chloride 0.9% 1,000 ML IV SCH ×2 (06:28→09:26)
[2020-11-14] MEDS ORDERED: Potassium Chloride 20 MEQ TAB PO SCH (06:30)
[2020-11-14 06:54] LABS: Band 13 % (5-11); Eosinophils 3 % (0-10); Lymphocytes 14 % (21-51); MDiff Complete? YES; Monocytes 3 % (0-10); Neutrophil 66 % (42-75); Reactive Lymphocytes 1 % (0-10)
[2020-11-14 07:11] LABS: SARS-CoV-2 NAA Rapid Test Not Detected (NotDetected)
[2020-11-14] MEDS: VANCOMYCIN 1.25 GM/250 ML BAG 1.25 GM in Premix Bag 1 BAG IVPB SCH ×2 (09:28→21:53)
[2020-11-14] MEDS: HYDROcodone/Acetaminophen 10/325 mg Tablet PO PRN (09:29)
[2020-11-14] MEDS: Amlodipine 5 MG TAB PO SCH (09:30)
[2020-11-14] MEDS: Gabapentin 100 MG CAP PO SCH ×2 (09:30→21:53)
[2020-11-14] MEDS ORDERED: Potassium Bicarbonate/Cit Ac 20 MEQ TAB PO SCH (13:00)
[2020-11-14 15:24] LABS: Potassium 3.2 mmol/L (3.5-5.1)
[2020-11-14] MEDS ORDERED: Fentanyl 100 MCG/2 ML VIAL ONE ×3 (15:51→18:40)
[2020-11-14] MEDS ORDERED: Midazolam HCl 2 mg/2 ml Vial ONE (15:51)
[2020-11-14] MEDS ORDERED: Sodium Hypochlorite 0.5% 473 ML BOT TOP SCH (16:00)
[2020-11-14] MEDS: Nicotine 14 MG PATCH TD SCH (16:10)
[2020-11-14] MEDS ORDERED: Ketamine 50 MG/ML (10ML VIAL) ONE (16:19)
[2020-11-14] MEDS ORDERED: Esmolol 100 MG/10 ML VIAL ONE (17:08)
[2020-11-14] MEDS ORDERED: Lidocaine 1% PF 5 ML VIAL ONE (17:08)
[2020-11-14] MEDS ORDERED: Ondansetron PF 4 MG/2 ML Vial ONE (17:08)
[2020-11-14] MEDS ORDERED: PHENYLEPHRINE-NS 100 MCG/ML 10 ML SYRINGE ONE (17:08)
[2020-11-14] MEDS ORDERED: PROPOFOL 200 MG/20 ML VIAL ONE (17:08)
[2020-11-14] MEDS ORDERED: Dexmedetomidine 200 MCG/2 ML VIAL ONE (18:40)
[2020-11-14] MEDS ORDERED: Ondansetron HCl/PF 4 MG/2 ML Vial IVP PRN (19:14)
[2020-11-14] MEDS ORDERED: HYDROmorphone 2 MG/ML VIAL SLOW IVP PRN (19:14)
[2020-11-14] MEDS ORDERED: Promethazine HCl 25 MG/ML VIAL IM PRN (19:14)
[2020-11-14] MEDS ORDERED: Promethazine HCl 25 MG/ML VIAL IVPB PRN (19:14)
[2020-11-14 20:14] LABS: Vancomycin, Trough 14.7 ug/mL
[2020-11-14] MEDS: Lantus 1000 UNITS/10 ML VIAL SC SCH (21:52)
[2020-11-14] MEDS: HumaLOG 300 UNITS/3 ML VIAL SC PRN (22:07)
[2020-11-15] MEDS: MEROPENEM 1 GM/50 ML 1 GM in Premix Bag 1 BAG IVPB SCH ×4 (05:42→23:05)
[2020-11-15] MEDS: HumaLOG 300 UNITS/3 ML VIAL SC PRN ×3 (05:45→21:35)
[2020-11-15 08:17] LABS: Hemoglobin 8.7 g/dL (14.0-18.0); Mean Corpuscular HGB CONC 30.2 g/dL (32.0-36.0); Mean Corpuscular Hemoglobin 25.2 pg (27.0-31.0); Mean Corpuscular Volume 83.4 fL (78.0-98.0); Mean Platelet Volume 7.3 fL (7.4-10.4); Platelet Count 397 thou/uL (130-400); RBC Distribution Width 13.6 % (11.5-14.5); Red Blood Cell (RBC) Count 3.47 mill/uL (4.70-6.10)
[2020-11-15 08:34] LABS: Anion Gap 7 mmol/L (10-20); BUN (Urea Nitrogen) 6 mg/dL (8.4-25.7); Calc. Creatinine Clearance 106 mL/min (70-130); Carbon Dioxide 35 mmol/L (23-31); Chloride 102 mmol/L (98-107); Glucose 147 mg/dL (80-115); Potassium 3.4 mmol/L (3.5-5.1); Sodium 141 mmol/L (136-145)
[2020-11-15 08:39] LABS: Band 4 % (5-11); Eosinophils 2 % (0-10); Lymphocytes 30 % (21-51); MDiff Complete? YES; Monocytes 1 % (0-10); Neutrophil 63 % (42-75); Platelet Morphology Comment Appears Adequate; Polychromasia SLIGHT = 2-3 cells (100X) (0-2/hpf)
[2020-11-15] MEDS: Amlodipine 5 MG TAB PO SCH (09:02)
[2020-11-15] MEDS: HYDROcodone/Acetaminophen 10/325 mg Tablet PO PRN ×2 (09:03→14:05)
[2020-11-15] MEDS: Gabapentin 100 MG CAP PO SCH (09:04)
[2020-11-15] MEDS: VANCOMYCIN 1.25 GM/250 ML BAG 1.25 GM in Premix Bag 1 BAG IVPB SCH ×3 (09:05→23:05)
[2020-11-15] MEDS ORDERED: Potassium Bicarbonate/Cit Ac 20 MEQ TAB PO SCH (09:30)
[2020-11-15] MEDS: Sodium Chloride 0.9% 1,000 ML IV SCH ×2 (12:59→23:06)
[2020-11-15] MEDS ORDERED: metFORMIN 500 MG TAB PO SCH (16:30)
[2020-11-15] MEDS: Nicotine 14 MG PATCH TD SCH (17:00)
[2020-11-15] MEDS: Rivaroxaban 10 MG TAB PO SCH (17:00)
[2020-11-15] MEDS: metFORMIN 500 MG TAB PO SCH (17:00)
[2020-11-15 20:23] LABS: Hemoglobin 9.4 g/dL (14.0-18.0); Mean Corpuscular Hemoglobin 26.4 pg (27.0-31.0); Mean Corpuscular Volume 82.8 fL (78.0-98.0); Mean Platelet Volume 7.2 fL (7.4-10.4); Platelet Count 466 thou/uL (130-400); RBC Distribution Width 13.7 % (11.5-14.5); Red Blood Cell (RBC) Count 3.55 mill/uL (4.70-6.10); White Blood Cell (WBC) Count 11.6 thou/uL (4.8-10.8)
[2020-11-15 20:40] LABS: Band 24 % (5-11); Eosinophils 1 % (0-10); Lymphocytes 17 % (21-51); MDiff Complete? YES; Monocytes 3 % (0-10); Neutrophil 52 % (42-75); Platelet Morphology Comment Appears Increased; Polychromasia MODERATE = 3-4 cells (100X) (0-2/hpf); Reactive Lymphocytes 3 % (0-10); Target Cells MODERATE= 6-15 cells (100X) (0-1/hpf)
[2020-11-15 20:43] LABS: Anion Gap 9 mmol/L (10-20); BUN (Urea Nitrogen) 5 mg/dL (8.4-25.7); Calc. Creatinine Clearance 106 mL/min (70-130); Carbon Dioxide 33 mmol/L (23-31); Chloride 102 mmol/L (98-107); Glucose 231 mg/dL (80-115); Potassium 3.6 mmol/L (3.5-5.1); Sodium 140 mmol/L (136-145)
[2020-11-15] MEDS ORDERED: Non-Formulary Item 1 EACH (Gabapentin [Gabapentin] 600 MG Tablet) PO SCH (21:00)
[2020-11-15] MEDS ORDERED: Non-Formulary Item 1 EACH (Gabapentin [Gabapentin] 600 MG) PO SCH (21:00)
[2020-11-15] MEDS: Lantus 1000 UNITS/10 ML VIAL SC SCH (21:36)
[2020-11-15] MEDS: Gabapentin 300 MG CAP PO SCH (21:37)
[2020-11-16] MEDS: HumaLOG 300 UNITS/3 ML VIAL SC PRN ×3 (06:25→16:40)
[2020-11-16 06:38] LABS: Anion Gap 10 mmol/L (10-20); BUN (Urea Nitrogen) 5 mg/dL (8.4-25.7); Calc. Creatinine Clearance 111 mL/min (70-130); Carbon Dioxide 27 mmol/L (23-31); Chloride 105 mmol/L (98-107); Glucose 151 mg/dL (80-115); Potassium 4.2 mmol/L (3.5-5.1); Sodium 138 mmol/L (136-145)
[2020-11-16 07:22] LABS: Hemoglobin 8.9 g/dL (14.0-18.0); Mean Corpuscular HGB CONC 30.7 g/dL (32.0-36.0); Mean Corpuscular Hemoglobin 25.6 pg (27.0-31.0); Mean Corpuscular Volume 83.4 fL (78.0-98.0); Mean Platelet Volume 7.9 fL (7.4-10.4); Platelet Count 439 thou/uL (130-400); RBC Distribution Width 13.7 % (11.5-14.5); Red Blood Cell (RBC) Count 3.47 mill/uL (4.70-6.10); White Blood Cell (WBC) Count 11.3 thou/uL (4.8-10.8)
[2020-11-16 09:00] LABS: Vancomycin, Trough 17.7 ug/mL
[2020-11-16] MEDS ORDERED: Non-Formulary Item 1 EACH (Losartan Potassium [Losartan Potassium] 50 MG Tablet) PO SCH (09:00)
[2020-11-16] MEDS: MEROPENEM 1 GM/50 ML 1 GM in Premix Bag 1 BAG IVPB SCH ×2 (10:12→16:40)
[2020-11-16 10:13] LABS: Band 10 % (5-11); Hypochromia SLIGHT = 6-15 cells (100X) (0-5/hpf); Lymphocytes 24 % (21-51); MDiff Complete? YES; Monocytes 5 % (0-10); Neutrophil 61 % (42-75); Platelet Morphology Comment Appears Increased; Polychromasia SLIGHT = 2-3 cells (100X) (0-2/hpf)
[2020-11-16] MEDS: Furosemide 20 MG TAB PO SCH (10:13)
[2020-11-16] MEDS: Aspirin 81 mg Enteric Coated Tablet PO SCH (10:13)
[2020-11-16] MEDS: metFORMIN 500 MG TAB PO SCH ×2 (10:13→16:42)
[2020-11-16] MEDS: Losartan 25 MG TAB PO SCH (10:13)
[2020-11-16] MEDS: Amlodipine 10 MG TAB PO SCH (10:13)
[2020-11-16] MEDS: Tamsulosin HCl 0.4 MG CAP PO SCH (10:13)
[2020-11-16] MEDS: Atorvastatin Calcium 40 MG TAB PO SCH (10:14)
[2020-11-16] MEDS: DULoxetine 30 MG CAP PO SCH (10:14)
[2020-11-16] MEDS: Gabapentin 300 MG CAP PO SCH ×2 (10:14→20:53)
[2020-11-16] MEDS: Saccharomyces boulardii 250 MG CAP PO SCH (10:15)
[2020-11-16] MEDS: Sodium Chloride 0.9% 1,000 ML IV SCH (12:39)
[2020-11-16] MEDS: VANCOMYCIN 1.25 GM/250 ML BAG 1.25 GM in Premix Bag 1 BAG IVPB SCH ×2 (12:47→23:51)
[2020-11-16] MEDS: Nicotine 14 MG PATCH TD SCH (16:40)
[2020-11-16] MEDS: Rivaroxaban 10 MG TAB PO SCH (16:40)
[2020-11-16] MEDS: HYDROcodone/Acetaminophen 10/325 mg Tablet PO PRN (16:41)
[2020-11-16] MEDS: Lantus 1000 UNITS/10 ML VIAL SC SCH (20:53)
[2020-11-16] MEDS ORDERED: Senokot S 8.6-50 MG TAB PO SCH (23:45)
[2020-11-17] MEDS: MEROPENEM 1 GM/50 ML 1 GM in Premix Bag 1 BAG IVPB SCH ×2 (02:14→09:40)
[2020-11-17] MEDS: Sodium Chloride 0.9% 1,000 ML IV SCH (02:18)
[2020-11-17 06:46] LABS: Hemoglobin 8.8 g/dL (14.0-18.0); Mean Corpuscular HGB CONC 31.3 g/dL (32.0-36.0); Mean Corpuscular Volume 83.1 fL (78.0-98.0); Mean Platelet Volume 7.1 fL (7.4-10.4); Platelet Count 534 thou/uL (130-400); Red Blood Cell (RBC) Count 3.37 mill/uL (4.70-6.10); White Blood Cell (WBC) Count 10.7 thou/uL (4.8-10.8)
[2020-11-17 07:05] LABS: Band 7 % (5-11); Lymphocytes 21 % (21-51); MDiff Complete? YES; Monocytes 6 % (0-10); Neutrophil 66 % (42-75); Platelet Morphology Comment Appears Increased
[2020-11-17 07:08] LABS: Anion Gap 10 mmol/L (10-20); BUN (Urea Nitrogen) 5 mg/dL (8.4-25.7); Calc. Creatinine Clearance 124 mL/min (70-130); Calcium 7.9 mg/dL (7.8-10.44); Carbon Dioxide 27 mmol/L (23-31); Chloride 105 mmol/L (98-107); Glucose 140 mg/dL (80-115); Potassium 3.4 mmol/L (3.5-5.1); Sodium 139 mmol/L (136-145)
[2020-11-17] MEDS ORDERED: Potassium Chloride 20 MEQ TAB PO SCH (07:30)
[2020-11-17] MEDS ORDERED: Glimepiride 2 MG TAB PO SCH (08:00)
[2020-11-17] MEDS ORDERED: Amoxicillin/Potassium Clav 875 MG TAB PO SCH (09:00)
[2020-11-17] MEDS ORDERED: Senokot S 8.6-50 MG TAB PO SCH (09:00)
[2020-11-17] MEDS: Saccharomyces boulardii 250 MG CAP PO SCH (09:31)
[2020-11-17] MEDS: Aspirin 81 mg Enteric Coated Tablet PO SCH (09:31)
[2020-11-17] MEDS: Atorvastatin Calcium 40 MG TAB PO SCH (09:32)
[2020-11-17] MEDS: Amlodipine 10 MG TAB PO SCH (09:32)
[2020-11-17] MEDS: Losartan 25 MG TAB PO SCH (09:32)
[2020-11-17] MEDS: DULoxetine 30 MG CAP PO SCH (09:33)
[2020-11-17] MEDS: Furosemide 20 MG TAB PO SCH (09:33)
[2020-11-17] MEDS: Gabapentin 300 MG CAP PO SCH (09:35)
[2020-11-17] MEDS: metFORMIN 500 MG TAB PO SCH (09:35)
[2020-11-17] MEDS: Tamsulosin HCl 0.4 MG CAP PO SCH (09:36)
[2020-11-17 11:19] LABS: Vancomycin, Trough 15.1 ug/mL
[2020-11-17 12:11] VITALS: BP 157/84; TEMP 98
[2020-11-17] MEDS: HumaLOG 300 UNITS/3 ML VIAL SC PRN (12:52)
== END 2020-11-17 14:00 | disposition swing bed (61) | DRG 854 ==
LOC: ERS 18:28 → SURG B 20:14
PROVIDERS: ADMIT Internal Medicine; ATTEND Internal Medicine
PROC: 0Y6M0Z8 Detachment at Right Foot, Complete 5th Ray, Open Approach (ICD-10-PCS; principal; 2020-11-12)
PROC: 0JBQ0ZZ Excision of Right Foot Subcutaneous Tissue and Fascia, Open Approach (ICD-10-PCS; 2020-11-12)
PROC: 0Y6C0Z3 Detachment at Right Upper Leg, Low, Open Approach (ICD-10-PCS; 2020-11-14)
DX: A41.9 Sepsis, unspecified organism (principal); I69.351 Hemiplegia and hemiparesis following cerebral infarction affecting right dominant side; L03.115 Cellulitis of right lower limb; N17.9 Acute kidney failure, unspecified; E11.52 Type 2 diabetes mellitus with diabetic peripheral angiopathy with gangrene; I10 Essential (primary) hypertension; I25.10 Atherosclerotic heart disease of native coronary artery without angina pectoris; R65.20 Severe sepsis without septic shock; E78.5 Hyperlipidemia, unspecified; E87.6 Hypokalemia; J45.909 Unspecified asthma, uncomplicated; F14.11 Cocaine abuse, in remission; R13.10 Dysphagia, unspecified; D64.9 Anemia, unspecified; E11.628 Type 2 diabetes mellitus with other skin complications; E11.65 Type 2 diabetes mellitus with hyperglycemia; Z20.822 Contact with and (suspected) exposure to COVID-19; E11.621 Type 2 diabetes mellitus with foot ulcer; L97.519 Non-pressure chronic ulcer of other part of right foot with unspecified severity; F17.210 Nicotine dependence, cigarettes, uncomplicated; Z86.718 Personal history of other venous thrombosis and embolism; Z79.01 Long term (current) use of anticoagulants; Z79.4 Long term (current) use of insulin; Z79.899 Other long term (current) drug therapy; Z95.5 Presence of coronary angioplasty implant and graft; Z90.49 Acquired absence of other specified parts of digestive tract; I25.2 Old myocardial infarction; I69.391 Dysphagia following cerebral infarction; Z71.6 Tobacco abuse counseling
CPT/HCPCS: 36415; 36416; 51701; 74230; 75635; 80048; 80053; 80202; 81003; 81015; 82274; 83036; 83605; 83735; 84100; 85025; 85610; 85730; 86850; 86900; 86901; 87040; 87076; 87086; 87149; 88305; 88311; 93005; 93010; 93923; 96365; 96367; J0692; J1815; J2185; J2250; J2270; J2405; J2704; J3010; J3370; J3480; J3490; Q9967; U0002; U0005

== ENCOUNTER 2021-10-14 19:45 | Inpatient (IN) | payer MEDICARE, OTHER ==
[2021-10-14] MEDS ORDERED: cloNIDine 0.1 MG TAB ONE (20:09)
[2021-10-14] MEDS ORDERED: cefTRIAXone\\ROCEPHIN 1 GM VIAL ONE (20:09)
[2021-10-14 20:28] LABS: #Lymphocytes 2.2 thou/uL (1.20-3.40); #Monocytes 0.6 thou/uL (0.11-0.59); #Neutrophils 6.9 thou/uL (1.40-6.50); %Basophils 0.3 % (0.0-1.0); %Eosinophils 0.1 % (0.0-10.0); %Lymphocytes 22.4 % (21.0-51.0); %Monocytes 6.6 % (0.0-10.0); %Neutrophils 70.6 % (42.0-75.0); Hemoglobin 11.6 g/dL (14.0-18.0); Mean Corpuscular Hemoglobin 27.5 pg (27.0-31.0); Mean Platelet Volume 7.7 fL (7.4-10.4); Platelet Count 172 thou/uL (130-400); RBC Distribution Width 12.6 % (11.5-14.5); Red Blood Cell (RBC) Count 4.21 mill/uL (4.70-6.10); White Blood Cell (WBC) Count 9.7 thou/uL (4.8-10.8)
[2021-10-14] MEDS ORDERED: Piperacillin/Tazobactam 3.375 GM VIAL ONE (20:40)
[2021-10-14] MEDS ORDERED: Vancomycin 1 GM/200 ML BAG ONE (20:40)
[2021-10-14 20:49] LABS: ALT (SGPT) 14 U/L (8-55); AST (SGOT) 37 U/L (5-34); Albumin 3.5 g/dL (3.4-4.8); Alkaline Phosphatase 102 U/L (40-110); Anion Gap 18 mmol/L (10-20); BUN (Urea Nitrogen) 54 mg/dL (8.4-25.7); Bilirubin, Total 0.5 mg/dL (0.2-1.2); Calc. Creatinine Clearance 0 mL/min (70-130); Calcium 8.5 mg/dL (7.8-10.44); Carbon Dioxide 21 mmol/L (23-31); Chloride 99 mmol/L (98-107); Globulin 3.9 g/dL (2.4-3.5); Lipase 30 U/L (8-78); Magnesium 2.1 mg/dL (1.6-2.6); Potassium 4.1 mmol/L (3.5-5.1); Protein, Total 7.4 g/dL (5.8-8.1); Sodium 134 mmol/L (136-145)
[2021-10-14 20:52] LABS: Glucose 611 mg/dL (80-115)
[2021-10-14 20:56] LABS: Bilirubin Negative (Negative); Blood, Urine 2+ (Negative); Clarity Clear (Clear); Glucose, Urine (Dipstick) Greater than 1000 mg/dL (Negative); Ketone, Urine Trace mg/dL (Negative); Leukocyte Negative Leu/uL (Negative); Nitrite Negative (Negative); Protein, Urine (Dipstick) 30 mg/dL (Neg-Trace); RBC/HPF 0-3 HPF (0-3); Specific Gravity, Urine 1.022 (1.002-1.036); Squamous Epithelial 0-3 HPF (0-3); Urobilinogen Normal mg/dL (Less than 2); WBC/HPF 0-3 HPF (0-3)
[2021-10-14 20:57] LABS: Bacteria/HPF 1+ HPF (None Seen)
[2021-10-14 21:16] LABS: CKMB 7.6 ng/mL (0-6.6)
[2021-10-14 21:39] LABS: Actual Bicarbonate (HCO3v) 20 mEq/L (22-28); Analyzer IN Cardio ER; Base Excess -3.5 mEq/L (-2.0 to +3.0); Calcium, Ionized (venous) 1.05 mmol/L (1.16-1.32); Chloride (VBG) 99 mmol/L (98-106); Hemoglobin (Hb) 12.3 g/dL (12.6-17.4); Sodium 133.5 mmol/L (133-146); pH (venous) 7.41 (7.32-7.43)
[2021-10-14] MEDS ORDERED: Insulin Regular 300 UNITS/3 ML VIAL ONE (21:40)
[2021-10-14 22:16] LABS: SARS-CoV-2 NAA Rapid Test Not Detected (NotDetected)
[2021-10-14] MEDS ORDERED: Acetaminophen 650 MG Suppository PR PRN (22:20)
[2021-10-14] MEDS ORDERED: Ondansetron ODT 4 MG TAB PO PRN (22:20)
[2021-10-14] MEDS ORDERED: Dextrose 5% in Water 1,000 ML IV PRN (22:20)
[2021-10-14] MEDS ORDERED: Ondansetron PF 4 MG/2 ML Vial IVP PRN (22:20)
[2021-10-14] MEDS ORDERED: Acetaminophen 325 MG TAB PO PRN (22:20)
[2021-10-14] MEDS ORDERED: Dextrose 50% Abboject 50 ML SYRINGE SLOW IVP PRN (22:20)
[2021-10-14] MEDS ORDERED: HumaLOG 300 UNITS/3 ML VIAL SC PRN ×2 (22:20)
[2021-10-14] MEDS ORDERED: Sodium Chloride 0.9% 500 ML IV SCH (22:30)
[2021-10-14 23:41] LABS: Anion Gap 19 mmol/L (10-20); BUN (Urea Nitrogen) 54 mg/dL (8.4-25.7); Calc. Creatinine Clearance 0 mL/min (70-130); Calcium 8.8 mg/dL (7.8-10.44); Carbon Dioxide 22 mmol/L (23-31); Chloride 97 mmol/L (98-107); Potassium 4.1 mmol/L (3.5-5.1); Sodium 134 mmol/L (136-145)
[2021-10-14 23:50] LABS: Glucose 606 mg/dL (80-115)
[2021-10-15] MEDS ORDERED: Sodium Chloride 0.9% 1,000 ML IV SCH (00:15)
[2021-10-15 02:00] LABS: Troponin I 0.033 ng/mL (< 0.028)
[2021-10-15 02:10] VITALS: BMI 24.3
[2021-10-15] MEDS ORDERED: Dextrose 50% Abboject 50 ML SYRINGE SLOW IVP PRN (02:26)
[2021-10-15] MEDS ORDERED: Dextrose 5% in Water 1,000 ML IV PRN (02:26)
[2021-10-15 02:57] LABS: #Monocytes 0.6 thou/uL (0.11-0.59); #Neutrophils 7.3 thou/uL (1.40-6.50); %Basophils 0.1 % (0.0-1.0); %Eosinophils 0.1 % (0.0-10.0); %Lymphocytes 20.5 % (21.0-51.0); %Monocytes 6.1 % (0.0-10.0); %Neutrophils 73.2 % (42.0-75.0); Hemoglobin 12.1 g/dL (14.0-18.0); Mean Corpuscular HGB CONC 31.9 g/dL (32.0-36.0); Mean Corpuscular Hemoglobin 27.3 pg (27.0-31.0); Mean Corpuscular Volume 85.5 fL (78.0-98.0); Mean Platelet Volume 7.3 fL (7.4-10.4); Platelet Count 182 thou/uL (130-400); RBC Distribution Width 12.6 % (11.5-14.5); Red Blood Cell (RBC) Count 4.44 mill/uL (4.70-6.10); White Blood Cell (WBC) Count 9.9 thou/uL (4.8-10.8)
[2021-10-15 03:12] LABS: Glucose 554 mg/dL (80-115)
[2021-10-15] MEDS: HumaLOG 300 UNITS/3 ML VIAL SC PRN ×2 (03:52→07:02)
[2021-10-15] MEDS: Sodium Chloride 0.9% 1,000 ML IV SCH ×3 (03:53→21:41)
[2021-10-15 04:30] LABS: Chloride 98 mmol/L (98-107); Sodium 135 mmol/L (136-145)
[2021-10-15 04:31] LABS: Calcium 9.3 mg/dL (7.8-10.44)
[2021-10-15 04:33] LABS: Anion Gap 18 mmol/L (10-20); Carbon Dioxide 23 mmol/L (23-31)
[2021-10-15 04:34] LABS: Calc. Creatinine Clearance 27 mL/min (70-130)
[2021-10-15 04:35] LABS: BUN (Urea Nitrogen) 55 mg/dL (8.4-25.7)
[2021-10-15] MEDS: Insulin Glargine 30 UNITS/0.3 ML VIAL SC SCH ×2 (09:19→21:39)
[2021-10-15] MEDS ORDERED: Rivaroxaban 15 MG TAB PO SCH (17:00)
[2021-10-15] MEDS ORDERED: Non-Formulary Item 1 EACH (Gabapentin [Gabapentin] 600 MG Tablet) PO SCH (21:00)
[2021-10-15] MEDS: Famotidine 20 MG TAB PO SCH (21:39)
[2021-10-15] MEDS: Gabapentin 300 MG CAP PO SCH (21:39)
[2021-10-15] MEDS: Labetalol HCl 100 MG/20 ML VIAL SLOW IVP PRN (21:59)
[2021-10-16 05:08] LABS: Hemoglobin A1c 13.7 % (4.0-6.0)
[2021-10-16] MEDS: Sodium Chloride 0.9% 1,000 ML IV SCH ×2 (05:37→09:06)
[2021-10-16 05:51] LABS: Anion Gap 16 mmol/L (10-20); BUN (Urea Nitrogen) 25 mg/dL (8.4-25.7); Calc. Creatinine Clearance 75 mL/min (70-130); Calcium 8.9 mg/dL (7.8-10.44); Carbon Dioxide 21 mmol/L (23-31); Chloride 104 mmol/L (98-107); Glucose 199 mg/dL (80-115); Potassium 3.7 mmol/L (3.5-5.1); Sodium 137 mmol/L (136-145)
[2021-10-16] MEDS: HumaLOG 300 UNITS/3 ML VIAL SC PRN ×2 (06:31→17:56)
[2021-10-16] MEDS: DULoxetine 30 MG CAP PO SCH (09:02)
[2021-10-16] MEDS: Gabapentin 300 MG CAP PO SCH ×2 (09:02→21:16)
[2021-10-16] MEDS: Tamsulosin HCl 0.4 MG CAP PO SCH (09:02)
[2021-10-16] MEDS: Insulin Glargine 30 UNITS/0.3 ML VIAL SC SCH ×2 (09:03→21:17)
[2021-10-16] MEDS: VANCOMYCIN 1.25 GM/250 ML BAG 1.25 GM in Premix Bag 1 BAG IVPB SCH (12:52)
[2021-10-16] MEDS ORDERED: HYDROcodone/Acetaminophen 7.5/325 mg Tablet PO PRN (13:31)
[2021-10-16] MEDS ORDERED: HYDROcodone/Acetaminophen 7.5/325 mg Tablet PO SCH (13:45)
[2021-10-16] MEDS: Famotidine 20 MG TAB PO SCH (21:16)
[2021-10-16] MEDS: Enoxaparin Sodium 80 MG/0.8 ML SYRINGE SC SCH (21:16)
[2021-10-17] MEDS: VANCOMYCIN 1.25 GM/250 ML BAG 1.25 GM in Premix Bag 1 BAG IVPB SCH ×2 (00:55→12:24)
[2021-10-17] MEDS: Sodium Chloride 0.9% 1,000 ML IV SCH ×2 (00:56→12:24)
[2021-10-17] MEDS: Labetalol HCl 100 MG/20 ML VIAL SLOW IVP PRN (01:06)
[2021-10-17 06:46] LABS: Hemoglobin 8.3 g/dL (14.0-18.0); Platelet Count 193 thou/uL (130-400)
[2021-10-17] MEDS: Insulin Glargine 30 UNITS/0.3 ML VIAL SC SCH ×2 (09:40→20:27)
[2021-10-17] MEDS: Enoxaparin Sodium 80 MG/0.8 ML SYRINGE SC SCH ×2 (09:41→20:27)
[2021-10-17] MEDS: Gabapentin 300 MG CAP PO SCH ×2 (09:41→20:27)
[2021-10-17] MEDS: DULoxetine 30 MG CAP PO SCH (09:41)
[2021-10-17] MEDS: Tamsulosin HCl 0.4 MG CAP PO SCH (09:41)
[2021-10-17 12:57] LABS: Hemoglobin 8.2 g/dL (14.0-18.0)
[2021-10-17] MEDS ORDERED: Docusate 100 MG CAP PO PRN (14:55)
[2021-10-17] MEDS ORDERED: Polyethylene Glycol 3350 17 GM Packet PO PRN (14:55)
[2021-10-17] MEDS: Famotidine 20 MG TAB PO SCH (20:27)
[2021-10-18] MEDS: VANCOMYCIN 1.25 GM/250 ML BAG 1.25 GM in Premix Bag 1 BAG IVPB SCH ×2 (01:01→13:14)
[2021-10-18] MEDS: Labetalol HCl 100 MG/20 ML VIAL SLOW IVP PRN (02:27)
[2021-10-18 04:01] LABS: Hemoglobin 10.5 g/dL (14.0-18.0); Mean Corpuscular HGB CONC 31.7 g/dL (32.0-36.0); Mean Corpuscular Volume 88.1 fL (78.0-98.0); Platelet Count 246 thou/uL (130-400); RBC Distribution Width 12.6 % (11.5-14.5); Red Blood Cell (RBC) Count 3.77 mill/uL (4.70-6.10); White Blood Cell (WBC) Count 7.3 thou/uL (4.8-10.8)
[2021-10-18 04:23] LABS: Anion Gap 13 mmol/L (10-20); BUN (Urea Nitrogen) 10 mg/dL (8.4-25.7); Calc. Creatinine Clearance 100 mL/min (70-130); Calcium 8.7 mg/dL (7.8-10.44); Carbon Dioxide 24 mmol/L (23-31); Chloride 109 mmol/L (98-107); Glucose 76 mg/dL (80-115); Iron 20 ug/dL (65-175); Iron Binding Capacity, Total 235 mcg/dL (261-462); Potassium 3.5 mmol/L (3.5-5.1); Sodium 142 mmol/L (136-145)
[2021-10-18 04:24] LABS: Iron 21 ug/dL (65-175); Iron Binding Capacity, Total 233 mcg/dL (261-462)
[2021-10-18 04:48] LABS: Ferritin 547.37 ng/mL (22-322)
[2021-10-18] MEDS: DULoxetine 30 MG CAP PO SCH (09:13)
[2021-10-18] MEDS: Enoxaparin Sodium 80 MG/0.8 ML SYRINGE SC SCH (09:13)
[2021-10-18] MEDS: Insulin Glargine 30 UNITS/0.3 ML VIAL SC SCH (09:14)
[2021-10-18] MEDS: Tamsulosin HCl 0.4 MG CAP PO SCH (09:14)
[2021-10-18] MEDS: Gabapentin 300 MG CAP PO SCH (09:14)
[2021-10-18 16:22] VITALS: TEMP 97.9
[2021-10-18 16:27] VITALS: BP 163/90
== END 2021-10-18 19:56 | disposition home or self-care (01) | DRG 70 ==
LOC: ERS 19:45 → 2NO 21:56
PROVIDERS: ADMIT Student in an Organized Health Care Education/Training Program; ATTEND Internal Medicine
DX: G93.41 Metabolic encephalopathy (principal); I21.A1 Myocardial infarction type 2; N17.9 Acute kidney failure, unspecified; I69.351 Hemiplegia and hemiparesis following cerebral infarction affecting right dominant side; N18.4 Chronic kidney disease, stage 4 (severe); I82.402 Acute embolism and thrombosis of unspecified deep veins of left lower extremity; J45.909 Unspecified asthma, uncomplicated; D63.1 Anemia in chronic kidney disease; I12.9 Hypertensive chronic kidney disease with stage 1 through stage 4 chronic kidney disease, or unspecified chronic kidney disease; R13.12 Dysphagia, oropharyngeal phase; E11.65 Type 2 diabetes mellitus with hyperglycemia; E11.51 Type 2 diabetes mellitus with diabetic peripheral angiopathy without gangrene; E86.0 Dehydration; Z89.511 Acquired absence of right leg below knee; Z86.718 Personal history of other venous thrombosis and embolism; I25.2 Old myocardial infarction; Z79.84 Long term (current) use of oral hypoglycemic drugs; Z79.899 Other long term (current) drug therapy; Z79.4 Long term (current) use of insulin; Z79.51 Long term (current) use of inhaled steroids
CPT/HCPCS: 36415; 36416; 70450; 71045; 74230; 76770; 80048; 80053; 80202; 81003; 81015; 82010; 82553; 82607; 82728; 82746; 82805; 83036; 83540; 83550; 83605; 83690; 83735; 83880; 84484; 85014; 85018; 85025; 85027; 85049; 87040; 87086; 87149; 93005; 96365; 96367; G0103; J0696; J1650; J1815; J2543; J3370; J7050; U0002

== ENCOUNTER 2021-10-20 19:52 | Inpatient (IN) | payer OTHER ==
[2021-10-20] MEDS ORDERED: Enoxaparin Sodium 100 MG/ML SYRINGE ONE (21:17)
[2021-10-20 21:20] LABS: #Lymphocytes 1.6 thou/uL (1.20-3.40); #Monocytes 0.6 thou/uL (0.11-0.59); #Neutrophils 7.3 thou/uL (1.40-6.50); %Basophils 0.5 % (0.0-1.0); %Eosinophils 0.4 % (0.0-10.0); %Lymphocytes 16.4 % (21.0-51.0); %Monocytes 6.1 % (0.0-10.0); %Neutrophils 76.6 % (42.0-75.0); Mean Corpuscular HGB CONC 31.6 g/dL (32.0-36.0); Mean Corpuscular Hemoglobin 27.5 pg (27.0-31.0); Mean Platelet Volume 6.7 fL (7.4-10.4); Platelet Count 362 thou/uL (130-400); RBC Distribution Width 12.7 % (11.5-14.5); Red Blood Cell (RBC) Count 3.99 mill/uL (4.70-6.10); White Blood Cell (WBC) Count 9.6 thou/uL (4.8-10.8)
[2021-10-20 21:32] LABS: PTT 30.2 sec (22.9-36.1); Prothrombin Time 13.8 sec (12.0-14.7)
[2021-10-20 21:42] LABS: ALT (SGPT) 12 U/L (8-55); AST (SGOT) 18 U/L (5-34); Albumin 3.2 g/dL (3.4-4.8); Alkaline Phosphatase 91 U/L (40-110); Anion Gap 15 mmol/L (10-20); BUN (Urea Nitrogen) 15 mg/dL (8.4-25.7); Bilirubin, Total 0.5 mg/dL (0.2-1.2); Calc. Creatinine Clearance 0 mL/min (70-130); Calcium 9.1 mg/dL (7.8-10.44); Carbon Dioxide 26 mmol/L (23-31); Chloride 104 mmol/L (98-107); Globulin 3.9 g/dL (2.4-3.5); Glucose 302 mg/dL (80-115); Potassium 4.1 mmol/L (3.5-5.1); Protein, Total 7.1 g/dL (5.8-8.1); Sodium 141 mmol/L (136-145)
[2021-10-20] MEDS ORDERED: Dextrose 5% in Water 1,000 ML IV PRN (23:07)
[2021-10-20] MEDS ORDERED: Dextrose 50% Abboject 50 ML SYRINGE SLOW IVP PRN (23:07)
[2021-10-20] MEDS ORDERED: Acetaminophen 650 MG Suppository PR PRN (23:07)
[2021-10-20] MEDS ORDERED: Ondansetron ODT 4 MG TAB PO PRN (23:07)
[2021-10-20] MEDS ORDERED: Ondansetron PF 4 MG/2 ML Vial IVP PRN (23:07)
[2021-10-21 04:55] LABS: #Lymphocytes 1.9 thou/uL (1.20-3.40); #Monocytes 0.6 thou/uL (0.11-0.59); #Neutrophils 7.4 thou/uL (1.40-6.50); %Basophils 0.3 % (0.0-1.0); %Eosinophils 0.4 % (0.0-10.0); %Lymphocytes 18.9 % (21.0-51.0); %Monocytes 5.9 % (0.0-10.0); %Neutrophils 74.6 % (42.0-75.0); Hemoglobin 11.1 g/dL (14.0-18.0); Mean Corpuscular HGB CONC 30.8 g/dL (32.0-36.0); Mean Corpuscular Hemoglobin 27.5 pg (27.0-31.0); Mean Corpuscular Volume 89.4 fL (78.0-98.0); Mean Platelet Volume 7.5 fL (7.4-10.4); Platelet Count 348 thou/uL (130-400); RBC Distribution Width 12.8 % (11.5-14.5); Red Blood Cell (RBC) Count 4.03 mill/uL (4.70-6.10); White Blood Cell (WBC) Count 9.9 thou/uL (4.8-10.8)
[2021-10-21 05:17] LABS: Anion Gap 17 mmol/L (10-20); BUN (Urea Nitrogen) 16 mg/dL (8.4-25.7); Calc. Creatinine Clearance 78 mL/min (70-130); Calcium 9.4 mg/dL (7.8-10.44); Carbon Dioxide 23 mmol/L (23-31); Chloride 103 mmol/L (98-107); Glucose 379 mg/dL (80-115); Potassium 4.3 mmol/L (3.5-5.1); Sodium 139 mmol/L (136-145)
[2021-10-21] MEDS: HumaLOG 300 UNITS/3 ML VIAL SC PRN ×4 (05:41→22:29)
[2021-10-21] MEDS: Enoxaparin Sodium 100 MG/ML SYRINGE SC SCH ×2 (08:51→22:28)
[2021-10-21] MEDS ORDERED: Albuterol Sulfate 2.5 mg/3 ml Neb NEB PRN (15:45)
[2021-10-21] MEDS: metFORMIN 500 MG TAB PO SCH (16:35)
[2021-10-21] MEDS: Warfarin Sodium 5 MG TAB PO SCH (16:35)
[2021-10-21] MEDS: Famotidine 20 MG TAB PO SCH (22:28)
[2021-10-21] MEDS: Gabapentin 400 MG CAP PO SCH (22:28)
[2021-10-21] MEDS: Insulin Glargine 30 UNITS/0.3 ML VIAL SC SCH (22:29)
[2021-10-22 05:15] LABS: INR-International Normal Ratio 1.1; Prothrombin Time 13.8 sec (12.0-14.7)
[2021-10-22] MEDS: HumaLOG 300 UNITS/3 ML VIAL SC PRN ×3 (06:20→21:21)
[2021-10-22] MEDS: Gabapentin 400 MG CAP PO SCH ×2 (10:54→21:20)
[2021-10-22] MEDS: Enoxaparin Sodium 100 MG/ML SYRINGE SC SCH ×2 (10:56→21:19)
[2021-10-22] MEDS: metFORMIN 500 MG TAB PO SCH ×2 (10:58→17:27)
[2021-10-22] MEDS: Amlodipine 10 MG TAB PO SCH (10:59)
[2021-10-22] MEDS: Hydrochlorothiazide 25 MG TAB PO SCH (10:59)
[2021-10-22] MEDS: Tamsulosin HCl 0.4 MG CAP PO SCH (11:00)
[2021-10-22] MEDS: Famotidine 20 MG TAB PO SCH ×2 (11:00→21:20)
[2021-10-22] MEDS: DULoxetine 30 MG CAP PO SCH (11:00)
[2021-10-22] MEDS: Insulin Glargine 30 UNITS/0.3 ML VIAL SC SCH ×2 (11:10→21:20)
[2021-10-22] MEDS: Warfarin Sodium 5 MG TAB PO SCH (17:27)
[2021-10-23 04:23] LABS: Prothrombin Time 13.3 sec (12.0-14.7)
[2021-10-23] MEDS: Gabapentin 400 MG CAP PO SCH ×2 (09:30→22:15)
[2021-10-23] MEDS: DULoxetine 30 MG CAP PO SCH (09:34)
[2021-10-23] MEDS: metFORMIN 500 MG TAB PO SCH ×2 (09:34→17:07)
[2021-10-23] MEDS: Amlodipine 10 MG TAB PO SCH (09:35)
[2021-10-23] MEDS: Famotidine 20 MG TAB PO SCH ×2 (09:36→22:15)
[2021-10-23] MEDS: Tamsulosin HCl 0.4 MG CAP PO SCH (09:36)
[2021-10-23] MEDS: Hydrochlorothiazide 25 MG TAB PO SCH (09:37)
[2021-10-23] MEDS: Enoxaparin Sodium 100 MG/ML SYRINGE SC SCH ×2 (09:38→22:14)
[2021-10-23] MEDS: Insulin Glargine 30 UNITS/0.3 ML VIAL SC SCH ×2 (09:41→22:15)
[2021-10-23 11:09] VITALS: BMI 29.9
[2021-10-23] MEDS ORDERED: Warfarin Sodium 10 MG TAB PO SCH (17:00)
[2021-10-23] MEDS: HumaLOG 300 UNITS/3 ML VIAL SC PRN (17:10)
[2021-10-24 04:41] LABS: Prothrombin Time 13.2 sec (12.0-14.7)
[2021-10-24] MEDS: Gabapentin 400 MG CAP PO SCH ×2 (10:14→21:08)
[2021-10-24] MEDS: Hydrochlorothiazide 25 MG TAB PO SCH (10:15)
[2021-10-24] MEDS: metFORMIN 500 MG TAB PO SCH ×2 (10:15→18:02)
[2021-10-24] MEDS: Amlodipine 10 MG TAB PO SCH (10:17)
[2021-10-24] MEDS: Famotidine 20 MG TAB PO SCH ×2 (10:17→21:09)
[2021-10-24] MEDS: DULoxetine 30 MG CAP PO SCH (10:17)
[2021-10-24] MEDS: Tamsulosin HCl 0.4 MG CAP PO SCH (10:18)
[2021-10-24] MEDS: Enoxaparin Sodium 100 MG/ML SYRINGE SC SCH ×2 (10:19→21:08)
[2021-10-24] MEDS: Insulin Glargine 30 UNITS/0.3 ML VIAL SC SCH ×2 (10:22→21:08)
[2021-10-24] MEDS ORDERED: Warfarin Sodium 5 MG TAB PO SCH (17:00)
[2021-10-24] MEDS: Warfarin Sodium 10 MG TAB PO SCH (18:02)
[2021-10-25 05:17] LABS: INR-International Normal Ratio 1.1; Prothrombin Time 14.1 sec (12.0-14.7)
[2021-10-25] MEDS: Enoxaparin Sodium 100 MG/ML SYRINGE SC SCH ×2 (10:29→22:19)
[2021-10-25] MEDS: Famotidine 20 MG TAB PO SCH ×2 (10:29→21:55)
[2021-10-25] MEDS: Amlodipine 10 MG TAB PO SCH (10:29)
[2021-10-25] MEDS: Gabapentin 400 MG CAP PO SCH ×2 (10:29→21:55)
[2021-10-25] MEDS: DULoxetine 30 MG CAP PO SCH (10:29)
[2021-10-25] MEDS: Hydrochlorothiazide 25 MG TAB PO SCH (10:29)
[2021-10-25] MEDS: metFORMIN 500 MG TAB PO SCH ×2 (10:29→17:47)
[2021-10-25] MEDS: Insulin Glargine 30 UNITS/0.3 ML VIAL SC SCH ×2 (10:29→21:55)
[2021-10-25] MEDS: Tamsulosin HCl 0.4 MG CAP PO SCH (10:30)
[2021-10-25] MEDS: Acetaminophen 325 MG TAB PO PRN (10:30)
[2021-10-25] MEDS: Warfarin Sodium 10 MG TAB PO SCH (17:47)
[2021-10-26 06:30] LABS: #Eosinphils 0.1 thou/uL (0.0-0.7); #Lymphocytes 1.7 thou/uL (1.20-3.40); #Monocytes 0.3 thou/uL (0.11-0.59); #Neutrophils 6.9 thou/uL (1.40-6.50); %Basophils 0.3 % (0.0-1.0); %Eosinophils 0.8 % (0.0-10.0); %Lymphocytes 18.5 % (21.0-51.0); %Monocytes 3.7 % (0.0-10.0); %Neutrophils 76.8 % (42.0-75.0); Hemoglobin 10.1 g/dL (14.0-18.0); Mean Corpuscular HGB CONC 30.6 g/dL (32.0-36.0); Mean Corpuscular Hemoglobin 27.1 pg (27.0-31.0); Mean Corpuscular Volume 88.5 fL (78.0-98.0); Mean Platelet Volume 6.1 fL (7.4-10.4); Platelet Count 460 thou/uL (130-400); RBC Distribution Width 12.5 % (11.5-14.5); Red Blood Cell (RBC) Count 3.73 mill/uL (4.70-6.10)
[2021-10-26 06:43] LABS: INR-International Normal Ratio 1.2; Prothrombin Time 14.9 sec (12.0-14.7)
[2021-10-26 06:54] LABS: Anion Gap 10 mmol/L (10-20); BUN (Urea Nitrogen) 10 mg/dL (8.4-25.7); Calc. Creatinine Clearance 105 mL/min (70-130); Calcium 9.5 mg/dL (7.8-10.44); Carbon Dioxide 32 mmol/L (23-31); Chloride 100 mmol/L (98-107); Estimated GFR 90; Glucose 92 mg/dL (80-115); Potassium 3.8 mmol/L (3.5-5.1); Sodium 138 mmol/L (136-145)
[2021-10-26] MEDS: Gabapentin 400 MG CAP PO SCH ×2 (09:21→22:42)
[2021-10-26] MEDS: Amlodipine 10 MG TAB PO SCH (09:21)
[2021-10-26] MEDS: metFORMIN 500 MG TAB PO SCH ×3 (09:21→17:37)
[2021-10-26] MEDS: Famotidine 20 MG TAB PO SCH ×2 (09:21→22:42)
[2021-10-26] MEDS: Tamsulosin HCl 0.4 MG CAP PO SCH (09:21)
[2021-10-26] MEDS: Enoxaparin Sodium 100 MG/ML SYRINGE SC SCH ×2 (09:22→22:41)
[2021-10-26] MEDS: Hydrochlorothiazide 25 MG TAB PO SCH (09:22)
[2021-10-26] MEDS: Insulin Glargine 30 UNITS/0.3 ML VIAL SC SCH ×2 (09:22→23:32)
[2021-10-26] MEDS: DULoxetine 30 MG CAP PO SCH (09:23)
[2021-10-26] MEDS: Warfarin Sodium 5 MG TAB PO SCH (17:37)
[2021-10-26] MEDS: Acetaminophen 325 MG TAB PO PRN (22:51)
[2021-10-27] MEDS ORDERED: Sodium Chloride 0.9% 500 ML IV SCH (00:45)
[2021-10-27 01:11] LABS: Bacteria/HPF 3+ HPF (None Seen); Bilirubin Negative (Negative); Blood, Urine 3+ (Negative); Clarity Extra Turbid (Clear); Glucose, Urine (Dipstick) Normal (Negative); Ketone, Urine Negative (Negative); Leukocyte 500 Leu/uL (Negative); Nitrite 2+ (Negative); Protein, Urine (Dipstick) 70 mg/dL (Neg-Trace); RBC/HPF 21-50 HPF (0-3); Specific Gravity, Urine 1.021 (1.002-1.036); Squamous Epithelial 0-3 HPF (0-3); Transitional Epithelial 0-3 HPF (None Seen); WBC/HPF Greater than 50 HPF (0-3); pH, Urine 5.5 (5.0-9.0)
[2021-10-27 06:53] LABS: #Lymphocytes 1.1 thou/uL (1.20-3.40); #Monocytes 0.4 thou/uL (0.11-0.59); #Neutrophils 5.3 thou/uL (1.40-6.50); %Basophils 0.3 % (0.0-1.0); %Eosinophils 0.5 % (0.0-10.0); %Lymphocytes 16.2 % (21.0-51.0); %Monocytes 5.7 % (0.0-10.0); %Neutrophils 77.3 % (42.0-75.0); Hemoglobin 10.2 g/dL (14.0-18.0); Mean Corpuscular HGB CONC 31.1 g/dL (32.0-36.0); Mean Corpuscular Hemoglobin 26.9 pg (27.0-31.0); Mean Corpuscular Volume 86.3 fL (78.0-98.0); Mean Platelet Volume 6.5 fL (7.4-10.4); Platelet Count 442 thou/uL (130-400); RBC Distribution Width 12.5 % (11.5-14.5); White Blood Cell (WBC) Count 6.8 thou/uL (4.8-10.8)
[2021-10-27 07:02] LABS: INR-International Normal Ratio 1.3; Prothrombin Time 16.4 sec (12.0-14.7)
[2021-10-27 07:14] LABS: Anion Gap 16 mmol/L (10-20); BUN (Urea Nitrogen) 12 mg/dL (8.4-25.7); Calc. Creatinine Clearance 98 mL/min (70-130); Calcium 8.7 mg/dL (7.8-10.44); Carbon Dioxide 26 mmol/L (23-31); Chloride 100 mmol/L (98-107); Estimated GFR 83; Glucose 111 mg/dL (80-115); Sodium 138 mmol/L (136-145)
[2021-10-27] MEDS: metFORMIN 500 MG TAB PO SCH ×2 (10:20→17:00)
[2021-10-27] MEDS: Gabapentin 400 MG CAP PO SCH ×2 (10:20→21:12)
[2021-10-27] MEDS: Enoxaparin Sodium 100 MG/ML SYRINGE SC SCH ×2 (10:20→21:13)
[2021-10-27] MEDS: Tamsulosin HCl 0.4 MG CAP PO SCH (10:21)
[2021-10-27] MEDS: Amlodipine 10 MG TAB PO SCH (10:21)
[2021-10-27] MEDS: Famotidine 20 MG TAB PO SCH ×2 (10:22→21:13)
[2021-10-27] MEDS: DULoxetine 30 MG CAP PO SCH (10:22)
[2021-10-27] MEDS: Hydrochlorothiazide 25 MG TAB PO SCH (10:22)
[2021-10-27] MEDS: Insulin Glargine 30 UNITS/0.3 ML VIAL SC SCH ×2 (10:48→22:23)
[2021-10-27] MEDS: Warfarin Sodium 5 MG TAB PO SCH (17:00)
[2021-10-27] MEDS: Acetaminophen 325 MG TAB PO PRN (21:13)
[2021-10-28] MEDS ORDERED: cefTRIAXone\\ROCEPHIN 1 GM in Sodium Chloride 0.9% 100 ML IVPB SCH (00:30)
[2021-10-28 06:34] LABS: INR-International Normal Ratio 1.3; Prothrombin Time 16.1 sec (12.0-14.7)
[2021-10-28] MEDS ORDERED: Dexamethasone 1 MG TAB PO SCH (08:00)
[2021-10-28] MEDS: Enoxaparin Sodium 100 MG/ML SYRINGE SC SCH ×2 (09:45→21:51)
[2021-10-28] MEDS: Famotidine 20 MG TAB PO SCH ×2 (09:45→20:50)
[2021-10-28] MEDS: Tamsulosin HCl 0.4 MG CAP PO SCH (09:45)
[2021-10-28] MEDS: Insulin Glargine 30 UNITS/0.3 ML VIAL SC SCH ×2 (09:45→20:50)
[2021-10-28] MEDS: Amlodipine 10 MG TAB PO SCH (09:46)
[2021-10-28] MEDS: metFORMIN 500 MG TAB PO SCH ×2 (09:46→16:53)
[2021-10-28] MEDS: Hydrochlorothiazide 25 MG TAB PO SCH (09:46)
[2021-10-28] MEDS: Gabapentin 400 MG CAP PO SCH ×2 (09:46→20:50)
[2021-10-28] MEDS: DULoxetine 30 MG CAP PO SCH (09:46)
[2021-10-28] MEDS: Acetaminophen 325 MG TAB PO PRN (09:47)
[2021-10-28] MEDS ORDERED: Acetaminophen 650 MG Suppository PR PRN (10:12)
[2021-10-28] MEDS ORDERED: Albuterol 200 PUFF (6.7GM INHALER) INH PRN (10:12)
[2021-10-28] MEDS ORDERED: Benzonatate 100 MG CAP PO PRN (10:12)
[2021-10-28] MEDS ORDERED: Ascorbic Acid 500 mg Chewable Tablet PO SCH (10:45)
[2021-10-28] MEDS ORDERED: Zinc Sulfate 220 MG CAP PO SCH (10:45)
[2021-10-28] MEDS ORDERED: Piperacillin/Tazobactam 3.375 GM in Sodium Chloride 0.9% 100 ML IVPB SCH (11:00)
[2021-10-28 11:13] LABS: Lactic Acid 1.4 mmol/L (0.5-2.2)
[2021-10-28 12:42] LABS: Legionella Urinary Ag Negative (Negative)
[2021-10-28 12:43] LABS: Strep pneumo Urine Ag NEGATIVE (NEGATIVE)
[2021-10-28] MEDS: Piperacillin/Tazobactam 3.375 GM in Sodium Chloride 0.9% 100 ML IVPB SCH (16:53)
[2021-10-28] MEDS: Warfarin Sodium 5 MG TAB PO SCH (16:54)
[2021-10-29] MEDS: Piperacillin/Tazobactam 3.375 GM in Sodium Chloride 0.9% 100 ML IVPB SCH ×3 (00:32→17:12)
[2021-10-29 06:52] LABS: #Eosinphils 0.1 thou/uL (0.0-0.7); #Lymphocytes 1.8 thou/uL (1.20-3.40); #Monocytes 0.4 thou/uL (0.11-0.59); #Neutrophils 3.8 thou/uL (1.40-6.50); %Basophils 0.7 % (0.0-1.0); %Eosinophils 1.9 % (0.0-10.0); %Monocytes 6.8 % (0.0-10.0); %Neutrophils 61.7 % (42.0-75.0); Hemoglobin 9.8 g/dL (14.0-18.0); Mean Corpuscular HGB CONC 30.1 g/dL (32.0-36.0); Mean Corpuscular Hemoglobin 26.6 pg (27.0-31.0); Mean Corpuscular Volume 88.2 fL (78.0-98.0); Mean Platelet Volume 6.5 fL (7.4-10.4); Platelet Count 386 thou/uL (130-400); RBC Distribution Width 12.5 % (11.5-14.5); Red Blood Cell (RBC) Count 3.69 mill/uL (4.70-6.10); White Blood Cell (WBC) Count 6.2 thou/uL (4.8-10.8)
[2021-10-29 07:14] LABS: Anion Gap 15 mmol/L (10-20); BUN (Urea Nitrogen) 16 mg/dL (8.4-25.7); CRP (Inflammatory) 13.83 mg/dL (= or < 0.5); Calc. Creatinine Clearance 109 mL/min (70-130); Calcium 9.3 mg/dL (7.8-10.44); Carbon Dioxide 25 mmol/L (23-31); Chloride 102 mmol/L (98-107); Estimated GFR 95; Glucose 69 mg/dL (80-115); Sodium 138 mmol/L (136-145)
[2021-10-29 07:59] LABS: INR-International Normal Ratio 1.4; Prothrombin Time 17.8 sec (12.0-14.7)
[2021-10-29 08:01] LABS: D-Dimer Test 3.34 *mcg/mL (0.27-0.43)
[2021-10-29] MEDS: Ascorbic Acid 500 mg Chewable Tablet PO SCH (10:41)
[2021-10-29] MEDS: Tamsulosin HCl 0.4 MG CAP PO SCH (10:42)
[2021-10-29] MEDS: Gabapentin 400 MG CAP PO SCH ×2 (10:42→21:15)
[2021-10-29] MEDS: DULoxetine 30 MG CAP PO SCH (10:42)
[2021-10-29] MEDS: Zinc Sulfate 220 MG CAP PO SCH (10:42)
[2021-10-29] MEDS: Dexamethasone 4 MG TAB PO SCH (10:43)
[2021-10-29] MEDS: Enoxaparin Sodium 100 MG/ML SYRINGE SC SCH ×2 (10:43→21:14)
[2021-10-29] MEDS: Famotidine 20 MG TAB PO SCH ×2 (10:44→21:15)
[2021-10-29] MEDS: Hydrochlorothiazide 25 MG TAB PO SCH (10:44)
[2021-10-29] MEDS: Amlodipine 10 MG TAB PO SCH (10:44)
[2021-10-29] MEDS: metFORMIN 500 MG TAB PO SCH ×2 (10:51→17:12)
[2021-10-29] MEDS: Insulin Glargine 30 UNITS/0.3 ML VIAL SC SCH ×2 (11:21→21:17)
[2021-10-29] MEDS: Warfarin Sodium 5 MG TAB PO SCH (17:13)
[2021-10-29] MEDS: Warfarin Sodium 10 MG TAB PO SCH (17:13)
[2021-10-29] MEDS: HumaLOG 300 UNITS/3 ML VIAL SC PRN (21:18)
[2021-10-30] MEDS: Piperacillin/Tazobactam 3.375 GM in Sodium Chloride 0.9% 100 ML IVPB SCH ×4 (00:23→23:57)
[2021-10-30] MEDS: HumaLOG 300 UNITS/3 ML VIAL SC PRN (05:24)
[2021-10-30 06:24] LABS: INR-International Normal Ratio 1.7; Prothrombin Time 19.9 sec (12.0-14.7)
[2021-10-30] MEDS: DULoxetine 30 MG CAP PO SCH (08:35)
[2021-10-30] MEDS: Enoxaparin Sodium 100 MG/ML SYRINGE SC SCH ×2 (08:35→20:43)
[2021-10-30] MEDS: Hydrochlorothiazide 25 MG TAB PO SCH (08:36)
[2021-10-30] MEDS: Dexamethasone 4 MG TAB PO SCH (08:36)
[2021-10-30] MEDS: metFORMIN 500 MG TAB PO SCH ×2 (08:36→17:38)
[2021-10-30] MEDS: Ascorbic Acid 500 mg Chewable Tablet PO SCH (08:36)
[2021-10-30] MEDS: Zinc Sulfate 220 MG CAP PO SCH (08:37)
[2021-10-30] MEDS: Amlodipine 10 MG TAB PO SCH (08:37)
[2021-10-30] MEDS: Famotidine 20 MG TAB PO SCH ×2 (08:37→20:43)
[2021-10-30] MEDS: Gabapentin 400 MG CAP PO SCH ×2 (08:37→20:43)
[2021-10-30] MEDS: Insulin Glargine 30 UNITS/0.3 ML VIAL SC SCH ×2 (08:38→20:43)
[2021-10-30] MEDS: Tamsulosin HCl 0.4 MG CAP PO SCH (08:39)
[2021-10-30] MEDS: Warfarin Sodium 10 MG TAB PO SCH (17:39)
[2021-10-30] MEDS: Warfarin Sodium 5 MG TAB PO SCH (17:39)
[2021-10-31 06:33] LABS: #Basophils 0.1 thou/uL (0.0-0.2); #Eosinphils 0.1 thou/uL (0.0-0.7); #Lymphocytes 3.2 thou/uL (1.20-3.40); #Monocytes 0.4 thou/uL (0.11-0.59); %Basophils 1.2 % (0.0-1.0); %Eosinophils 0.7 % (0.0-10.0); %Lymphocytes 41.5 % (21.0-51.0); %Monocytes 5.4 % (0.0-10.0); %Neutrophils 51.2 % (42.0-75.0); Hemoglobin 11.1 g/dL (14.0-18.0); Mean Corpuscular HGB CONC 32.7 g/dL (32.0-36.0); Mean Corpuscular Hemoglobin 28.5 pg (27.0-31.0); Mean Corpuscular Volume 87.3 fL (78.0-98.0); Mean Platelet Volume 6.6 fL (7.4-10.4); Platelet Count 460 thou/uL (130-400); RBC Distribution Width 12.4 % (11.5-14.5); Red Blood Cell (RBC) Count 3.88 mill/uL (4.70-6.10); White Blood Cell (WBC) Count 7.8 thou/uL (4.8-10.8)
[2021-10-31 06:51] LABS: Anion Gap 16 mmol/L (10-20); BUN (Urea Nitrogen) 15 mg/dL (8.4-25.7); Calc. Creatinine Clearance 103 mL/min (70-130); Calcium 9.9 mg/dL (7.8-10.44); Carbon Dioxide 28 mmol/L (23-31); Chloride 99 mmol/L (98-107); Estimated GFR 88; Potassium 3.6 mmol/L (3.5-5.1); Sodium 139 mmol/L (136-145)
[2021-10-31 06:58] LABS: Glucose 55 mg/dL (80-115); INR-International Normal Ratio 1.8; Prothrombin Time 20.7 sec (12.0-14.7)
[2021-10-31] MEDS: Hydrochlorothiazide 25 MG TAB PO SCH (07:55)
[2021-10-31] MEDS: Tamsulosin HCl 0.4 MG CAP PO SCH (07:55)
[2021-10-31] MEDS: Zinc Sulfate 220 MG CAP PO SCH (07:55)
[2021-10-31] MEDS: Famotidine 20 MG TAB PO SCH ×2 (07:55→20:42)
[2021-10-31] MEDS: Amlodipine 10 MG TAB PO SCH (07:56)
[2021-10-31] MEDS: Ascorbic Acid 500 mg Chewable Tablet PO SCH (07:56)
[2021-10-31] MEDS: Dexamethasone 4 MG TAB PO SCH (07:56)
[2021-10-31] MEDS: Gabapentin 400 MG CAP PO SCH ×2 (07:56→20:41)
[2021-10-31] MEDS: DULoxetine 30 MG CAP PO SCH (07:56)
[2021-10-31] MEDS: Piperacillin/Tazobactam 3.375 GM in Sodium Chloride 0.9% 100 ML IVPB SCH ×2 (07:57→17:18)
[2021-10-31] MEDS: metFORMIN 500 MG TAB PO SCH ×2 (10:38→17:18)
[2021-10-31] MEDS: Insulin Glargine 30 UNITS/0.3 ML VIAL SC SCH (10:39)
[2021-10-31] MEDS: Enoxaparin Sodium 100 MG/ML SYRINGE SC SCH ×2 (10:55→20:42)
[2021-10-31] MEDS ORDERED: Warfarin Sodium 5 MG TAB PO SCH (11:30)
[2021-10-31] MEDS: HumaLOG 300 UNITS/3 ML VIAL SC PRN ×3 (13:12→20:42)
[2021-10-31] MEDS: Warfarin Sodium 5 MG TAB PO SCH (17:18)
[2021-10-31] MEDS: Warfarin Sodium 10 MG TAB PO SCH (17:18)
[2021-11-01] MEDS: Piperacillin/Tazobactam 3.375 GM in Sodium Chloride 0.9% 100 ML IVPB SCH ×3 (00:03→17:14)
[2021-11-01] MEDS: DULoxetine 30 MG CAP PO SCH (08:14)
[2021-11-01] MEDS: Zinc Sulfate 220 MG CAP PO SCH (08:14)
[2021-11-01] MEDS: Famotidine 20 MG TAB PO SCH ×2 (08:14→20:52)
[2021-11-01] MEDS: Gabapentin 400 MG CAP PO SCH ×2 (08:14→20:52)
[2021-11-01] MEDS: Amlodipine 10 MG TAB PO SCH (08:14)
[2021-11-01] MEDS: Ascorbic Acid 500 mg Chewable Tablet PO SCH (08:14)
[2021-11-01] MEDS: Insulin Glargine 30 UNITS/0.3 ML VIAL SC SCH (08:14)
[2021-11-01] MEDS: Dexamethasone 4 MG TAB PO SCH (08:15)
[2021-11-01] MEDS: Tamsulosin HCl 0.4 MG CAP PO SCH (08:15)
[2021-11-01] MEDS: metFORMIN 500 MG TAB PO SCH ×2 (08:15→17:14)
[2021-11-01] MEDS: Hydrochlorothiazide 25 MG TAB PO SCH (08:15)
[2021-11-01 08:23] LABS: INR-International Normal Ratio 2.3; Prothrombin Time 25.7 sec (12.0-14.7)
[2021-11-01] MEDS: Enoxaparin Sodium 100 MG/ML SYRINGE SC SCH (08:28)
[2021-11-01] MEDS: HumaLOG 300 UNITS/3 ML VIAL SC PRN ×2 (17:14→20:56)
[2021-11-01] MEDS: Warfarin Sodium 10 MG TAB PO SCH (17:15)
[2021-11-01] MEDS: Warfarin Sodium 5 MG TAB PO SCH (17:15)
[2021-11-01] MEDS: Acetaminophen 325 MG TAB PO PRN (20:53)
[2021-11-02] MEDS: Piperacillin/Tazobactam 3.375 GM in Sodium Chloride 0.9% 100 ML IVPB SCH ×2 (00:20→08:55)
[2021-11-02] MEDS: HumaLOG 300 UNITS/3 ML VIAL SC PRN ×4 (05:17→21:46)
[2021-11-02 06:03] LABS: INR-International Normal Ratio 2.3; Prothrombin Time 25.3 sec (12.0-14.7)
[2021-11-02] MEDS: Zinc Sulfate 220 MG CAP PO SCH (08:54)
[2021-11-02] MEDS: Amlodipine 10 MG TAB PO SCH (08:54)
[2021-11-02] MEDS: Dexamethasone 4 MG TAB PO SCH (08:54)
[2021-11-02] MEDS: metFORMIN 500 MG TAB PO SCH ×2 (08:54→16:06)
[2021-11-02] MEDS: Gabapentin 400 MG CAP PO SCH ×2 (08:54→21:46)
[2021-11-02] MEDS: DULoxetine 30 MG CAP PO SCH (08:54)
[2021-11-02] MEDS: Ascorbic Acid 500 mg Chewable Tablet PO SCH (08:55)
[2021-11-02] MEDS: Tamsulosin HCl 0.4 MG CAP PO SCH (08:55)
[2021-11-02] MEDS: Insulin Glargine 30 UNITS/0.3 ML VIAL SC SCH (08:55)
[2021-11-02] MEDS: Famotidine 20 MG TAB PO SCH ×2 (08:55→21:46)
[2021-11-02] MEDS: Hydrochlorothiazide 25 MG TAB PO SCH (08:55)
[2021-11-02] MEDS: Warfarin Sodium 5 MG TAB PO SCH (16:06)
[2021-11-02] MEDS: Warfarin Sodium 10 MG TAB PO SCH (16:07)
[2021-11-03 06:04] LABS: INR-International Normal Ratio 2.3; Prothrombin Time 25.6 sec (12.0-14.7)
[2021-11-03] MEDS: Tamsulosin HCl 0.4 MG CAP PO SCH (08:47)
[2021-11-03] MEDS: Gabapentin 400 MG CAP PO SCH ×2 (08:47→20:50)
[2021-11-03] MEDS: Zinc Sulfate 220 MG CAP PO SCH (08:47)
[2021-11-03] MEDS: Ascorbic Acid 500 mg Chewable Tablet PO SCH (08:47)
[2021-11-03] MEDS: Famotidine 20 MG TAB PO SCH ×2 (08:48→20:51)
[2021-11-03] MEDS: Hydrochlorothiazide 25 MG TAB PO SCH (08:48)
[2021-11-03] MEDS: metFORMIN 500 MG TAB PO SCH ×2 (08:48→17:55)
[2021-11-03] MEDS: DULoxetine 30 MG CAP PO SCH (08:48)
[2021-11-03] MEDS: Amlodipine 10 MG TAB PO SCH (08:48)
[2021-11-03] MEDS: Insulin Glargine 30 UNITS/0.3 ML VIAL SC SCH (08:49)
[2021-11-03] MEDS: Warfarin Sodium 10 MG TAB PO SCH (17:55)
[2021-11-03] MEDS: Warfarin Sodium 5 MG TAB PO SCH (17:55)
[2021-11-03] MEDS: HumaLOG 300 UNITS/3 ML VIAL SC PRN ×2 (17:55→20:51)
[2021-11-04 07:04] LABS: INR-International Normal Ratio 2.3; Prothrombin Time 25.6 sec (12.0-14.7)
[2021-11-04] MEDS: Amlodipine 10 MG TAB PO SCH (08:44)
[2021-11-04] MEDS: metFORMIN 500 MG TAB PO SCH ×2 (08:44→17:32)
[2021-11-04] MEDS: Famotidine 20 MG TAB PO SCH ×2 (08:44→22:17)
[2021-11-04] MEDS: Gabapentin 400 MG CAP PO SCH ×2 (08:44→22:16)
[2021-11-04] MEDS: Ascorbic Acid 500 mg Chewable Tablet PO SCH (08:44)
[2021-11-04] MEDS: Hydrochlorothiazide 25 MG TAB PO SCH (08:44)
[2021-11-04] MEDS: DULoxetine 30 MG CAP PO SCH (08:44)
[2021-11-04] MEDS: Tamsulosin HCl 0.4 MG CAP PO SCH (08:45)
[2021-11-04] MEDS: Zinc Sulfate 220 MG CAP PO SCH (08:45)
[2021-11-04] MEDS: Insulin Glargine 30 UNITS/0.3 ML VIAL SC SCH (08:45)
[2021-11-04] MEDS: HumaLOG 300 UNITS/3 ML VIAL SC PRN ×3 (12:52→17:37)
[2021-11-04] MEDS: Warfarin Sodium 5 MG TAB PO SCH (17:32)
[2021-11-04] MEDS: Warfarin Sodium 10 MG TAB PO SCH (17:32)
[2021-11-05] MEDS: HumaLOG 300 UNITS/3 ML VIAL SC PRN ×2 (05:37→16:38)
[2021-11-05 08:02] LABS: INR-International Normal Ratio 2.6; Prothrombin Time 28.1 sec (12.0-14.7)
[2021-11-05] MEDS: Ascorbic Acid 500 mg Chewable Tablet PO SCH (08:02)
[2021-11-05] MEDS: Tamsulosin HCl 0.4 MG CAP PO SCH (08:02)
[2021-11-05] MEDS: Gabapentin 400 MG CAP PO SCH ×2 (08:02→20:45)
[2021-11-05] MEDS: metFORMIN 500 MG TAB PO SCH ×2 (08:02→16:37)
[2021-11-05] MEDS: Hydrochlorothiazide 25 MG TAB PO SCH (08:02)
[2021-11-05] MEDS: DULoxetine 30 MG CAP PO SCH (08:03)
[2021-11-05] MEDS: Insulin Glargine 30 UNITS/0.3 ML VIAL SC SCH (08:03)
[2021-11-05] MEDS: Famotidine 20 MG TAB PO SCH ×2 (08:03→20:45)
[2021-11-05] MEDS: Zinc Sulfate 220 MG CAP PO SCH (08:03)
[2021-11-05] MEDS: Amlodipine 10 MG TAB PO SCH (08:04)
[2021-11-05] MEDS: Warfarin Sodium 10 MG TAB PO SCH (16:38)
[2021-11-06 06:50] LABS: INR-International Normal Ratio 2.3; Prothrombin Time 26.1 sec (12.0-14.7)
[2021-11-06] MEDS: DULoxetine 30 MG CAP PO SCH (08:17)
[2021-11-06] MEDS: Gabapentin 400 MG CAP PO SCH ×2 (08:17→21:18)
[2021-11-06] MEDS: Amlodipine 10 MG TAB PO SCH (08:18)
[2021-11-06] MEDS: Ascorbic Acid 500 mg Chewable Tablet PO SCH (08:18)
[2021-11-06] MEDS: Hydrochlorothiazide 25 MG TAB PO SCH (08:18)
[2021-11-06] MEDS: Tamsulosin HCl 0.4 MG CAP PO SCH (08:19)
[2021-11-06] MEDS: Insulin Glargine 30 UNITS/0.3 ML VIAL SC SCH (08:19)
[2021-11-06] MEDS: Zinc Sulfate 220 MG CAP PO SCH (08:19)
[2021-11-06] MEDS: metFORMIN 500 MG TAB PO SCH ×2 (08:19→16:21)
[2021-11-06] MEDS: Famotidine 20 MG TAB PO SCH ×2 (08:19→21:18)
[2021-11-06] MEDS: Acetaminophen 325 MG TAB PO PRN (12:51)
[2021-11-06] MEDS: HumaLOG 300 UNITS/3 ML VIAL SC PRN (16:21)
[2021-11-06] MEDS: Warfarin Sodium 10 MG TAB PO SCH (16:21)
[2021-11-07 06:11] LABS: INR-International Normal Ratio 2.4; Prothrombin Time 26.5 sec (12.0-14.7)
[2021-11-07] MEDS: HumaLOG 300 UNITS/3 ML VIAL SC PRN ×2 (06:35→11:47)
[2021-11-07] MEDS: Ascorbic Acid 500 mg Chewable Tablet PO SCH (08:11)
[2021-11-07] MEDS: Gabapentin 400 MG CAP PO SCH ×2 (08:11→20:51)
[2021-11-07] MEDS: metFORMIN 500 MG TAB PO SCH ×2 (08:11→16:54)
[2021-11-07] MEDS: DULoxetine 30 MG CAP PO SCH (08:12)
[2021-11-07] MEDS: Tamsulosin HCl 0.4 MG CAP PO SCH (08:12)
[2021-11-07] MEDS: Amlodipine 10 MG TAB PO SCH (08:12)
[2021-11-07] MEDS: Insulin Glargine 30 UNITS/0.3 ML VIAL SC SCH (08:12)
[2021-11-07] MEDS: Zinc Sulfate 220 MG CAP PO SCH (08:12)
[2021-11-07] MEDS: Hydrochlorothiazide 25 MG TAB PO SCH (08:12)
[2021-11-07] MEDS: Famotidine 20 MG TAB PO SCH ×2 (08:12→20:51)
[2021-11-07] MEDS: Warfarin Sodium 10 MG TAB PO SCH (16:55)
[2021-11-08] MEDS: HumaLOG 300 UNITS/3 ML VIAL SC PRN ×2 (06:15→17:50)
[2021-11-08 06:43] LABS: INR-International Normal Ratio 2.6
[2021-11-08] MEDS: Ascorbic Acid 500 mg Chewable Tablet PO SCH (10:23)
[2021-11-08] MEDS: Gabapentin 400 MG CAP PO SCH ×2 (10:24→20:28)
[2021-11-08] MEDS: DULoxetine 30 MG CAP PO SCH (10:24)
[2021-11-08] MEDS: Zinc Sulfate 220 MG CAP PO SCH (10:25)
[2021-11-08] MEDS: Famotidine 20 MG TAB PO SCH ×2 (10:25→20:28)
[2021-11-08] MEDS: Amlodipine 10 MG TAB PO SCH (10:25)
[2021-11-08] MEDS: Hydrochlorothiazide 25 MG TAB PO SCH (10:26)
[2021-11-08] MEDS: Tamsulosin HCl 0.4 MG CAP PO SCH (10:26)
[2021-11-08] MEDS: Insulin Glargine 30 UNITS/0.3 ML VIAL SC SCH (10:27)
[2021-11-08] MEDS: metFORMIN 500 MG TAB PO SCH ×2 (10:33→17:49)
[2021-11-08] MEDS: Warfarin Sodium 10 MG TAB PO SCH (17:50)
[2021-11-09 07:11] LABS: INR-International Normal Ratio 2.3; Prothrombin Time 25.9 sec (12.0-14.7)
[2021-11-09] MEDS: Gabapentin 400 MG CAP PO SCH ×2 (08:16→20:19)
[2021-11-09] MEDS: Ascorbic Acid 500 mg Chewable Tablet PO SCH (08:17)
[2021-11-09] MEDS: Amlodipine 10 MG TAB PO SCH (08:17)
[2021-11-09] MEDS: Tamsulosin HCl 0.4 MG CAP PO SCH (08:17)
[2021-11-09] MEDS: DULoxetine 30 MG CAP PO SCH (08:18)
[2021-11-09] MEDS: metFORMIN 500 MG TAB PO SCH ×2 (08:18→16:20)
[2021-11-09] MEDS: Famotidine 20 MG TAB PO SCH ×2 (08:19→20:19)
[2021-11-09] MEDS: Hydrochlorothiazide 25 MG TAB PO SCH (08:19)
[2021-11-09] MEDS: Zinc Sulfate 220 MG CAP PO SCH (08:21)
[2021-11-09] MEDS: Insulin Glargine 30 UNITS/0.3 ML VIAL SC SCH (08:21)
[2021-11-09] MEDS: HumaLOG 300 UNITS/3 ML VIAL SC PRN ×2 (12:18→16:24)
[2021-11-09] MEDS: Warfarin Sodium 10 MG TAB PO SCH (16:20)
[2021-11-10 06:24] LABS: INR-International Normal Ratio 2.3; Prothrombin Time 25.6 sec (12.0-14.7)
[2021-11-10] MEDS: Ascorbic Acid 500 mg Chewable Tablet PO SCH (08:16)
[2021-11-10] MEDS: Zinc Sulfate 220 MG CAP PO SCH (08:16)
[2021-11-10] MEDS: Gabapentin 400 MG CAP PO SCH (08:16)
[2021-11-10] MEDS: Famotidine 20 MG TAB PO SCH (08:16)
[2021-11-10] MEDS: metFORMIN 500 MG TAB PO SCH (08:16)
[2021-11-10] MEDS: Amlodipine 10 MG TAB PO SCH (08:16)
[2021-11-10] MEDS: Tamsulosin HCl 0.4 MG CAP PO SCH (08:16)
[2021-11-10] MEDS: Insulin Glargine 30 UNITS/0.3 ML VIAL SC SCH (08:17)
[2021-11-10] MEDS: Hydrochlorothiazide 25 MG TAB PO SCH (08:17)
[2021-11-10] MEDS: DULoxetine 30 MG CAP PO SCH (08:17)
[2021-11-10 11:34] VITALS: BP 118/87; TEMP 98.2
== END 2021-11-10 11:34 | disposition home or self-care (01) | DRG 299 ==
LOC: ERS 19:52 → 2NO 22:23 → OBSVTOIN 10-22 12:38 → T4-B 10-25 14:04
PROVIDERS: ADMIT Hospitalist; ATTEND Family Medicine
PROC: 8E0ZXY6 Isolation (ICD-10-PCS; principal; 2021-10-27)
DX: I82.412 Acute embolism and thrombosis of left femoral vein (principal); U07.1 COVID-19; J12.82 Pneumonia due to coronavirus disease 2019; N39.0 Urinary tract infection, site not specified; Z16.23 Resistance to quinolones and fluoroquinolones; I69.351 Hemiplegia and hemiparesis following cerebral infarction affecting right dominant side; B96.20 Unspecified Escherichia coli [E. coli] as the cause of diseases classified elsewhere; E11.65 Type 2 diabetes mellitus with hyperglycemia; E78.5 Hyperlipidemia, unspecified; I10 Essential (primary) hypertension; N40.0 Benign prostatic hyperplasia without lower urinary tract symptoms; J45.909 Unspecified asthma, uncomplicated; L13.8 Other specified bullous disorders; R13.10 Dysphagia, unspecified; Z28.21 Immunization not carried out because of patient refusal; Z86.718 Personal history of other venous thrombosis and embolism; Z79.01 Long term (current) use of anticoagulants; Z89.611 Acquired absence of right leg above knee; Z79.899 Other long term (current) drug therapy; Z79.84 Long term (current) use of oral hypoglycemic drugs
CPT/HCPCS: 36415; 36416; 71045; 71250; 80048; 80053; 81003; 81015; 82728; 83605; 83615; 84145; 84484; 85025; 85379; 85610; 85730; 86140; 87040; 87077; 87086; 87186; 87449; 87899; 93005; 96372; 97139; G0378; J0696; J1650; J1815; J2543; J3490; J7030; J8540; U0003; U0005